=== PATIENT | female | born 1970 | race Caucasian/White ===

== ENCOUNTER 2017-04-15 18:49 | Inpatient (IN) | payer OTHER, MEDICAID ==
[~2017-04-15] VITALS: Ht 160 cm; Wt 45.4 kg
[2017-04-15 19:03] VITALS: BP 126/79
--- NOTE | 2017-04-15 19:46 | NUR ---
PT TO BED 1 FROM [facility]
--- NOTE | 2017-04-15 19:47 | NUR ---
PATIENT PRESENTS TO ED WITH C/O CHEST PAIN AND COUGHING/FEVER. BIBA FROM HOME. ASA 324MG PO GIVEN IN FIELD,COUGH. HX: LUNG CANCER. TAKING EMYCIN UNKNOWN DOSAGE PER PATIENT,STILL RECEIVING CHEMO. TX PT DENIES N/V/D; SKIN IS PINK/WARM/DRY; AAOX4 WITH EVEN AND STEADY GAIT; HR EVEN AND REGULAR; PT DENIES ANY FEVER, CP, SOB, OR COUGH AT THIS TIME; PATIENT STATES PAIN OF 10/10 AT THIS TIME; PATIENT POSITIONED FOR COMFORT; HOB ELEVATED; BEDRAILS UP X2; BED DOWN. ER MD MADE AWARE OF PT STATUS.
[2017-04-15] MEDS ORDERED: IBUPROFEN 600 MG TAB ONE (19:58)
[2017-04-15] MEDS ORDERED: NACL 0.9% 2,000 ML IV ONE (20:15)
[2017-04-15 20:26] LABS: HEMOGLOBIN 12.6 g/dL (12.0-16.0); MEAN CORPUSCULAR HEMOGLOBIN 26 pg (27-31); MEAN CORPUSCULAR HGB CONC 32 g/dL (33-37); MEAN CORPUSCULAR VOLUME 81 fL (80-94); PLATELET COUNT (AUTO) 256 K/uL (140-450); RED BLOOD CELL COUNT(AUTO) 4.83 MIL/uL (4.20-5.40); RED CELL DISTRIBUTION WIDTH 12.4 % (11.6-13.7); WHITE BLOOD COUNT (AUTO) 4.6 K/uL (4.8-10.8)
[2017-04-15] MEDS ORDERED: VANCOMYCIN 1,000 MG in DEXTROSE 5% 250 ML IV ONE (20:30)
[2017-04-15] MEDS ORDERED: cefTRIAXone 2,000 MG in DEXTROSE 5% 100 ML IV ONE (20:30)
[2017-04-15 20:32] LABS: ANION GAP 13.2 (8-16); CARBON DIOXIDE 27.9 mmol/L (21-32); CREATININE 1.1 mg/dL (0.6-1.3); POTASSIUM 4.1 mmol/L (3.5-5.1)
[2017-04-15 20:38] LABS: ALBUMIN 3.6 g/dL (3.4-5.0); TOTAL BILIRUBIN 0.3 mg/dL (0.0-1.0)
[2017-04-15 20:43] LABS: EOSINOPHILS % (MANUAL) 1 % (0-4); LYMPHOCYTES % (MANUAL) 24 % (20-46); MAGNESIUM 2.1 mg/dL (1.8-2.4); MONOCYTES % (MANUAL) 14 % (5-12); URIC ACID 4.9 mg/dL (2.6-7.2)
[2017-04-15] MEDS ORDERED: cefTRIAXone 2,000 MG VIAL ONE (20:59)
[2017-04-15] MEDS ORDERED: VANCOMYCIN 1,000 MG VIAL ONE (20:59)
[2017-04-15] MEDS ORDERED: MORPHINE SULFATE 2 MG/ML SYR IVP ONE (21:15)
[2017-04-15] MEDS ORDERED: ONDANSETRON 4 MG/2 ML VIAL IVP ONE (21:15)
--- NOTE | 2017-04-15 21:30 | NUR ---
Patient appears to be resting comfortably in bed. Vital Signs within normal limits. Respirations even and unlabored.
--- NOTE | 2017-04-15 21:45 | NUR ---
PT TO CT VIA [facility] IN STABLE CONDITION
--- NOTE | 2017-04-15 22:20 | NUR ---
PT RETURNED FROM CT [facility]IA [facility] IN STABLE CONDITION
[2017-04-15] MEDS: NACL 0.9% 1,000 ML IV SCH (23:25)
[2017-04-15] MEDS ORDERED: LEVOFLOXACIN 750 MG/D5W PREMIX 150 ML IV ONE (23:25)
[2017-04-15] MEDS ORDERED: LORazepam 0.5 MG TAB PO PRN (23:25)
[2017-04-15] MEDS ORDERED: ACETAMINOPHEN 325 MG TAB PO PRN (23:25)
[2017-04-15] MEDS ORDERED: DOCUSATE SODIUM 100 MG GELCAP PO PRN (23:25)
--- NOTE | 2017-04-15 23:32 | NUR ---
LUMBAR PUNCTAR PERFORMED BY DR PARRA. PT TOLERATED WELL.
[2017-04-15] MEDS ORDERED: MORPHINE SULFATE 4 MG/ML SYR IVP ONE (23:40)
[2017-04-16 00:14] VITALS: BP 93/64
[2017-04-16 00:14] LABS: CSF GLUCOSE 46 mg/dL (40-70)
--- NOTE | 2017-04-16 00:14 | NUR ---
RECEIVED PT FROM ER. PT IN STABLE CONDITION. NO S/S OF DISTRESS NOTED. PT IS AAOX4, COUGH NOTED INTERMITTENT, NON-PRODUCTIVE. SKIN WARM AND DRY TO TOUCH, COLOR WNL. IV TO R AC 20G PATENT AND INTACT. SKIN IS INTACT. BOWEL SOUNDS PRESENT. PT CAME IN WITH C/O SOB AND DX PNEUMONIA. PT HAS LUNG CANCER BUT STOPPED CHEMO 5 YEARS AGO PER PT. RAISIN WASHER [id number] USED TO ASK ADMISSION QUESTIONS.
[2017-04-16 00:15] LABS: CSF PROTEIN 40.8 mg/dL (15-45)
--- NOTE | 2017-04-16 00:20 | NUR ---
DR. DEE IN TO SEE PT AND ASSESS PT. PLAN OF CARE DISCUSSED WITH PT
--- NOTE | 2017-04-16 00:20 | NUR ---
Patient will be admitted to care of DR GRECO. Admited to TELE. Will go to [id number]. Belongings list completed. Report to CARMEN ARIAS.
[2017-04-16 01:06] LABS: CHOL/HDL RATIO 5.3 (1-4.5); FREE T4 (FREE THYROXINE) 1.01 ng/dL (0.76-1.46); PHOSPHORUS 4.2 mg/dL (2.5-4.9); THYROID STIMULATING HORMONE 0.42 uIU/mL (0.34-3.74)
[2017-04-16] MEDS ORDERED: ALBUTEROL SULFATE/IPRATROPIU 3 ML SOL IH PRN (01:10)
[2017-04-16 01:36] LABS: APPEARANCE,URINE CLEAR (CLEAR); BILIRUBIN,URINE NEGATIVE (NEGATIVE); BLOOD, URINE NEGATIVE (NEGATIVE); COLOR,URINE YELLOW (YELLOW); LEUKOCYTE ESTERASE ,URINE NEGATIVE (NEGATIVE); NITRITE, URINE NEGATIVE (NEGATIVE); PH,URINE 6.5 (5.0-9.0); UGLUCOSE NEGATIVE (NEGATIVE)
[2017-04-16 01:43] LABS: BARBITURATE, URINE NEG. ng/ml (NEG <=200); BENZODIAZEPINE, URINE NEG. ng/mL (NEG <=200); CANNABINOID, URINE NEG. ng/mL (NEG <=50); COCAINE, URINE NEG. ng/mL (NEG <=300); OPIATE, URINE NEG. ng/mL (NEG <=2000); PHENCYCLIDINE SCREEN,URINE NEG. ng/mL (NEG <=25)
[2017-04-16 03:27] LABS: RBC,URINE 0-5 (RARE) /HPF (0-5); WBC,URINE 0-5 (RARE) /HPF (0-5)
--- NOTE | 2017-04-16 04:05 | NUR ---
0325 [facility] HHNTX. PATIENT ON ROOM AIR SATS WERE 77%. PT HAS CONTINUOUS COUGH. HHNTX GIVEN AND PLACED PT ON 3LNC. SATS IMPROVED. 100%
[2017-04-16] MEDS: KETOROLAC 30 MG/ML VIAL IVP PRN ×4 (05:03→21:04)
[2017-04-16 05:13] VITALS: BP 100/67
[2017-04-16] MEDS ORDERED: COBI1TAB PO (06:17)
[2017-04-16] MEDS ORDERED: EMTR1TAB16 PO (06:17)
[2017-04-16 06:57] LABS: BASOPHILS # (AUTO) 0.1 K/uL (0.00-0.22); BASOPHILS % (AUTO) 1.2 % (0.0-2.0); EOSINOPHILS # (AUTO) 0.1 K/uL (0-0.4); EOSINOPHILS % (AUTO) 1.5 % (0.0-4.0); HEMATOCRIT 35.6 % (36-48); HEMOGLOBIN 11.7 g/dL (12.0-16.0); LYMPHOCYTES # (AUTO) 0.8 K/uL (2.5-16.5); LYMPHOCYTES % (AUTO) 17.6 % (20.5-51.1); MEAN CORPUSCULAR HEMOGLOBIN 27 pg (27-31); MEAN CORPUSCULAR HGB CONC 33 g/dL (33-37); MEAN CORPUSCULAR VOLUME 82 fL (80-94); MONOCYTES # (AUTO) 0.7 K/uL (0.8-1.0); MONOCYTES % (AUTO) 15.4 % (1.7-9.3); NEUTROPHILS # (AUTO) 2.9 K/uL (1.8-7.7); NEUTROPHILS % (AUTO) 64.3 % (42.2-75.2); PLATELET COUNT (AUTO) 195 K/uL (140-450); RED BLOOD CELL COUNT(AUTO) 4.35 MIL/uL (4.20-5.40); RED CELL DISTRIBUTION WIDTH 12.9 % (11.6-13.7); WHITE BLOOD COUNT (AUTO) 4.6 K/uL (4.8-10.8)
[2017-04-16] MEDS: ALBUTEROL SULFATE/IPRATROPIU 3 ML SOL IH SCH ×3 (07:03→19:00)
[2017-04-16 07:18] LABS: ANION GAP 10.3 (8-16); CARBON DIOXIDE 28.3 mmol/L (21-32); CREATININE 0.9 mg/dL (0.6-1.3); POTASSIUM 4.6 mmol/L (3.5-5.1)
[2017-04-16 07:26] LABS: MAGNESIUM 1.7 mg/dL (1.8-2.4); PHOSPHORUS 3.9 mg/dL (2.5-4.9)
--- NOTE | 2017-04-16 07:48 | NUR ---
REPORT GIVEN TO DAY NURSE FOR CONTINUITY OF CARE, PT IN STABLE CONDITION. NO S/S OF DISTRESS NOTED
--- NOTE | 2017-04-16 07:49 | NUR ---
RECEIVED REPORT FROM SHOP WELDER RN AT BEDSIDE FOR CONTINUITY OF CARE. UPDATED THE BOARD. PATIENT IS A0X4, NEPALI SPEAKING, CURRENTLY GETTING BREATHING TREATMENT. PATIENT ON NC O2 3L. IV ON L AC #20G WITH NS RUNNING AT 100ML/HR. PATIENT IS AMBULATORY. SKIN INTACT. VITAL SIGNS WITHIN NORMAL LIMITS WITH BP 94/59. SAFETY PRECAUTIONS IN PLACE, BED ON LOWEST SETTING, CALL LIGHT WITHIN REACH. WILL CONTINUE TO MONITOR PATIENT.
[2017-04-16 08:00] VITALS: BP 94/59
--- NOTE | 2017-04-16 08:20 | NUR ---
FAXED OVER REQUEST FOR MEDICAL RECORDS.
[2017-04-16] MEDS: LACTOBACILLUS RHAMNOSUS GG 1 EACH CAP PO SCH (08:42)
[2017-04-16] MEDS: PANTOPRAZOLE 40 MG TABEC PO SCH (08:42)
[2017-04-16] MEDS: SULFAMETH/TRIMETH 400/80MG 1 TAB PO SCH ×2 (08:43→20:53)
--- NOTE | 2017-04-16 08:45 | NUR ---
ADMINISTERED MORNING MEDICATIONS. PT TOLERATED THEM WELL. PT C/O PAIN 9/10 D/T RIGHT UPPER CHEST AND BACK PAIN. TORADOL IVP PRN ADMINISTERED. DR. PIÑA IN TO SEE PATIENT. DR. PIÑA ORDERED KPAD FOR PT'S COMFORT. KPAD APPLIED. SAFETY PRECAUTIONS IN PLACE, CALL LIGHT WITHIN REACH, WILL CONTINUE TO MONITOR PATIENT.
--- NOTE | 2017-04-16 08:46 | NUR ---
PATIENT HAS BEEN SCREENED AND CATEGORIZED MODERATE NUTRITION RISK. PATIENT WILL BE SEEN IN 3-5 DAYS. 04/17/17-04/19/[address]
--- NOTE | 2017-04-16 09:00 | NUR ---
MEDICAL [place] [facility] G[place] THEM TO DR. PIÑA FOR REVIEW.
[2017-04-16] MEDS: NACL 0.9% 1,000 ML IV SCH ×2 (09:01→19:25)
[2017-04-16] MEDS ORDERED: EMTRICITABINE PO SCH (09:25)
[2017-04-16] MEDS ORDERED: DARUNAVIR PO SCH (09:25)
[2017-04-16] MEDS ORDERED: TENOFOV ALAFENAM PO SCH (09:25)
[2017-04-16] MEDS ORDERED: COBICISTAT PO SCH (09:25)
[2017-04-16] MEDS ORDERED: MAG SULF 2000 MG/WATER PREMIX 100 ML IV SCH (10:00)
--- NOTE | 2017-04-16 10:30 | NUR ---
NOTIFIED PT TO HAVE NON FORMULARY MEDICATIONS BROUGHT FROM HOME SO WE CAN DISPENSE IT TO PT HERE. PT WILL HAVE MOM BRING MEDICATIONS FROM HOME.
[2017-04-16 12:00] VITALS: BP 92/60
--- NOTE | 2017-04-16 12:50 | NUR ---
PATIENT IS SLEEPING, NO SIGNS OF DISTRESS OR SOB NOTED. SAFETY PRECAUTIONS IN PLACE, CALL LIGHT WITHIN REACH, WILL CONTINUE TO MONITOR PATIENT.
--- NOTE | 2017-04-16 14:42 | NUR ---
PATIENT C/O PAIN IN LEFT UPPER CHEST AND BACK, /10. TORADOL PRN IVP GIVEN. PATIENT FELT WARM, ORAL TEMP 100.8, KPAD REMOVED AND ICE PACK GIVEN. SAFETY PRECAUTIONS IN PLACE, CALL LIGHT WITHIN REACH. WILL CONTINUE TO MONITOR PATIENT.
--- NOTE | 2017-04-16 15:42 | NUR ---
PATIENT IS RESTING. ORAL TEMP 99.5. NO SIGNS OF DISTRESS OR SOB NOTED. SAFETY PRECAUTIONS IN PLACE. CALL LIGHT WITHIN REACH. WILL CONTINUE TO MONITOR PATIENT.
[2017-04-16 16:00] VITALS: BP 94/53
--- NOTE | 2017-04-16 16:50 | NUR ---
PATIENT AMBULATED TO THE BATHROOM WITH STEADY GAIT. ORAL TEMP 98.2, KPAD REAPPLIED FOR COMFORT. NO SIGNS OF DISTRESS OR SOB NOTED. SAFETY PRECAUTIONS IN PLACE. CALL LIGHT WITHIN REACH. WILL CONTINUE TO MONITOR PATIENT.
--- NOTE | 2017-04-16 18:20 | NUR ---
PATIENT IS SLEEPING. NO S/SX OF DISTRESS OR SOB NOTED. SAFETY PRECAUTIONS IN PLACE, CALL LIGHT WITHIN REACH. WILL CONTINUE TO MONITOR PATIENT.
--- NOTE | 2017-04-16 19:05 | NUR ---
GAVE REPORT TO FITTER TYPE BAR AND SEGMENT RN AT BEDSIDE FOR CONTINUITY OF CARE. PATIENT IN STABLE CONDITION.
--- NOTE | 2017-04-16 19:07 | NUR ---
RECEIVED REPORT FROM DAY SHIFT NURSE. AAOX4. RT IN THE ROOM FOR BREATHING TREATMENT. IV TO LEFT AC #20G WITH NS AT 100 ML/HR, INFUSING WELL. DISCUSSED PLAN OF CARE, PT VERBALIZED UNDERSTANDING. NO DISTRESS NOTED. CALL LIGHT WITHIN REACH.
[2017-04-16 20:00] VITALS: BP 98/67
--- NOTE | 2017-04-16 21:45 | NUR ---
PT SLEEPING BUT WAKES EASILY. NO S/S OF PAIN. WILL CONTINUE TO MONITOR. CALL LIGHT WITHIN REACH.
[2017-04-16] MEDS: LEVOFLOXACIN 750 MG/D5W PREMIX 150 ML IV SCH (23:46)
[2017-04-17] VITALS: BP 100/62
--- NOTE | 2017-04-17 00:15 | NUR ---
PT IN BED, AWAKE. NO DISTRESS NOTED. CALL LIGHT WITHIN REACH.
--- NOTE | 2017-04-17 03:00 | NUR ---
DR. SOLOMON, INFECTIOUS DISEASE CAME IN TO SEE PT. ORDERED LEFT SHOULDER XRAY AND ORTHOPEDIC EVAL.
--- NOTE | 2017-04-17 03:00 | NUR ---
DR. SOLOMON, INFECTIOUS DISEASE CAME IN TO SEE PT. ORDERED RIGHT SHOULDER XRAY AND ORTHOPEDIC EVAL. Addendum: 04/17/17 at 0453 by Eleni Han RN ERROR
[2017-04-17] MEDS: KETOROLAC 30 MG/ML VIAL IVP PRN ×4 (03:11→23:19)
[2017-04-17 04:20] VITALS: BP 84/50
[2017-04-17] MEDS ORDERED: NACL 0.9% 250 ML IV SCH (04:25)
[2017-04-17] MEDS: NACL 0.9% 1,000 ML IV SCH ×2 (05:25→18:15)
--- NOTE | 2017-04-17 05:28 | NUR ---
VS TAKEN. BP 84/50. DR. DEE ORDERED NS 250ML BOLUS. ORDER CARRIED OUT.
[2017-04-17 06:27] LABS: T4 (THYROXINE) 7.5 ug/dL (4.5-12.0)
--- NOTE | 2017-04-17 06:28 | NUR ---
V/S TAKEN BP 96/62, HR 85, RR 18, O2 96% AT 2 L/MIN VIA NC, RR 20. DR. DEE MADE AWARE. NO NEW ORDER.
[2017-04-17] MEDS: ALBUTEROL SULFATE/IPRATROPIU 3 ML SOL IH SCH ×3 (07:06→19:34)
--- NOTE | 2017-04-17 07:20 | NUR ---
ENDORSED PT TO DAY SHIFT NURSE. PT IN STABLE CONDITION.
--- NOTE | 2017-04-17 07:21 | NUR ---
RECEIVED REPORT FROM COAL MINER NURSE. AAOX4, NEPALI SPEAKING, RT IN THE ROOM FOR BREATHING TREATMENT. IV TO LEFT AC #20G WITH NS AT 100 ML/HR, INFUSING WELL. NO DISTRESS NOTED. CALL LIGHT WITHIN REACH. WILL CONTINUE TO MONITOR PATIENT.
[2017-04-17 07:49] LABS: HEMATOCRIT 33.7 % (36-48); HEMOGLOBIN 10.9 g/dL (12.0-16.0); MEAN CORPUSCULAR HEMOGLOBIN 27 pg (27-31); MEAN CORPUSCULAR HGB CONC 32 g/dL (33-37); MEAN CORPUSCULAR VOLUME 83 fL (80-94); PLATELET COUNT (AUTO) 173 K/uL (140-450); RED BLOOD CELL COUNT(AUTO) 4.08 MIL/uL (4.20-5.40); WHITE BLOOD COUNT (AUTO) 3.5 K/uL (4.8-10.8)
[2017-04-17 08:00] VITALS: BP 100/61
[2017-04-17 08:28] LABS: ANION GAP 10.4 (8-16); CREATININE 0.8 mg/dL (0.6-1.3); POTASSIUM 4.4 mmol/L (3.5-5.1)
[2017-04-17] MEDS: CEFEPIME 1,000 MG in DEXTROSE 5% 50 ML IV SCH ×2 (09:04→22:15)
[2017-04-17] MEDS: LACTOBACILLUS RHAMNOSUS GG 1 EACH CAP PO SCH (09:04)
[2017-04-17] MEDS: PANTOPRAZOLE 40 MG TABEC PO SCH (09:04)
[2017-04-17] MEDS: SULFAMETH/TRIMETH 400/80MG 1 TAB PO SCH ×2 (09:23→22:32)
--- NOTE | 2017-04-17 09:25 | NUR ---
ADMINISTERED MORNING MEDICATIONS AND TORADOL IVP PRN FOR PAIN. PATIENT TOLERATED THEM WELL. NO S/SX OF DISTRESS OR SOB NOTED. SAFETY PRECAUTIONS IN PLACE. BED ON LOWEST SETTING, CALL LIGHT WITHIN REACH. WILL CONTINUE TO MONITOR PATIENT.
[2017-04-17 09:47] LABS: LYMPHOCYTES % (MANUAL) 31 % (20-46); MONOCYTES % (MANUAL) 13 % (5-12)
--- NOTE | 2017-04-17 12:33 | NUR ---
PT IS ASLEEP NO APPARENT DISTRESS
--- NOTE | 2017-04-17 13:08 | NUR ---
LAB CALLED, PT POSITIVE FOR MRSA IN NARES. PHYSICIANS NOTIFIED. ISOLATION PRECAUTIONS PUT IN PLACE. PATIENT SLEEPING. SAFETY PRECAUTIONS IN PLACE. WILL CONTINUE TO MONITOR PATIENT.
--- NOTE | 2017-04-17 14:15 | NUR ---
PATIENT ASLEEP. NO SIGNS OF DISTRESS OR SOB NOTED. SAFETY PRECAUTIONS IN PLACE. WILL CONTINUE TO MONITOR PATIENT.
[2017-04-17] MEDS: CHLORHEXADINE GLUC 2% CLOTH TP SCH (14:46)
[2017-04-17 16:00] VITALS: BP 94/66
--- NOTE | 2017-04-17 16:45 | NUR ---
PATIENT C/O PAIN ON LEFT UPPER CHEST 8/10, TORADOL IVP PRN ADMINISTERED. NO SIGNS OF DISTRESS NOTED. SAFETY PRECAUTIONS IN PLACE. WILL CONTINUE TO MONITOR PATIENT.
[2017-04-17] MEDS ORDERED: DESCOVY 200-25MG TAB PO SCH (17:23)
[2017-04-17] MEDS ORDERED: PREZCOBIX PO SCH (17:25)
--- NOTE | 2017-04-17 18:25 | NUR ---
ADMINISTERED PATIENT'S HOME MEDICATION. PATIENT TOLERATED THEM WELL. NO SIGNS OF DISTRESS OR SOB NOTED. SAFETY PRECAUTIONS IN PLACE. CALL LIGHT WITHIN REACH. WILL CONTINUE TO MONITOR PATIENT.
--- NOTE | 2017-04-17 19:17 | NUR ---
REPORT GIVEN TO SUBSTATION INSPECTOR RN AT BEDSIDE FOR CONTINUITY OF CARE. PATIENT IN STABLE CONDITION.
--- NOTE | 2017-04-17 19:18 | NUR ---
RECEIVED BEDSIDE REPORT FROM DAY SHIFT NURSE SHAHRAM RN, PT STABLE, NO DISTRESS NOTED, NO SOB, COUGHING, IV TO L AC 20 G RUNNING NS @ 100 ML/HR, INFUSING WELL, INITIAL ASSESSMENT DONE, ALL SAFETY PRECAUTION MET, CALL LIGHT WITHIN REACH, WILL CONTINUE TO MONITOR.
--- NOTE | 2017-04-17 22:30 | NUR ---
DUE MEDICATION GIVEN, PT TOLERATED WELL, NO DISTRESS NOTED, CALL LIGHT WITHIN REACH, WILL CONTINUE TO MONITOR.
--- NOTE | 2017-04-17 23:19 | NUR ---
PT C/O OF PAIN 11/16, PAIN MEDICATION GIVEN, PT TOLERATED WELL, WILL CONTINUE TO MONITOR.
[2017-04-17] MEDS: LEVOFLOXACIN 750 MG/D5W PREMIX 150 ML IV SCH (23:25)
[2017-04-18] VITALS: BP 92/54
[2017-04-18] MEDS: NACL 0.9% 1,000 ML IV SCH (01:25)
[2017-04-18] MEDS: ONDANSETRON 4 MG/2 ML VIAL IM/IVP PRN (03:38)
--- NOTE | 2017-04-18 03:38 | NUR ---
PT C/O OF NAUSEA, NAUSEA MEDICATION GIVEN, PT TOLERATED WELL, NO DISTRESS NOTED, RESTING, CALL LIGHT WITHIN REACH, WILL CONTINUE TO MONITOR.
[2017-04-18] MEDS: ALBUTEROL SULFATE/IPRATROPIU 3 ML SOL IH SCH ×3 (07:25→19:05)
[2017-04-18 08:00] VITALS: BP 86/54
[2017-04-18] MEDS: CHLORHEXADINE GLUC 2% CLOTH TP SCH (14:00)
--- NOTE | 2017-04-18 14:21 | NUR ---
PT REFUSED TO DO WALK TO SEE IF SHE QUALIFY FOR HOME 02. CARMEN CARTER AT BEDSIDE AND TRANSLATED.
--- NOTE | 2017-04-18 14:52 | NUR ---
WALK TO QUALIFY HOME O2 DONE. RESULTS GIVEN TO Michael CALDWELL
[2017-04-18 15:23] LABS: POTASSIUM 4.8 mmol/L (3.5-5.1)
[2017-04-18 15:24] LABS: ANION GAP 9.8 (8-16); CREATININE 0.8 mg/dL (0.6-1.3)
[2017-04-18 15:58] LABS: HEMATOCRIT 36.5 % (36-48); HEMOGLOBIN 11.6 g/dL (12.0-16.0); MEAN CORPUSCULAR HEMOGLOBIN 26 pg (27-31); MEAN CORPUSCULAR HGB CONC 32 g/dL (33-37); MEAN CORPUSCULAR VOLUME 82 fL (80-94); PLATELET COUNT (AUTO) 185 K/uL (140-450); RED BLOOD CELL COUNT(AUTO) 4.45 MIL/uL (4.20-5.40); RED CELL DISTRIBUTION WIDTH 13.2 % (11.6-13.7); WHITE BLOOD COUNT (AUTO) 2.8 K/uL (4.8-10.8)
[2017-04-18 16:00] VITALS: BP 81/49
[2017-04-18 16:03] LABS: EOSINOPHILS % (MANUAL) 1 % (0-4); LYMPHOCYTES % (MANUAL) 21 % (20-46); MONOCYTES % (MANUAL) 11 % (5-12)
[2017-04-18] MEDS ORDERED: ALBUTEROL SULFATE/IPRATROPIU 3 ML SOL IH ONE (18:56)
--- NOTE | 2017-04-18 19:30 | NUR ---
ENDORSED PATIENT TO SENIOR PUBLICATIONS SPECIALIST RN FOR CONTINUITY OF CARE. PATIENT IN STABLE CONDITION.
--- NOTE | 2017-04-18 19:31 | NUR ---
RECEIVED PT FROM DAY NURSE, PT IN STABLE CONDITION. NO S/S OF DISTRESS NOTED. PT AAOX4, ON 2L O2 VIA NC, IV TO R W 22G, PATENT AND INTACT. SKIN IS INTACT, SKIN IS WARM AND DRY TO TOUCH. RESPIRATIONS ARE EVEN AND UNLABORED, INITIAL ASSESSMENT COMPLETED PLAN OF CARE DISCUSSED WITH PT AT THE BEDSIDE, VERBALIZED UNDERSTANDING. ALL SAFETY PRECAUTIONS MET, CALL LIGHT WITHIN REACH, BOARD UPDATED WILL CONTINUE TO MONITOR
[2017-04-18] MEDS ORDERED: SULFAMETH/TRIMETH 400/80MG 1 TAB ONE ×2 (20:14→21:00)
[2017-04-18] MEDS ORDERED: KETOROLAC 30 MG/ML VIAL ONE (20:15)
[2017-04-18] MEDS: KETOROLAC 30 MG/ML VIAL IVP PRN (20:20)
[2017-04-18] MEDS: CEFEPIME 1,000 MG in DEXTROSE 5% 50 ML IV SCH (20:23)
[2017-04-18] MEDS: SULFAMETH/TRIMETH 400/80MG 1 TAB PO SCH ×2 (21:00→21:59)
[2017-04-18] MEDS ORDERED: ZOLPIDEM 10 MG TAB ONE (21:44)
[2017-04-18] MEDS ORDERED: ZOLPIDEM 5 MG TAB ONE (21:48)
[2017-04-18] MEDS: ZOLPIDEM 5 MG TAB PO PRN (21:59)
[2017-04-18] MEDS: LEVOFLOXACIN 750 MG/D5W PREMIX 150 ML IV SCH (23:00)
[2017-04-19] VITALS: BP 88/54
[2017-04-19] MEDS: LEVOFLOXACIN 750 MG/D5W PREMIX 150 ML IV SCH ×2 (00:21→23:56)
[2017-04-19] MEDS ORDERED: LEVOFLOXACIN 750 MG/D5W PREMIX 150 ML IV ONE ×2 (00:26→01:12)
[2017-04-19] MEDS ORDERED: ONDANSETRON 4 MG/2 ML VIAL ONE (04:40)
[2017-04-19] MEDS ORDERED: KETOROLAC 30 MG/ML VIAL ONE (04:40)
--- NOTE | 2017-04-19 04:40 | NUR ---
PT FOUND VOMITING AND STATES SHE IS IN PAIN. PT MEDICATE FOR PAIN 9/10 IN HEAD WITH TORADOL. ZOFRAN GIVEN FOR VOMITING. 4ML OF EMESIS NOTED.
[2017-04-19] MEDS: KETOROLAC 30 MG/ML VIAL IVP PRN ×3 (04:43→22:02)
[2017-04-19] MEDS: ONDANSETRON 4 MG/2 ML VIAL IM/IVP PRN ×3 (04:43→23:57)
[2017-04-19] MEDS: NACL 0.9% 1,000 ML IV SCH (04:52)
[2017-04-19] MEDS ORDERED: ALBUTEROL SULFATE/IPRATROPIU 3 ML SOL IH ONE (07:02)
--- NOTE | 2017-04-19 07:46 | NUR ---
REPORT GIVEN TO DAY NURSE FOR CONTINUITY OF CARE, PT IN STABLE CONDITION. NO S/S OF OF DISTRESS NOTED.
[2017-04-19 08:00] VITALS: BP 85/62
[2017-04-19] MEDS: ALBUTEROL SULFATE/IPRATROPIU 3 ML SOL IH SCH ×3 (08:10→19:40)
[2017-04-19] MEDS: PANTOPRAZOLE 40 MG TABEC PO SCH ×2 (09:00→10:39)
[2017-04-19] MEDS: SULFAMETH/TRIMETH 400/80MG 1 TAB PO SCH ×2 (09:00→21:00)
[2017-04-19] MEDS: LACTOBACILLUS RHAMNOSUS GG 1 EACH CAP PO SCH ×2 (09:00→10:39)
[2017-04-19] MEDS: CEFEPIME 1,000 MG in DEXTROSE 5% 50 ML IV SCH ×2 (10:38→22:01)
[2017-04-19] MEDS: PREZCOBIX PO SCH (10:40)
[2017-04-19] MEDS: DESCOVY 200-25MG TAB PO SCH (10:40)
--- NOTE | 2017-04-19 12:05 | NUR ---
CLOSING MACHINE OPERATOR SPEEDY ASSESSED PATIENTS NEED FOR OXYGEN USE ON DISCHARGE. PATIENT WAS SATURATING AT 94% ON ROOM AIR FOR 15-20 MINUTES. ONLY WHEN ATTEMPTED TO VOMIT DID SATURATION DROP TO 87%-88%. HE EDUCATED PATIENT TO TAKE DEEP BREATHS IF FEELING SHORT OF BREATH. WILL CONTINUE TO MONITOR PATIENT ON ROOM AIR.
--- NOTE | 2017-04-19 12:08 | NUR ---
patient pox 98-94% at rest, ambulated in room to the chair, pox 98-94% patient went back to bed and pox 94%. patient noted with nausea and started to vomit pox dropped to 88-86 then went back up to 92-94% on room. I noticed the drop of oxygen when she wants to vomit. Kept monitoring pox and still 94%. Emelia the RN present in room. Will continue to monitor pox at room air and will continue to document finding.
--- NOTE | 2017-04-19 12:41 | NUR ---
SPOKE WITH DR PIÑA ABOUT PATIENT CONTINUING TO FEEL NAUSEATED AND VOMITING EVEN AFTER GIVING ZOFRAN. STILL COMPLAINING OF HEAD GOING TO EXPLODE EVEN AFTER TORADOL WAS GIVEN.
--- NOTE | 2017-04-19 13:42 | NUR ---
CHECKED PATIENTS O2 SATURATION, IT IS 95%-96% ON ROOM AIR. WILL CONTINUE TO MONITOR.
[2017-04-19] MEDS ORDERED: HYDROcodone/APAP 10/325 MG 1 TAB TAB PO PRN (14:20)
[2017-04-19] MEDS ORDERED: HYDROcodone/APAP 7.5/325 MG 1 TAB PO PRN (14:20)
[2017-04-19] MEDS ORDERED: SUMAtriptan 50 MG TAB PO SCH (14:30)
[2017-04-19 16:00] VITALS: BP 90/58
--- NOTE | 2017-04-19 16:14 | NUR ---
04/19/2017 RD INITIAL ASSESSMENT COMPLETED PLEASE REFER TO NUTRITION ASSESSMENT UNDER CARE ACTIVITY FOR ESTIMATED NUTRITIONAL NEEDS. 1. CONTINUE REGULAR DIET S TOLERATED BY PT, ENCOURAGE INCREASED PO INTAKE NAUSEA/VOMITING RESOLVES. RD TO FOLLOW-UP IN 2-3 DAYS PATIENT IS HIGH RISK. GHASSAN FOOTE RD Addendum: 04/20/17 at [address] DIET CONSULT DISCUSSED TODAY WITH DR. PIÑA. PT STILL UNABLE TO CONSUME ADEQUATE ENERGY/PROTEIN VIA PO INTAKE DUE TO NAUSEA. WE WILL TRY SIX SMALL MEALS PER DAY, AND A HEALTH SHAKE TID. DIETARY STAFF WILL ATTEMPT TO OBTAIN MENU PREFERENCES FROM HER DAILY AND WE WILL MONITOR PO INTAKE CLOSELY. WILL FOLLOW PLAN FOR 2 MORE DAYS AND WILL REASSESS ADEQUACY OF PO INTAKE ON 04/23/17.
--- NOTE | 2017-04-19 19:25 | NUR ---
ENDORSED PATIENT TO FIRE PROTECTION DESIGNER NURSE FOR CONTINUITY OF CARE. PATIENT IN STABLE CONDITION.
--- NOTE | 2017-04-19 21:51 | NUR ---
BACTRIM NOT ON THE UNIT, [facility] ANOTHER UNIT
--- NOTE | 2017-04-19 21:55 | NUR ---
GRACIELA INSPECTOR PURCHASED PARTS STATES THERE IS NO BACTRIM IN ANY UNIT IN HOSPITAL AND TO NON ADMIN MEDICATION FOR TONIGHT AND IT WILL HAVE TO BE RESTOCKED IN THE MORNING. CHECKED PTS CASSETTE WELL, NONE ARE IN THERE.
[2017-04-19] MEDS: ZOLPIDEM 5 MG TAB PO PRN (22:01)
[2017-04-20] VITALS: BP 96/64
--- NOTE | 2017-04-20 03:30 | NUR ---
PT FOUND COUGHING ALOT, CALLED RT TO COME ASSESS PT AND DO POSSIBLE BREATHING TREATMENT BUT PT REFUSED AT THIS TIME
--- NOTE | 2017-04-20 06:10 | NUR ---
DR. PIÑA IN TO SEE PT AND DISCUSS PLAN OF CARE WITH PT
[2017-04-20] MEDS ORDERED: diphenhydrAMINE 50 MG/ML VIAL IVP PRN (06:20)
[2017-04-20] MEDS ORDERED: HYDROcodone/APAP 7.5/325 MG 1 TAB PO PRN (06:20)
[2017-04-20] MEDS: ALBUTEROL SULFATE/IPRATROPIU 3 ML SOL IH SCH ×3 (07:00→20:15)
[2017-04-20] MEDS: BENZOCAINE/MENTHOL 1 LOZ MM PRN (07:05)
[2017-04-20] MEDS: ONDANSETRON 4 MG/2 ML VIAL IM/IVP PRN ×2 (07:05→13:21)
[2017-04-20] MEDS: guaiFENesin 20 MG/ML UDC PO PRN ×2 (07:05→19:56)
--- NOTE | 2017-04-20 07:25 | NUR ---
RECEIVED PATIENT REPORT AT BEDSIDE FROM NIGHT NURSE. PATIENT IS AAOX3 AND SHOWS NO S/S OF ACUTE DISTRESS ON ROOM AIR. PATIENT SKIN IS INTACT. IV NOTED ON THE RIGHT WRIST WITH IVF'S INFUSING WELL WITH NO SIGNS OF INFILTRATION. PATIENT STATES TOLERABLE GENERALIZED PAIN OF 6/10. ON MEDSURG. FALL RISK AND NEUTROPENIC PRECAUTIONS ARE IN PLACE. BED IS IN LOW POSITION WITH CALL LIGHT WITHIN REACH.
[2017-04-20 07:45] LABS: HEMATOCRIT 34.4 % (36-48); HEMOGLOBIN 11.4 g/dL (12.0-16.0); MEAN CORPUSCULAR HEMOGLOBIN 26 pg (27-31); MEAN CORPUSCULAR HGB CONC 33 g/dL (33-37); MEAN CORPUSCULAR VOLUME 79 fL (80-94); PLATELET COUNT (AUTO) 198 K/uL (140-450); RED BLOOD CELL COUNT(AUTO) 4.33 MIL/uL (4.20-5.40); WHITE BLOOD COUNT (AUTO) 2.5 K/uL (4.8-10.8)
[2017-04-20 08:00] VITALS: BP 83/52
--- NOTE | 2017-04-20 08:20 | NUR ---
ENDORSED PT TO ALCIRA MORALES FOR CONTINUITY OF CARE, PT IN STABLE CONDITION. NO S/S OF DISTRESS NOTED AT THIS TIME. IV PATENT AND INTACT.
[2017-04-20 08:45] LABS: EOSINOPHILS % (MANUAL) 7 % (0-4); LYMPHOCYTES % (MANUAL) 23 % (20-46); MONOCYTES % (MANUAL) 15 % (5-12)
[2017-04-20] MEDS: DESCOVY 200-25MG TAB PO SCH (09:04)
[2017-04-20] MEDS: CEFEPIME 1,000 MG in DEXTROSE 5% 50 ML IV SCH ×2 (09:05→20:09)
[2017-04-20] MEDS: PREZCOBIX PO SCH (09:05)
[2017-04-20] MEDS: SULFAMETH/TRIMETH 400/80MG 1 TAB PO SCH ×2 (09:05→20:08)
[2017-04-20] MEDS: PANTOPRAZOLE 40 MG TABEC PO SCH (09:05)
[2017-04-20] MEDS: LACTOBACILLUS RHAMNOSUS GG 1 EACH CAP PO SCH (09:05)
--- NOTE | 2017-04-20 09:15 | NUR ---
ADMINISTERED SCHEDULED MEDICATIONS. PATIENT WAS ABLE TO SWALLOW MEDICATIONS; HOWEVER, SHE VOMITTED AFTER MEDICATION ADMINISTRATION, EMESIS WAS CLEAR WHITE/YELLOW. PATIENT WAS GIVEN EMESIS BAG, ZOFRAN WAS GIVEN AT 0705. PATIENT IS NOW RESTING IN BED AND ALL NEEDS ARE MET AT THIS TIME. BED IN LOW POSITION WITH CALL LIGHT WITHIN REACH.
--- NOTE | 2017-04-20 11:25 | NUR ---
PATIENT IS SLEEPING AND SHOWS NO S/S OF ACUTE DISTRESS AT THIS TIME. BED IN LOW POSITION WITH CALL LIGHT WITHIN REACH.
[2017-04-20] MEDS: BUDESONIDE 0.5 MG/2 ML NEBU INH SCH ×2 (11:40→20:15)
[2017-04-20] MEDS ORDERED: BUDESONIDE 0.5 MG/2 ML NEBU INH SCH (12:00)
--- NOTE | 2017-04-20 12:05 | NUR ---
PT NOTE CHART REVIEWED AND CLEARED FOR PT PER RN; ATTEMPTED 2X (1000, 1200) TO SEE Pt FOR PT TX BUT Pt REFUSED C/O HEADACHE 11/16, SAYING THAT SHE CANNOT PARTICIPATE WITH PT TODAY. RN NOTIFIED. PVE(2)
--- NOTE | 2017-04-20 12:35 | NUR ---
PT REFUSED TX, SAYS SHE STILL FEELS NAUSEATED. PT STATES THAT BREATHING FEELS OK, SAT95% ON RA, HR76. NO RESPIRATORY DISTRESS NOTED AT THIS TIME
--- NOTE | 2017-04-20 13:25 | NUR ---
PATIENT C/O NAUSEA AND VOMITING. PATIENT WAS ALSO C/O PAIN HOWEVER PAIN MEDICATION IS ONLY PO. WILL NOTIFY DR IF OKAY FOR OTHER PAIN MEDICATION ROUTE.
--- NOTE | 2017-04-20 13:43 | NUR ---
DR PIÑA NOTIFIED FOR RECOMMENDATION FOR IV PAIN MEDICATIONS. TO PLACE ORDERS.
[2017-04-20] MEDS: CHLORHEXADINE GLUC 2% CLOTH TP SCH (13:47)
[2017-04-20 14:15] VITALS: BP 92/61
--- NOTE | 2017-04-20 14:15 | NUR ---
PATIENT STATED IV SITE WAS BOTHERING HER AND WOULD LIKE A NEW IV SITE. IV ON THE RT WRIST WAS DISCONTINUED WITH CANNULA INTACT. NEW IV SUCCESSFULLY ATTEMPTED ON THE RIGHT FOREARM IVF'S INFUSING WELL.
[2017-04-20] MEDS: NACL 0.9% 1,000 ML IV SCH ×2 (14:18→23:42)
[2017-04-20] MEDS: MORPHINE SULFATE 2 MG/ML SYR IVP PRN ×2 (14:32→22:24)
--- NOTE | 2017-04-20 14:36 | NUR ---
PATIENT C/O 10/10 GENERALIZED PAIN, PATIENT WAS GIVEN MORPHINE 1 MG IVP, WILL REASSESS PAIN IN 30 MIN. ALL NEEDS MET AT THIS TIME. WILL CONTINUE TO MONITOR.
--- NOTE | 2017-04-20 15:05 | NUR ---
PATIENT STATES 2/10 GENERALIZED PAIN. PATIENT SHOWS NO S/S OF ACUTE DISTRESS ON ROOM AIR AT THIS TIME.
[2017-04-20 16:00] VITALS: BP 88/52
--- NOTE | 2017-04-20 16:30 | NUR ---
PATIENT HAS VISITOR AT BEDSIDE, PATIENT STATES TOLERABLE PAIN AT THIS TIME. ALL NEEDS MET, BED IN LOW POSITION WITH CALL LIGHT WITHIN REACH.
[2017-04-20] MEDS: PROMETHAZINE 25 MG/ML VIAL IVP PRN (18:20)
--- NOTE | 2017-04-20 18:34 | NUR ---
PATIENT C/O NAUSEA AND WAS GIVEN PHENERGAN 25 MG IVP, PATIENT HAS FAMILY AT BEDSIDE ALL NEEDS MET AT THIS TIME.
--- NOTE | 2017-04-20 19:15 | NUR ---
GAVE PATIENT REPORT AT BEDSIDE TO NIGHT NURSE. PATIENT ENDORSED IN STABLE CONDITION.
--- NOTE | 2017-04-20 19:30 | NUR ---
RECEIVED REPORT FROM AM NURSE. PT RESTING IN BED, AOX4, AMBULATORY WITH ASSIST, ABLE TO VERBALIZE NEEDS. PT HAS INTERMITTENT NONPRODUCTIVE COUGHS, WILL MEDICATE. PT C/O CHEST PAIN WHEN COUGHING, WILL ADMINISTER PAIN MED WHEN DUE. PT DENIES N/V AT THIS TIME, PT ALREADY MEDICATED BY AM NURSE. PT HAS HEATING PAD TO L SHOULDER. IV ACCESS ASYMPTOMATIC, PATENT AND INTACT. IVF INFUSING WELL. DISCUSSED AND REVIEWED PLAN OF CARE WITH PT, PT STATED "OK" ALL NEEDS MET. SAFETY MEASURES ENSURED. CALL LIGHT WITHIN REACH.
[2017-04-20 20:00] VITALS: BP 101/63
--- NOTE | 2017-04-20 20:10 | NUR ---
PT HAVING INTERMITTENT NONPRODUCTIVE COUGH, ADMINISTERED ROBITUSSIN PO PRN ORDERED. ADMINISTERED REMAINING DUE MEDS WITH EDUCATION. PT VERBALIZED UNDERSTANDING, TOLERATED MEDS WELL. ALL NEEDS MET. SAFETY MEASURES ENSURED. CALL LIGHT WITHIN REACH.
[2017-04-20] MEDS ORDERED: LEVOFLOXACIN 250 MG/D5 PREMIX 50 ML IV ONE (21:21)
[2017-04-20] MEDS ORDERED: LEVOFLOXACIN 500 MG/D5W PREMIX 100 ML IV ONE (21:22)
[2017-04-20] MEDS: LEVOFLOXACIN 750 MG/D5W PREMIX 150 ML IV SCH (22:14)
--- NOTE | 2017-04-20 22:24 | NUR ---
PT C/O PAIN. SEE PAIN ASSESSMENT. ADMINISTERED MORPHINE 1MG IVP PRN ORDERED WITH EDUCATION. UNABLE TO OBTAIN LEVAQUIN 750MG IVPB IN D5W 150ML PREMIX FROM [facility], RECEIVED LEVAQUIN 250MG IN 50ML D5W PREMIX IVPB AND LEVAQUIN 500MG IN 100ML D5W PREMIX IVPB, ADMINISTERED LEVAQUIN 250MG IVPB AT THIS TIME, WILL ADMINISTER LEVAQUIN 500MG IVPB SUBSEQUENTLY. ALL NEEDS MET. SAFETY MEASURES ENSURED. CALL LIGHT WITHIN REACH.
[2017-04-21] VITALS: BP 91/52
--- NOTE | 2017-04-21 00:15 | NUR ---
PT SLEEPING COMFORTABLY, NO S/S OF ACUTE DISTRESS. O2 NC FOUND AT BEDSIDE. SPO2 91% ON ROOM AIR, PT PLACED BACK ON O2 2L NC, SPO2 95%, RR 18 EVEN AND UNLABORED. ALL NEEDS MET. IVF INFUSING WELL. SAFETY MEASURES ENSURED. CALL LIGHT WITHIN REACH.
--- NOTE | 2017-04-21 04:33 | NUR ---
PT SLEEPING COMFORTABLY, O2 2L NC ENSURED, RR 20 EVEN AND UNLABORED. ALL NEEDS MET. IVF INFUSING WELL. SAFETY MEASURES ENSURED. CALL LIGHT WITHIN REACH.
[2017-04-21] MEDS: BENZOCAINE/MENTHOL 1 LOZ MM PRN (05:00)
--- NOTE | 2017-04-21 05:01 | NUR ---
PT C/O SORE THROAT, ADMINISTERED CEPACOL ORDERED WITH EDUCATION. PT VERBALIZED UNDERSTANDING. PT DENIES PAIN OR N/V. ALL NEEDS MET. SAFETY MEASURES ENSURED. CALL LIGHT WITHIN REACH.
[2017-04-21] MEDS: ALBUTEROL SULFATE/IPRATROPIU 3 ML SOL IH SCH ×3 (07:00→19:00)
--- NOTE | 2017-04-21 07:05 | NUR ---
ENDORSED PLAN OF CARE TO AM NURSE. CONDITION STABLE.
--- NOTE | 2017-04-21 07:10 | NUR ---
RECEIVED PATIENT REPORT AT BEDSIDE FROM NIGHT NURSE. PATIENT IS AAOX3 AND SHOWS NO S/S OF ACUTE DISTRESS ON ROOM AIR. PATIENT SKIN IS INTACT. IV NOTED ON THE RIGHT FA WITH IVF'S INFUSING WELL WITH NO SIGNS OF INFILTRATION. PATIENT STATES PAIN OF 7/10. ON MEDSURG. FALL RISK AND NEUTROPENIC PRECAUTIONS ARE IN PLACE. BED IS IN LOW POSITION WITH CALL LIGHT WITHIN REACH. PATIENT WAS EXPLAINED POC FOR TODAY AND VERBALIZED UNDERSTANDING.
--- NOTE | 2017-04-21 07:10 | NUR ---
RECEIVED PATIENT REPORT AT BEDSIDE FROM NIGHT NURSE. PATIENT IS AAOX4 AND SHOWS NO S/S OF ACUTE DISTRESS ON ROOM AIR. PATIENT SKIN IS INTACT. IV NOTED ON THE RIGHT HAND WITH IVF'S INFUSING WELL WITH NO SIGNS OF INFILTRATION. PATIENT DENIES PAIN AND NAUSEA. PATIENT WAS EXPLAINED POC AND VERBALIZED UNDERSTANDING. BED IS IN LOW POSITION WITH CALL LIGHT WITHIN REACH. Addendum: 04/21/17 at 1033 by Savannah Hernandez RN WRONG PATIENT
[2017-04-21] MEDS: BUDESONIDE 0.5 MG/2 ML NEBU INH SCH ×2 (07:30→19:30)
[2017-04-21 07:42] LABS: HEMATOCRIT 32.3 % (36-48); HEMOGLOBIN 10.4 g/dL (12.0-16.0); MEAN CORPUSCULAR HEMOGLOBIN 26 pg (27-31); MEAN CORPUSCULAR HGB CONC 32 g/dL (33-37); MEAN CORPUSCULAR VOLUME 81 fL (80-94); PLATELET COUNT (AUTO) 164 K/uL (140-450); RED BLOOD CELL COUNT(AUTO) 3.99 MIL/uL (4.20-5.40); RED CELL DISTRIBUTION WIDTH 12.9 % (11.6-13.7); WHITE BLOOD COUNT (AUTO) 2.4 K/uL (4.8-10.8)
--- NOTE | 2017-04-21 07:43 | NUR ---
PT REFUSED HHN TX. SHE SAID SHE WANTS TO THROW UP. WILL CONTINUE TO MONITOR.
[2017-04-21 07:49] VITALS: BP 96/54
[2017-04-21 08:03] LABS: CARBON DIOXIDE 29.8 mmol/L (21-32)
[2017-04-21 08:22] LABS: MAGNESIUM 1.6 mg/dL (1.8-2.4); PHOSPHORUS 3.3 mg/dL (2.5-4.9)
[2017-04-21 08:26] LABS: ANION GAP 10.3 (8-16); CREATININE 0.8 mg/dL (0.6-1.3); POTASSIUM 4.1 mmol/L (3.5-5.1)
[2017-04-21] MEDS: MORPHINE SULFATE 2 MG/ML SYR IVP PRN ×2 (08:27→17:20)
[2017-04-21] MEDS: DESCOVY 200-25MG TAB PO SCH (08:28)
[2017-04-21] MEDS: PREZCOBIX PO SCH (08:28)
[2017-04-21] MEDS: SULFAMETH/TRIMETH 400/80MG 1 TAB PO SCH (08:28)
[2017-04-21] MEDS: LACTOBACILLUS RHAMNOSUS GG 1 EACH CAP PO SCH (08:29)
[2017-04-21] MEDS: ONDANSETRON 4 MG/2 ML VIAL IM/IVP PRN (08:29)
[2017-04-21] MEDS: PANTOPRAZOLE 40 MG TABEC PO SCH (08:29)
[2017-04-21] MEDS: CEFEPIME 1,000 MG in DEXTROSE 5% 50 ML IV SCH (08:30)
[2017-04-21] MEDS: NACL 0.9% 1,000 ML IV SCH ×2 (08:31→19:25)
--- NOTE | 2017-04-21 08:38 | NUR ---
ADMINISTERED SCHEDULED MEDICATIONS AND MEDS FOR NAUSEA AND ABD PAIN OF 7/10 WILL REASSESS IN 30 MIN. PATIENT SHOWS NO S/S OF ACUTE DISTRESS ON ROOM AIR. BED IN LOW POSITION WITH CALL LIGHT WITHIN REACH.
[2017-04-21] MEDS ORDERED: SULFAMETH/TRIMETH 400/80MG 1 TAB PO SCH ×2 (09:00→21:00)
[2017-04-21] MEDS ORDERED: CEFEPIME 1,000 MG in DEXTROSE 5% 50 ML IV SCH ×2 (09:00→21:00)
--- NOTE | 2017-04-21 09:00 | NUR ---
PATIENT STATED 6/10 TOLERABLE PLEURITIC CHEST PAIN. BED IS IN LOW POSITION, CALL LIGHT WITHIN REACH, ALL NEEDS MET AT THIS TIME.
[2017-04-21 09:51] LABS: EOSINOPHILS % (MANUAL) 2 % (0-4); LYMPHOCYTES % (MANUAL) 40 % (20-46); MONOCYTES % (MANUAL) 7 % (5-12)
--- NOTE | 2017-04-21 10:00 | NUR ---
ASSISTED PATIENT TO THE RESTROOM, PATIENT AMB WITH STEADY GAIT, VOIDED URINE, AND IS NOW IN BED RESTING. BED IN LOW POSITION WITH CALL LIGHT WITHIN REACH.
--- NOTE | 2017-04-21 11:30 | NUR ---
PATIENT IS SLEEPING AND SHOWS NO S/S OF ACUTE DISTRESS, PATIENT ON ROOM AIR O2 SAT IS 90-92%, ON O2 @ 2L VIA NC O2 SAT IS 100%. PATIENT ENCOURAGED TO DO DEEP BREATHING EXERCISES. PATIENT STATES NO PAIN AND DOES NOT WANT COUGH MEDICINE AT THIS TIME. DENIES N/V. BED IN LOW POSITION WITH CALL LIGHT WITHIN REACH.
--- NOTE | 2017-04-21 11:36 | NUR ---
HHN TX NOT GIVEN. PT WANTS TO SLEEP.
--- NOTE | 2017-04-21 13:05 | NUR ---
GAVE PATIENT REPORT TO NICOLETTE MORALES. PATIENT ENDORSED IN STABLE CONDITION. PATIENT DENIES PAIN, N/V, AND DOES NOT WANT COUGH MEDICINE. PATIENT'S NEEDS MET AT THIS TIME. BED IN LOW POSITION WITH CALL LIGHT WITHIN REACH.
--- NOTE | 2017-04-21 13:06 | NUR ---
RECEIVED REPORT FROM CARMEN ELI FOR CONTINUITY OF CARE. PATIENT IN STABLE CONDITION. WILL CONTINUE TO MONITOR.
[2017-04-21] MEDS: CHLORHEXADINE GLUC 2% CLOTH TP SCH (13:53)
--- NOTE | 2017-04-21 14:13 | NUR ---
04/21/17 RD FOLLOW UP COMPLETED REFER TO NUTRITION PROGRESS NOTE UNDER CARE ACTIVITY FOR ESTIMATED NEEDS. RD RECOMMENDATIONS: 1. CONTINUE CURRENT DIET TOLERATED 2. APPRECIATE FOOD PREFERENCES, RESEARCH CHEMICAL ENGINEER ADDED VANILLA HS BID TO MEALS. 3. PLEASE ADD A BOWEL REGIMEN (NO BM X 5 - 6 DAYS PER PT). *DISCUSSED WITH RN. -NOTED CONTINUES WITH NAUSEA/VOMITING, HOWEVER PARENTERAL NUTRITION IS NOT IDEAL FOR PT AT THIS TIME GIVEN NEUTROPENIA, LOW WBC, AND PO INTAKES SHOULD IMPROVE ONCE PT HAS A BM. 4. PLEASE ADD A MVI FOR POOR PO INTAKES. 5. CONTINUE TO CHECK AND REPLETE LYTES PRN. 6. RD TO FOLLOW-UP 2-3 DAYS, HIGH RISK. BETHANY BACK RD, CNSC
--- NOTE | 2017-04-21 14:30 | NUR ---
FAXED [facility] MEDICAL RECORDS FOR PATIENT'S RECORD REGARDING LUNG CANCER AND HIV TREATMENT PER DR. GRECO REQUESTS. [facility] MEDICAL RECORDS OPEN FROM SUN-SUN, THUS RECORDS WILL PROBABLY BE FAXED ON SUNDAY. WILL CONTINUE TO MONITOR.
--- NOTE | 2017-04-21 15:25 | NUR ---
PATIENT SLEEPING IN BED, AROUSABLE BY VOICE. NO DISTRESS NOTED. DENIES ANY PAIN. STOOL SOFTENER GIVEN PATIENT HAS BEEN CONSTIPATED X 5 DAYS. HOWEVER, PATIENT HAS BEEN HAVING A POOR APPETITE. SAFETY MEASURES IN PLACE, CALL LIGHT WITHIN REACH. WILL CONTINUE TO MONITOR.
[2017-04-21 16:00] VITALS: BP 98/68
[2017-04-21] MEDS ORDERED: MAGNESIUM OXIDE 400 MG TAB PO SCH (16:25)
--- NOTE | 2017-04-21 17:24 | NUR ---
PATIENT LYING IN BED. COMPLAINTS OF 8/10 PAIN. MEDICATED WITH MORPHINE PER ORDERS. NO DISTRESS NOTED. OTHER SCHEDULED MEDICATIONS DUE GIVEN. SAFETY MEASURES IN PLACE, CALL LIGHT WITHIN REACH, NEUTROPENIC PRECAUTIONS IN PLACE. WILL CONTINUE TO MONITOR.
--- NOTE | 2017-04-21 18:20 | NUR ---
PATIENT SITTING IN BED WATCHING TV. NO DISTRESS NOTED. DENIES ANY PAIN. CONDITION UNCHANGED. WILL CONTINUE TO MONITOR.
--- NOTE | 2017-04-21 19:20 | NUR ---
GAVE REPORT TO STREETS AND BUILDINGS DECORATOR NURSE FOR CONTINUITY OF CARE. PATIENT IN STABLE CONDITION.
--- NOTE | 2017-04-21 19:22 | NUR ---
RECEIVED REPORT FROM DAY SHIFT NURSE. AAOX4. NO DISTRESS NOTED. ON O2 AT 2L/MIN VIA NC. IV TO RIGHT FA #22G WITH NS AT 100 ML/HR. NO C/O PAIN. DISCUSSED PLAN OF CARE. PT VERBALIZED UNDERSTANDING. CALL LIGHT WITHIN REACH.
--- NOTE | 2017-04-21 21:15 | NUR ---
PT SLEEPING BUT WAKES EASILY. NO S/S OF DISTRESS. CALL LIGHT WITHIN REACH.
[2017-04-21] MEDS: LEVOFLOXACIN 750 MG/D5W PREMIX 150 ML IV SCH (22:41)
--- NOTE | 2017-04-21 23:30 | NUR ---
DR. HILLIARD CAME IN TO SEE PT, ORDERED TO TRANSFER PT TO NEGATIVE PRESSURE ROOM. ORDER CARRIED OUT.
--- NOTE | 2017-04-21 23:35 | NUR ---
PT TRANSFERRED TO NEGATIVE PRESSURE ROOM FOR POSSIBLE PNEUMOCYSTIS CARINII PNA.
[2017-04-22] VITALS: BP 106/68
--- NOTE | 2017-04-22 00:03 | NUR ---
CALLED DR. SERRANO TO CLARIFY ORDER OF BACTRIM DS 800/160 MG DUE AT 03/22 0000. BACTRIM 400/80 MG 2 TABS WAS GIVEN AT 04/[address] SERRANO STATED HE WILL FIX THE ORDER.
--- NOTE | 2017-04-22 02:05 | NUR ---
PT RESTING IN BED WITH EYES CLOSED. AROUSES EASILY. NO S/S OF PAIN OR DISCOMFORT. CALL LIGHT WITHIN REACH.
[2017-04-22] MEDS: SULFAMETH/TRIMETH DS 800/160MG 1 TAB PO SCH ×4 (03:38→18:18)
--- NOTE | 2017-04-22 03:40 | NUR ---
DR. SERRANO ORDERED TO GIVE BACTRIM DS 800/160 MG. ORDER CARRIED OUT.
[2017-04-22] MEDS: MORPHINE SULFATE 2 MG/ML SYR IVP PRN ×2 (03:53→21:44)
[2017-04-22] MEDS: NACL 0.9% 1,000 ML IV SCH ×2 (05:25→15:25)
--- NOTE | 2017-04-22 05:51 | NUR ---
DR. SERRANO ORDERED TO HOLD BACTRIM DS 800/160MG FOR 0600. LAST DOSE OF BACTRIM DS GIVEN AT 0338.
--- NOTE | 2017-04-22 07:10 | NUR ---
ENDORSED PT TO DAY SHIFT NURSE. PT IN STABLE CONDITION.
--- NOTE | 2017-04-22 07:11 | NUR ---
RECEIVED REPORT FROM DNA SEQUENCING ASSOCIATE NURSE TARIK AT BEDSIDE FOR CONTINUITY OF CARE. PT IS AWAKE AND ORIENTED. INTRODUCED SELF AND UPDATED BOARD. PT IN STABLE CONDITION.
[2017-04-22 07:37] LABS: HEMATOCRIT 31.2 % (36-48); HEMOGLOBIN 10.5 g/dL (12.0-16.0); MEAN CORPUSCULAR HEMOGLOBIN 27 pg (27-31); MEAN CORPUSCULAR HGB CONC 34 g/dL (33-37); MEAN CORPUSCULAR VOLUME 81 fL (80-94); PLATELET COUNT (AUTO) 165 K/uL (140-450); RED BLOOD CELL COUNT(AUTO) 3.88 MIL/uL (4.20-5.40); RED CELL DISTRIBUTION WIDTH 13.1 % (11.6-13.7)
[2017-04-22 07:46] LABS: ANION GAP 10.1 (8-16); CREATININE 0.7 mg/dL (0.6-1.3); POTASSIUM 4.1 mmol/L (3.5-5.1)
[2017-04-22 07:59] LABS: MAGNESIUM 1.7 mg/dL (1.8-2.4); PHOSPHORUS 2.4 mg/dL (2.5-4.9)
[2017-04-22 08:00] VITALS: BP 110/71
[2017-04-22 08:14] LABS: EOSINOPHILS % (MANUAL) 2 % (0-4); LYMPHOCYTES % (MANUAL) 26 % (20-46); MONOCYTES % (MANUAL) 7 % (5-12)
[2017-04-22] MEDS: BUDESONIDE 0.5 MG/2 ML NEBU INH SCH (08:58)
[2017-04-22] MEDS: ALBUTEROL SULFATE/IPRATROPIU 3 ML SOL IH SCH ×3 (08:58→19:00)
[2017-04-22] MEDS: MAGNESIUM OXIDE 400 MG TAB PO SCH (09:45)
[2017-04-22] MEDS: DESCOVY 200-25MG TAB PO SCH (09:45)
[2017-04-22] MEDS: LACTOBACILLUS RHAMNOSUS GG 1 EACH CAP PO SCH (09:45)
[2017-04-22] MEDS: PREZCOBIX PO SCH (09:46)
[2017-04-22] MEDS: PANTOPRAZOLE 40 MG TABEC PO SCH (09:46)
[2017-04-22] MEDS: OSELTAMIVIR PHOSPHATE 75 MG CAP PO SCH ×2 (09:47→21:13)
--- NOTE | 2017-04-22 12:39 | NUR ---
AWAKE AND ALERT TOLERATED HYPERTONIC THERAPY VIA HHN WELL WITHOUT ADVERSE REACTIONS NOTED EDUCATION TO PATIENT WITH ACKNOWLEDGEMENT, PATIENT "OK", ON SPUTUM COLLECTION SPECIMEN CUP PLACED ON PATIENT BED TABLE
--- NOTE | 2017-04-22 13:00 | NUR ---
CHECKED ON PT IN ROOM. SLEEPING WITH VISIBLE RESPIRATIONS. NO SIGNS OF DISTRESS. ASKED IF PT NEEDED ANYTHING RIGHT NOW. PT STATED "NO." DENIES CHEST PAIN. NO SOB NOTED. BED IN LOW POSITION, WHEELS LOCKED, CALL LIGHT WITHIN REACH. WILL CONTINUE TO MONITOR.
--- NOTE | 2017-04-22 14:48 | NUR ---
PATIENT STATES THAT SHE SPIT SPUTUM INTO BLUE NAUSEA BAG LAB TECHNOLOGIST TO ATTEMPT NTS
--- NOTE | 2017-04-22 14:50 | NUR ---
MANAGER GAME UNABLE TO PROCEED WITH HHN THERAPY AND NTS FOR SPUTUM SAMPLE DUE TO ER PROCEDURE MANAGER GAME TO ATTEMPT AT A LATER TIME Addendum: 04/22/17 at 1459 by Guanaco Soliman RT NO SOB NOTED
--- NOTE | 2017-04-22 15:45 | NUR ---
EXPLAINED NTS PROCEDURE TO PATIENT USING STERILE TECHNIQUE APPLIED LUBRICANT TO END OF A 14FR SUCTION CATHETER INTO LEFT NASAL REGION PATIENT REFUSED Addendum: 04/22/17 at 1757 by Guanaco Soliman RT CRYSTAL/RN IN ROOM AWARE Addendum: 04/22/17 at 1758 by Guanaco Soliman RT SPECIMEN CUP REMAINS ON PATIENT TABLE PROVIDED SECONDARY EDUCATION TO SPUTUM COLLECTION
[2017-04-22 16:00] VITALS: BP 98/60
--- NOTE | 2017-04-22 18:00 | NUR ---
PT COMPLAINED OF PAIN TO IV ON RIGHT FA 22G. D/C IV TO RIGHT FA 22G. IV CATHETER TIP INTACT. APPLIED DRESSING AND PRESSURE TO SITE NO BLEEDING NOTED. STARTED IV TO LEFT FA 24G. PT TOLERATED WELL. IV OF NS INFUSING AT 100ML/HR.
--- NOTE | 2017-04-22 19:05 | NUR ---
ENDORSED PT TO SURFACE MOUNT TECHNOLOGY OPERATOR NURSE MAGDA AT BEDSIDE FOR CONTINUITY OF CARE. PT IN STABLE CONDITION.
--- NOTE | 2017-04-22 19:06 | NUR ---
RECEIVED BEDSIDE REPORT FROM DAY SHIFT NURSE JUNE RN, PT STABLE, NO DISTRESS NOTED, EATING DINNER, PT REPORTED HAVING NO PAIN, IV TO L FA 24 G RUNNING NS @ 100ML/HR, INFUSING WELL, INITIAL ASSESSMENT DONE, ALL SAFETY PRECAUTION MET, CALL LIGHT WITHIN REACH, WILL CONTINUE TO MONITOR.
--- NOTE | 2017-04-22 20:59 | NUR ---
PT HAVE A FREIND IN HER ROOM, AND SHE REFUSED ALL THE HHN TX, I GAVE HER THE PLASTIC CUP FOR THE SPUTUM AND INSTRUCT HER
--- NOTE | 2017-04-22 21:44 | NUR ---
PT C/O OF GENERALIZED PAIN 11/16, MEDICATION GIVEN, PT TOLERATED WELL, NO DISTRESS NOTED, CALL LIGHT WITHIN REACH, WILL CONTINUE TO MONITOR.
[2017-04-23] VITALS: BP 104/61
[2017-04-23] MEDS: SULFAMETH/TRIMETH DS 800/160MG 1 TAB PO SCH ×5 (00:25→23:56)
[2017-04-23] MEDS: LEVOFLOXACIN 750 MG/D5W PREMIX 150 ML IV SCH ×2 (00:25→23:36)
[2017-04-23] MEDS: NACL 0.9% 1,000 ML IV SCH ×3 (01:25→21:25)
[2017-04-23] MEDS: ONDANSETRON 4 MG/2 ML VIAL IM/IVP PRN ×2 (02:57→23:36)
--- NOTE | 2017-04-23 02:57 | NUR ---
PT C/O OF NAUSEA, MEDICATION GIVEN, PT TOLERATED WELL, NO DISTRESS NOTED, CALL LIGHT WITHIN REACH, WILL CONTINUE TO MONITOR.
--- NOTE | 2017-04-23 05:10 | NUR ---
CHECKED ON PT, PT STABLE, NO DISTRESS NOTED, CALL LIGHT WITHIN REACH, WILL CONTINUE TO MONITOR.
--- NOTE | 2017-04-23 07:20 | NUR ---
RECEIVED BEDSIDE REPORT FROM PLODDING OPERATOR NURSE. PT IS SLEEPING, EASILY AROUSED, ORIENTEDX4. PT STABLE, NO DISTRESS NOTED, DENIES PAIN AT THIS TIME. IV NOTED TO L FA 24 G RUNNING NS @ 100ML/HR, INFUSING WELL. INITIAL ASSESSMENT DONE, ALL SAFETY PRECAUTION MET, CALL LIGHT WITHIN REACH, WILL CONTINUE TO MONITOR.
--- NOTE | 2017-04-23 07:30 | NUR ---
GAVE BEDSIDE REPORT TO DAY SHIFT NURSE PEACE RN, ENDORSED PLAN OF CARE, PT STABLE, NO DISTRESS NOTED
[2017-04-23 07:44] LABS: HEMATOCRIT 31.2 % (36-48); HEMOGLOBIN 10.3 g/dL (12.0-16.0); MEAN CORPUSCULAR HEMOGLOBIN 27 pg (27-31); MEAN CORPUSCULAR HGB CONC 33 g/dL (33-37); MEAN CORPUSCULAR VOLUME 81 fL (80-94); PLATELET COUNT (AUTO) 184 K/uL (140-450); RED BLOOD CELL COUNT(AUTO) 3.83 MIL/uL (4.20-5.40); RED CELL DISTRIBUTION WIDTH 12.8 % (11.6-13.7); WHITE BLOOD COUNT (AUTO) 2.2 K/uL (4.8-10.8)
[2017-04-23 07:49] LABS: MAGNESIUM 1.8 mg/dL (1.8-2.4); PHOSPHORUS 2.7 mg/dL (2.5-4.9)
[2017-04-23 08:00] VITALS: BP 111/58
--- NOTE | 2017-04-23 08:00 | NUR ---
ASKED PT IF SHE URINATED OR NEEDS TO BE CLEANED. PT WEARS JEANS WHICH IS DRY. PT STATED SHE USES THE RESTROOM. TAUGHT PT TO USE CALL LIGHT IF SHE NEEDS TO USE RESTROOM.
[2017-04-23] MEDS: OSELTAMIVIR PHOSPHATE 75 MG CAP PO SCH ×2 (08:15→21:04)
[2017-04-23] MEDS: DESCOVY 200-25MG TAB PO SCH (08:16)
[2017-04-23] MEDS: MAGNESIUM OXIDE 400 MG TAB PO SCH (08:16)
[2017-04-23] MEDS: PANTOPRAZOLE 40 MG TABEC PO SCH (08:16)
[2017-04-23] MEDS: LACTOBACILLUS RHAMNOSUS GG 1 EACH CAP PO SCH (08:16)
[2017-04-23] MEDS: PREZCOBIX PO SCH (08:16)
[2017-04-23 08:22] LABS: ANION GAP 10.9 (8-16); CARBON DIOXIDE 27.8 mmol/L (21-32); CREATININE 0.7 mg/dL (0.6-1.3); POTASSIUM 3.7 mmol/L (3.5-5.1)
[2017-04-23 08:28] LABS: EOSINOPHILS % (MANUAL) 2 % (0-4); LYMPHOCYTES % (MANUAL) 37 % (20-46); MONOCYTES % (MANUAL) 11 % (5-12)
[2017-04-23] MEDS: PROMETHAZINE 25 MG/ML VIAL IVP PRN (08:36)
[2017-04-23] MEDS: BUDESONIDE 0.5 MG/2 ML NEBU INH SCH ×2 (08:54→20:25)
[2017-04-23] MEDS: ALBUTEROL SULFATE/IPRATROPIU 3 ML SOL IH SCH ×3 (08:54→20:25)
--- NOTE | 2017-04-23 10:00 | NUR ---
REPORTED TO DR DEE THAT PT HAS A ALLERGY WRIST BAND STATED HYDROCODONE. SUGGESTED TO JOSÉ MIGUEL GRIFFIN.
--- NOTE | 2017-04-23 10:20 | NUR ---
PT AMB WITH PHYSICAL THERAPIST IN THE ROOM. PT TOLERATED WELL.
[2017-04-23] MEDS: MORPHINE SULFATE 2 MG/ML SYR IVP PRN (12:11)
[2017-04-23 16:00] VITALS: BP 95/58
--- NOTE | 2017-04-23 16:00 | NUR ---
ASKED PT TO COUGH SO WE CAN GET SOME SPUTUM. PT DENIED ANY COUGH AT THIS TIME. WILL TRY AGAIN LATER.
--- NOTE | 2017-04-23 16:00 | NUR ---
DR DEE STATED PT HAD NORCO BEFORE, SHE DO NOT HAVE THAT ALLERGY.
--- NOTE | 2017-04-23 17:20 | NUR ---
ASKED PT IF SHE CAN COUGH SO WE CAN GET PHLEGM. PT DENIED COUGH. ASKED PT IF WE CAN PUT A TUBE THROUGH THE NOSE TO GET PHLEGM. PT REFUSED. WILL TRY AGAIN LATER.
--- NOTE | 2017-04-23 18:30 | NUR ---
SPUTUM OBTAINED FROM PT.
--- NOTE | 2017-04-23 19:31 | NUR ---
ENDORSED PT TO PAYROLL PROCESSOR RN, PT STABLE, NO DISTRESS NOTED
--- NOTE | 2017-04-23 19:40 | NUR ---
RECEIVED REPORT FROM AM NURSE. PT RESTING IN BED, AOX4, AMBULATORY, ABLE TO VERBALIZE NEEDS. SPO2 100% ON O2 2.5L NC, RR 16 EVEN AND UNLABORED. PT REPORTS INTERMITTENT PRODUCTIVE COUGH, PT INSTRUCTED TO COLLECT SPUTUM SAMPLE WHEN ABLE. PT C/O PAIN, PAIN TOLERABLE, PT'S BP IS 94/57 AT THIS TIME, UNABLE TO GIVE PAIN MEDICATION, HEATING PAD TO BACK OF NECK MAINTAINED, WILL MONITOR. IV ACCESS ASYMPTOMATIC, PATENT AND INTACT. IVF INFUSING WELL. DISCUSSED AND REVIEWED PLAN OF CARE WITH PT. PT STATED "OK" ALL NEEDS MET. SAFETY MEASURES ENSURED. CALL LIGHT WITHIN REACH.
[2017-04-23 20:00] VITALS: BP 94/57
--- NOTE | 2017-04-23 20:38 | NUR ---
UNABLE TO DO CPT. PT TO WEAK.
--- NOTE | 2017-04-23 21:05 | NUR ---
ADMINISTERED DUE MED TAMIFLU PO ORDERED WITH EDUCATION, PT STATED "OK." ALL NEEDS MET. IVF INFUSING WELL. SAFETY MEASURES ENSURED. CALL LIGHT WITHIN REACH.
[2017-04-23] MEDS: HYDROcodone/APAP 7.5/325 MG 1 TAB PO PRN (23:56)
[2017-04-24] VITALS: BP 100/60
--- NOTE | 2017-04-24 | NUR ---
PT C/O NAUSEA, ADMINISTERED ZOFRAN IVP PRN WITH EDUCATION. PT C/O GENERALIZED PAIN. SEE PAIN ASSESSMENT. PT DENIES ALLERGY OR ANY REACTION TO NORCO PO, ADMITS TO RECEIVING IT BEFORE. ADMINISTERED NORCO PO PRN WITH EDUCATION. ADMINISTERED REMAINING DUE MEDS WITH EDUCATION. PT VERBALIZED UNDERSTANDING. SPUTUM SAMPLE COLLECTED, WILL SEND TO LAB. ALL NEEDS MET. IVPB INFUSING WELL. SAFETY MEASURES ENSURED. CALL LIGHT WITHIN REACH.
--- NOTE | 2017-04-24 04:16 | NUR ---
PT RESTING COMFORTABLY IN BED, NO S/S OF ACUTE DISTRESS. O2 2.5L NC ENSURED. PT HUNGRY, PROVIDED SNACKS. ALL NEEDS MET. IVF INFUSING WELL. SAFETY MEASURES ENSURED. CALL LIGHT WITHIN REACH.
[2017-04-24] MEDS: SULFAMETH/TRIMETH DS 800/160MG 1 TAB PO SCH ×4 (05:24→23:56)
--- NOTE | 2017-04-24 07:15 | NUR ---
ENDORSED PLAN OF CARE TO AM NURSE. CONDITION STABLE.
--- NOTE | 2017-04-24 07:16 | NUR ---
RECEIVED REPORT FROM THE ECHO TECHNICIAN NURSE AT THE DOOR FOR CONTINUITY OF CARE. PT IS BEING R/O FOR TB. PT IS AWAKE GETTING HER BREATHING TX. R/T IS THERE. WILL ASSESS HER LATER WHEN I GO IN TO GET HER V/S. PT IS STABLE AT THIS TIME. WILL CONTINUE TO MONITOR PT.
[2017-04-24 07:28] LABS: HEMATOCRIT 30.9 % (36-48); HEMOGLOBIN 10.2 g/dL (12.0-16.0); MEAN CORPUSCULAR HEMOGLOBIN 26 pg (27-31); MEAN CORPUSCULAR HGB CONC 33 g/dL (33-37); MEAN CORPUSCULAR VOLUME 80 fL (80-94); PLATELET COUNT (AUTO) 229 K/uL (140-450); RED BLOOD CELL COUNT(AUTO) 3.86 MIL/uL (4.20-5.40); RED CELL DISTRIBUTION WIDTH 13.2 % (11.6-13.7)
[2017-04-24] MEDS: BUDESONIDE 0.5 MG/2 ML NEBU INH SCH ×2 (07:39→19:44)
[2017-04-24] MEDS: ALBUTEROL SULFATE/IPRATROPIU 3 ML SOL IH SCH ×3 (07:39→19:44)
[2017-04-24 08:00] VITALS: BP 102/59
[2017-04-24 09:01] LABS: ANION GAP 8.5 (8-16); CARBON DIOXIDE 30.5 mmol/L (21-32); CREATININE 0.8 mg/dL (0.6-1.3)
[2017-04-24 09:05] LABS: EOSINOPHILS % (MANUAL) 2 % (0-4); LYMPHOCYTES % (MANUAL) 36 % (20-46); MONOCYTES % (MANUAL) 16 % (5-12)
[2017-04-24] MEDS: NACL 0.9% 1,000 ML IV SCH (10:18)
[2017-04-24] MEDS: LACTOBACILLUS RHAMNOSUS GG 1 EACH CAP PO SCH (10:19)
[2017-04-24] MEDS: MAGNESIUM OXIDE 400 MG TAB PO SCH (10:19)
[2017-04-24] MEDS: OSELTAMIVIR PHOSPHATE 75 MG CAP PO SCH ×2 (10:19→20:17)
[2017-04-24] MEDS: PANTOPRAZOLE 40 MG TABEC PO SCH (10:20)
[2017-04-24] MEDS: DESCOVY 200-25MG TAB PO SCH (10:20)
[2017-04-24] MEDS: PREZCOBIX PO SCH (10:20)
--- NOTE | 2017-04-24 10:25 | NUR ---
ADMINISTERED MORNING MEDS. PT TOLERATED WELL. CHANGED IVF. NO COMPLAINTS AT THIS TIME WILL CONTINUE TO MONITOR PT.
--- NOTE | 2017-04-24 12:22 | NUR ---
ADMINISTERED AFTERNOON MED. PT IS IN STABLE CONDITION. NO SIGNS OF DISTRESS. NO COMPLAINTS. LUNCH AT SIDE TABLE. WILL CONTINUE TO MONITOR PT.
[2017-04-24] MEDS: ONDANSETRON 4 MG/2 ML VIAL IM/IVP PRN (14:09)
--- NOTE | 2017-04-24 14:15 | NUR ---
PT NAUSEATED WHEN TRYING TO GET UP W/ P/T. NO P/T TODAY. ADMINISTERED ZOFRAN. PT TOLERATED WELL. WILL CONTINUE TO MONITOR PT.
--- NOTE | 2017-04-24 14:43 | NUR ---
04/24/17 RD FOLLOW UP COMPLETED. PLEASE REFER TO NUTRITION PROGRESS NOTE UNDER CARE ACTIVITY FOR ESTIMATED NUTRITION NEEDS. 1.CONTINUE CURRENT DIET TOLERATED. 2.PT TO RECEIVE 6 SMALL MEALS AND HS BID. 3.RD TO FOLLOW-UP 2-3DAYS, HIGH RISK GHASSAN TELLES, RD
[2017-04-24 16:00] VITALS: BP 109/73
--- NOTE | 2017-04-24 16:10 | NUR ---
STUDENT NURSE AND INSTRUCTOR GAVE ABX. PT TOLERATED WELL. WILL CONTINUE TO MONITOR PT.
--- NOTE | 2017-04-24 19:00 | NUR ---
PT RESTING COMFORTABLY. NO SIGNS OF DISTRESS. BARELY TOUCHED DINNER TRAY. WILL CONTINUE TO MONITOR PT.
--- NOTE | 2017-04-24 19:10 | NUR ---
ENDORSED PT TO THE RN INTERVENTIONAL NURSE AT BEDSIDE FOR CONTINUITY OF CARE. PT IS IN STABLE CONDITION.
--- NOTE | 2017-04-24 19:25 | NUR ---
RECEIVED REPORT FROM AM NURSE. PT RESTING IN BED, AOX4, AMBULATORY, ABLE TO VERBALIZE NEEDS. PT DENIES SOB OR S/S OF ACUTE DISTRESS. SPO2 95% ON ROOM AIR, RR 20 EVEN AND UNLABORED. PT REPORTS INTERMITTENT NONPRODUCTIVE COUGH. PT C/O GENERALIZED PAIN, HEATING PAD TO BACK OF NECK MAINTAINED, WILL MEDICATE ORDERED. IV ACCESS ASYMPTOMATIC, PATENT AND INTACT. IVF INFUSING WELL. DISCUSSED AND REVIEWED PLAN OF CARE WITH PT. PT STATED "OK" ALL NEEDS MET. SAFETY MEASURES ENSURED. CALL LIGHT WITHIN REACH.
[2017-04-24 20:00] VITALS: BP 107/66
[2017-04-24] MEDS: HYDROcodone/APAP 7.5/325 MG 1 TAB PO PRN (20:22)
--- NOTE | 2017-04-24 20:24 | NUR ---
PT C/O GENERALIZED PAIN, SEE PAIN ASSESSMENT, ADMINISTERED NORCO PO PRN ORDERED WITH EDUCATION. ADMINISTERED REMAINING DUE MEDS WITH EDUCATION. PT STATED OK. ALL NEEDS MET. IVF INFUSING WELL. SAFETY MEASURES ENSURED. CALL LIGHT WITHIN REACH.
[2017-04-24] MEDS: LEVOFLOXACIN 750 MG/D5W PREMIX 150 ML IV SCH (23:58)
[2017-04-25] VITALS: BP 99/67
--- NOTE | 2017-04-25 | NUR ---
PT RESTING COMFORTABLY IN BED, SPO2 93% ON ROOM AIR, RR 18 EVEN AND UNLABORED. ADMINISTERED DUE MEDS WITH EDUCATION. PT STATED OK, TOLERATED MEDS WELL. ALL NEEDS MET. IVPB INFUSING WELL. SAFETY MEASURES ENSURED. CALL LIGHT WITHIN REACH.
[2017-04-25] MEDS: SULFAMETH/TRIMETH DS 800/160MG 1 TAB PO SCH ×4 (05:16→23:26)
--- NOTE | 2017-04-25 05:18 | NUR ---
PT SLEEPING COMFORTABLY, NO S/S OF ACUTE DISTRESS, ADMINISTERED DUE MED BACTRIM PO WITH EDUCATION. PT STATED OK, TOLERATED MED WELL. PT REMINDED TO COLLECT SPUTUM SAMPLES, PT VERBALIZED UNDERSTANDING. ALL NEEDS MET. IVF INFUSING WELL. SAFETY MEASURES ENSURED. CALL LIGHT WITHIN REACH.
--- NOTE | 2017-04-25 07:10 | NUR ---
ENDORSED PLAN OF CARE TO AM NURSE. CONDITION STABLE.
--- NOTE | 2017-04-25 07:11 | NUR ---
RECEIVED REPORT FROM THE MANTEL CRAFTSMAN NURSE AT THE DOOR LOOKING IN. PT IN NEG PRESSURE ROOM. STILL R/O TB, NEUTROPENIC PRECAUTIONS. PT SLEEPING. IV ON F FA 24G NS 20ML INFUSING. NO SIGNS OF DISTRESS. STEADY BREATHING. WILL CONTINUE TO MONITOR PT.
[2017-04-25 07:13] LABS: HEMATOCRIT 31.4 % (36-48); HEMOGLOBIN 10.5 g/dL (12.0-16.0); MEAN CORPUSCULAR HEMOGLOBIN 27 pg (27-31); MEAN CORPUSCULAR HGB CONC 34 g/dL (33-37); MEAN CORPUSCULAR VOLUME 80 fL (80-94); PLATELET COUNT (AUTO) 250 K/uL (140-450); RED BLOOD CELL COUNT(AUTO) 3.93 MIL/uL (4.20-5.40); RED CELL DISTRIBUTION WIDTH 13.1 % (11.6-13.7); WHITE BLOOD COUNT (AUTO) 2.6 K/uL (4.8-10.8)
[2017-04-25] MEDS: NACL 0.9% 1,000 ML IV SCH (07:25)
[2017-04-25 07:45] LABS: ANION GAP 10.6 (8-16); CARBON DIOXIDE 29.7 mmol/L (21-32); CREATININE 0.7 mg/dL (0.6-1.3); POTASSIUM 4.3 mmol/L (3.5-5.1)
--- NOTE | 2017-04-25 07:50 | NUR ---
PT STILL SLEEPING. UPDATED THE BOARD. STARTED V/S. VS WITHIN NORMAL RANGE. NO SIGNS OF DISTRESS. NO COMPLAINTS. BREAKFAST HERE. HASN'T BEEN TOUCHED. ADMINISTERED A NEW BAG OF NS. WILL CONTINUE TO MONITOR PT.
[2017-04-25 08:00] VITALS: BP 133/79
[2017-04-25 09:36] LABS: EOSINOPHILS % (MANUAL) 5 % (0-4); LYMPHOCYTES % (MANUAL) 21 % (20-46); MONOCYTES % (MANUAL) 20 % (5-12)
[2017-04-25] MEDS: MAGNESIUM OXIDE 400 MG TAB PO SCH (09:54)
[2017-04-25] MEDS: PREZCOBIX PO SCH (09:54)
[2017-04-25] MEDS: DESCOVY 200-25MG TAB PO SCH (09:54)
[2017-04-25] MEDS: PANTOPRAZOLE 40 MG TABEC PO SCH (09:55)
[2017-04-25] MEDS: LACTOBACILLUS RHAMNOSUS GG 1 EACH CAP PO SCH (09:55)
[2017-04-25] MEDS: OSELTAMIVIR PHOSPHATE 75 MG CAP PO SCH ×2 (09:55→20:32)
[2017-04-25] MEDS: ONDANSETRON 4 MG/2 ML VIAL IM/IVP PRN ×2 (10:01→17:50)
--- NOTE | 2017-04-25 10:06 | NUR ---
ADMINISTERED MORNING MEDS. INCLUDING ZOFRAN. PT NAUSEATED. PT TOLERATED WELL. ALL NEEDS MET. WILL CONTINUE TO MONITOR PT.
[2017-04-25] MEDS: ALBUTEROL SULFATE/IPRATROPIU 3 ML SOL IH SCH ×3 (10:51→19:00)
[2017-04-25] MEDS: BUDESONIDE 0.5 MG/2 ML NEBU INH SCH ×2 (10:51→19:30)
--- NOTE | 2017-04-25 10:52 | NUR ---
PT REFUSED TX PER NAUSEA. SAT93% WITHOUT ANY RESPIRATORY DISTRESS NOTED AT THIS TIME
--- NOTE | 2017-04-25 14:20 | NUR ---
P/T WORKING WITH PTKarolina
[2017-04-25] MEDS: MORPHINE SULFATE 2 MG/ML SYR IVP PRN (14:53)
[2017-04-25] MEDS: guaiFENesin 20 MG/ML UDC PO PRN (14:53)
--- NOTE | 2017-04-25 15:00 | NUR ---
ADMINISTERED PAIN MED AND ROBITUSSIN. PAIN LEVEL 8/10. PT TOLERATED WELL. WILL CONTINUE TO MONITOR PT.
[2017-04-25 16:00] VITALS: BP 100/59
--- NOTE | 2017-04-25 16:00 | NUR ---
PHYSICAL THERAPY CO-SIGN The Physical Therapy Progress Notes documented by Technical Support Agent have been reviewed. Reviewed/Co-Signed by: George Collins PT Documentation Done by: JARAD MONTELONGO PTA LIMITED OUT OF BED ACTIVITIES DUE TO PERSISTENT COUGHING. WILL PROGRESS ABLE. Addendum: 04/26/17 at 0845 by George Collins PT Amended: Links added.
--- NOTE | 2017-04-25 17:00 | NUR ---
PT RESTING COMFORTABLY. SIGNS OF DISTRESS. WILL CONTINUE TO MONITOR PT.
--- NOTE | 2017-04-25 19:18 | NUR ---
ENDORSED PT TO THE CLINICAL NUTRITIONIST NURSE AT BEDSIDE FOR CONTINUITY OF CARE. PT IS IN STABLE CONDITION.
--- NOTE | 2017-04-25 19:30 | NUR ---
RECEIVED REPORT FROM AM NURSE. PT RESTING IN BED, AOX4, AMBULATORY, ABLE TO VERBALIZE NEEDS. PT DENIES SOB OR S/S OF ACUTE DISTRESS. SPO2 94% ON ROOM AIR, RR 16 EVEN AND UNLABORED. PT REPORTS INTERMITTENT SLIGHTLY PRODUCTIVE COUGH, PT REMINDED TO COLLECT SPUTUM SPECIMEN WHEN ABLE. PT C/O GENERALIZED PAIN, HEATING PAD TO BACK OF NECK MAINTAINED, WILL MONITOR. IV ACCESS ASYMPTOMATIC, PATENT AND INTACT. IVF INFUSING WELL. DISCUSSED AND REVIEWED PLAN OF CARE WITH PT. PT STATED "OK" ALL NEEDS MET. SAFETY MEASURES ENSURED. CALL LIGHT WITHIN REACH.
[2017-04-25 20:00] VITALS: BP 100/60
--- NOTE | 2017-04-25 20:32 | NUR ---
ADMINISTERED DUE MED WITH EDUCATION. PT VERBALIZED UNDERSTANDING, TOLERATED MED WELL. ALL NEEDS MET. SAFETY MEASURES ENSURED. CALL LIGHT WITHIN REACH.
--- NOTE | 2017-04-25 22:15 | NUR ---
RECEIVED RESULTS OF QUANTIFERON TB GOLD FROM PAD MACHINE OFFBEARER, SPOKE WITH DR HILLIARD, SHOWED RESULTS, STATED RESULTS SHOW INDETERMINATE ABNORMAL, AND TO LEAVE RESULTS IN THE CHART. ALSO MADE DR RUIZ AWARE, WILL LEAVE RESULTS IN CHART.
[2017-04-25] MEDS: LEVOFLOXACIN 750 MG/D5W PREMIX 150 ML IV SCH (22:17)
[2017-04-25] MEDS: HYDROcodone/APAP 7.5/325 MG 1 TAB PO PRN (22:17)
--- NOTE | 2017-04-25 23:45 | NUR ---
ADMINISTERED DUE MED BACTRIM PO WITH EDUCATION. PT STATED OK, TOLERATED MED WELL. PT C/O SLIGHT PAIN ON IV SITE, IV INFILTRATED, WILL INSERT NEW IV.
[2017-04-26] VITALS: BP 98/57
[2017-04-26] MEDS: ONDANSETRON 4 MG/2 ML VIAL IM/IVP PRN (00:29)
--- NOTE | 2017-04-26 00:32 | NUR ---
INSERTED NEW IV 20G ON L WRIST, PATENT AND INTACT, PT TOLERATED WELL. PT C/O NAUSEA, ADMINISTERED ZOFRAN IVP PRN ORDERED WITH EDUCATION, PT VERBALIZED UNDERSTANDING. ALL NEEDS MET. SAFETY MEASURES ENSURED. CALL LIGHT WITHIN REACH.
[2017-04-26] MEDS ORDERED: ZOLPIDEM 5 MG TAB PO SCH (03:30)
--- NOTE | 2017-04-26 03:39 | NUR ---
PT C/O FEELING DIZZY, HEADACHE, FEELING HOT AND INSOMNIA. VITAL SIGNS STABLE, BP 119/75, HR 71, SPO2 100% ON O2 2L NC, RR 20 EVEN AND UNLABORED. DENIES SOB. MADE ROOM COLDER. PT REFUSED NORCO PO PRN FOR PAIN OR BREATHING TX. CALLED DR RUIZ, MADE MD AWARE. ORDERS RECEIVED FOR AMBIEN 5MG PO ONCE AT THIS TIME. ADMINISTERED AMBIEN 5MG PO ONCE WITH EDUCATION. PT VERBALIZED UNDERSTANDING. ALL NEEDS MET. SAFETY MEASURES ENSURED. CALL LIGHT WITHIN REACH.
[2017-04-26] MEDS: SULFAMETH/TRIMETH DS 800/160MG 1 TAB PO SCH ×4 (05:07→23:28)
--- NOTE | 2017-04-26 07:10 | NUR ---
ENDORSED PLAN OF CARE TO AM NURSE. CONDITION STABLE.
[2017-04-26 07:16] LABS: BASOPHILS # (AUTO) 0.1 K/uL (0.00-0.22); BASOPHILS % (AUTO) 1.6 % (0.0-2.0); EOSINOPHILS # (AUTO) 0.1 K/uL (0-0.4); EOSINOPHILS % (AUTO) 3.6 % (0.0-4.0); HEMATOCRIT 30.8 % (36-48); HEMOGLOBIN 10.4 g/dL (12.0-16.0); LYMPHOCYTES # (AUTO) 0.7 K/uL (2.5-16.5); LYMPHOCYTES % (AUTO) 19.8 % (20.5-51.1); MEAN CORPUSCULAR HEMOGLOBIN 27 pg (27-31); MEAN CORPUSCULAR HGB CONC 34 g/dL (33-37); MEAN CORPUSCULAR VOLUME 80 fL (80-94); MONOCYTES # (AUTO) 0.6 K/uL (0.8-1.0); MONOCYTES % (AUTO) 16.7 % (1.7-9.3); NEUTROPHILS # (AUTO) 1.8 K/uL (1.8-7.7); NEUTROPHILS % (AUTO) 58.3 % (42.2-75.2); PLATELET COUNT (AUTO) 275 K/uL (140-450); RED BLOOD CELL COUNT(AUTO) 3.86 MIL/uL (4.20-5.40); WHITE BLOOD COUNT (AUTO) 3.4 K/uL (4.8-10.8)
--- NOTE | 2017-04-26 07:20 | NUR ---
RECEIVED REPORT FROM PROCESS MANUFACTURING ENGINEER NURSE. PT RESTING IN BED, AOX4, AMBULATORY, ABLE TO VERBALIZE NEEDS. PT IS 2L O2 VIA NC, DENIES SOB OR S/S OF ACUTE DISTRESS. IV NOTED TO THE LEFT WRIST, PATENT AND INTACT, AND INFUSING WELL. INITIAL ASSESSMENT DONE. SAFETY MEASURES ENSURED. CALL LIGHT WITHIN REACH.
[2017-04-26 07:22] LABS: ANION GAP 11.7 (8-16); CARBON DIOXIDE 29.4 mmol/L (21-32); CREATININE 0.7 mg/dL (0.6-1.3); POTASSIUM 4.1 mmol/L (3.5-5.1)
[2017-04-26] MEDS: NACL 0.9% 1,000 ML IV SCH (07:25)
[2017-04-26 08:00] VITALS: BP 99/62
[2017-04-26] MEDS: BUDESONIDE 0.5 MG/2 ML NEBU INH SCH ×2 (08:09→19:30)
[2017-04-26] MEDS: ALBUTEROL SULFATE/IPRATROPIU 3 ML SOL IH SCH ×3 (08:09→19:00)
[2017-04-26] MEDS: LACTOBACILLUS RHAMNOSUS GG 1 EACH CAP PO SCH (09:49)
[2017-04-26] MEDS: MAGNESIUM OXIDE 400 MG TAB PO SCH (09:49)
[2017-04-26] MEDS: PANTOPRAZOLE 40 MG TABEC PO SCH (09:50)
[2017-04-26] MEDS: PREZCOBIX PO SCH (09:50)
[2017-04-26] MEDS: OSELTAMIVIR PHOSPHATE 75 MG CAP PO SCH ×2 (09:50→21:13)
[2017-04-26] MEDS: DESCOVY 200-25MG TAB PO SCH (09:51)
--- NOTE | 2017-04-26 12:40 | NUR ---
PT NOTES CHART REVIEWED AND CLEARED FOR PT BY RN. PATIENT IN SEMIFOWLER POSITION RESTING, PATIENT EXPRESSING GENERAL MALAISE AND NAUSEA, PATIENT HAS BE MEDICATED EARLIER, BUT DECLINES PARTICIPATION AT THIS TIME, ASKED IF POSSIBLE TO RETURN LATER. RN MADE AWARE, TRAY AND CALL LIGHT IN REACH. AIRBORNE PRECAUTION OBSERVED. ([id number]). RETURNED TO PATIENTS ROOM ABOUT 1 HR LATER, PATIENT CONTINUES TO BE IN SEMIFOWLER POSITION BUT NOW SLEEPING AND EASILY AROUSED. PATIENT CONTINUES TO EXPRESS NAUSEA AND FATIGUE, BUT NO PAIN AT THIS TIME. PATIENT MOTIVATED AND EDUCATED ON BENEFITS OF THERAPY TO ENCOURAGE ACTIVE PARTICIPATION, BUT DECLINES D/T NAUSEA SENSATION. ENCOURAGED CONTINUED HEP PARTICIPATION FROM PREVIOUS SESSIONS AND DEMONSTRATED FEW LE AROM IN ALL PLANES. TRAY AND CALL LIGHT IN REACH, AIRBORNE PRECAUTION OBSERVED. RN MADE AWARE, WILL FOLLOW UP PATIENT TOMORROW IF POSSIBLE. PVEx2 Addendum: 04/27/17 at 1408 by Breanna Lao PT PHYSICAL THERAPY CO-SIGN The Physical Therapy Progress Notes documented by Ordering Machine Operator have been reviewed. Reviewed/Co-Signed by: Breanna Lao,PT Documentation Done by: Mik Gomes PTA
--- NOTE | 2017-04-26 13:30 | NUR ---
MED ADMINISTERED ORDERED. PT EATING LUNCH, NO S/S OF ACUTE DISTRESS NOTED. O2 SAT AT 99% ON 2L O2 VIA NC.
--- NOTE | 2017-04-26 15:23 | NUR ---
MADE PT AWARE THAT SPUTUM SAMPLE IS NEEDED BECAUSE LAST SAMPLE WAS REJECTED. PT VERBALIZED UNDERSTANDING THAT PHLEGM ONLY NO SALIVA.
[2017-04-26 16:00] VITALS: BP 96/66
--- NOTE | 2017-04-26 16:30 | NUR ---
SPUTUM SAMPLE FOR SPUTUM CULTURE RECOLLECTED AND SENT TO THE LAB.
[2017-04-26] MEDS: PROMETHAZINE 25 MG/ML VIAL IVP PRN (16:56)
[2017-04-26] MEDS: BENZOCAINE/MENTHOL 1 LOZ MM PRN (16:59)
[2017-04-26] MEDS: MORPHINE SULFATE 2 MG/ML SYR IVP PRN (17:58)
--- NOTE | 2017-04-26 18:55 | NUR ---
ENCOURAGE PT TO EAT. PT REFUSED TO EAT DINNER AT THIS TIME. PT STATED MAYBE LATER.
--- NOTE | 2017-04-26 19:30 | NUR ---
BEDSIDE REPORT GIVEN TO OFFICE CLERK ASSISTANT NURSE. IVF INFUSING WELL. PT IN STABLE CONDITION.
--- NOTE | 2017-04-26 19:35 | NUR ---
RECEIVED REPORT FROM DAY SHIFT RN, PATIENT RESTING IN BED, NO S/S OF DISTRESS NOTED, RESPIRATION EVEN AND UNLABORED, ON O2 NC 2L, PATIENT DIDN'T EAT DINNER, BUT SHE SAID," LATER." IV PATENT AND INTACT, INFUSING NS AT 20ML/HR, CALL LIGHT WITHIN REACH, SAFETY MEASURE ENSURED, WILL CONTINUE TO MONITOR.
--- NOTE | 2017-04-26 19:45 | NUR ---
HHN TX NOT GIVEN. PT IS ASLEEP. NO SOB OR DISTRESS NOTED. WILL CONTINUE TO MONITOR.
[2017-04-26 20:00] VITALS: BP 104/66
--- NOTE | 2017-04-26 21:05 | NUR ---
DR. HILLIARD CAME AND EXAMINED THE PATIENT AT THE BEDSIDE. NO ORDER RECEIVED AT THIS TIME.
--- NOTE | 2017-04-26 21:36 | NUR ---
DUE MEDICATION GIVEN, PATIENT TOLERATED WELL. NO S/S OF DISTRESS NOTED, RESPIRATION EVEN AND UNLABORED, CALL LIGHT WITHIN REACH, SAFETY MEASURE ENSURED, WILL CONTINUE TO MONITOR.
[2017-04-26] MEDS: LEVOFLOXACIN 750 MG/D5W PREMIX 150 ML IV SCH (23:25)
[2017-04-26 23:55] VITALS: BP 107/69
--- NOTE | 2017-04-27 00:04 | NUR ---
PATIENT WAS SLEEPING, EASY TO AROUSE, DUE MEDICATION GIVEN, PATIENT TOLERATED WELL. NO S/S OF DISTRESS NOTED, RESPIRATION EVEN AND UNLABORED, CALL LIGHT WITHIN REACH, SAFETY MEASURE ENSURED, WILL CONTINUE TO MONITOR.
--- NOTE | 2017-04-27 02:38 | NUR ---
NO CHANGE IN CONDITION, PATIENT IS SLEEPING, RESPIRATION EVEN AND UNLABORED, CALL LIGHT WITHIN REACH, SAFETY MEASURE ENSURED, WILL CONTINUE TO MONITOR.
[2017-04-27] MEDS: SULFAMETH/TRIMETH DS 800/160MG 1 TAB PO SCH ×4 (05:32→23:23)
[2017-04-27] MEDS: ALBUTEROL SULFATE/IPRATROPIU 3 ML SOL IH SCH ×3 (07:06→20:02)
[2017-04-27] MEDS: BUDESONIDE 0.5 MG/2 ML NEBU INH SCH ×2 (07:06→20:03)
--- NOTE | 2017-04-27 07:10 | NUR ---
ENDORSED PLAN OF CARE TO DAY SHIFT RN, PATIENT RESTING IN BED IN STABLE CONDITION, RESPIRATION EVEN AND UNLABORED.
--- NOTE | 2017-04-27 07:18 | NUR ---
SATURATION 100% ON SUPLEMENTAL OXYGEN AT 2 LPM VIA NC POST HHN THERAPY PLACED PATIENT ON ROOM AIR NEAR EAST ARCHEOLOGY PROFESSOR TO MONITOR NEAR EAST ARCHEOLOGY PROFESSOR TO NOTIFY DAY/RN
--- NOTE | 2017-04-27 07:22 | NUR ---
RECEIVED PATIENT REPORT AT BEDSIDE FROM NIGHTSHIFT NURSE. PATIENT'S RESPIRATIONS ARE EVEN AND UNLABORED. PATIENT HAS NO SHORTNESS OF BREATH AT THIS TIME. PATIENT DOES NOT COMPLAIN OF ANY CHEST PAIN. PATIENT HAS A 24 G IV NOTED ON THE LEFT FOREARM. PATIENT'S SKIN IS IN TACT. BED LOWERED AND CALL LIGHT WITHIN REACH. INSTRUCTED PATIENT TO CALL IF SHE NEEDS ANYTHING. WILL CONTINUE TO MONITOR PATIENT.
[2017-04-27] MEDS: NACL 0.9% 1,000 ML IV SCH (07:25)
[2017-04-27 07:31] LABS: BASOPHILS # (AUTO) 0.1 K/uL (0.00-0.22); BASOPHILS % (AUTO) 1.4 % (0.0-2.0); EOSINOPHILS # (AUTO) 0.2 K/uL (0-0.4); EOSINOPHILS % (AUTO) 4.1 % (0.0-4.0); HEMATOCRIT 29.4 % (36-48); HEMOGLOBIN 10.1 g/dL (12.0-16.0); LYMPHOCYTES # (AUTO) 0.6 K/uL (2.5-16.5); LYMPHOCYTES % (AUTO) 14.8 % (20.5-51.1); MEAN CORPUSCULAR HEMOGLOBIN 28 pg (27-31); MEAN CORPUSCULAR HGB CONC 34 g/dL (33-37); MEAN CORPUSCULAR VOLUME 83 fL (80-94); MONOCYTES # (AUTO) 0.7 K/uL (0.8-1.0); MONOCYTES % (AUTO) 18.3 % (1.7-9.3); NEUTROPHILS # (AUTO) 2.3 K/uL (1.8-7.7); NEUTROPHILS % (AUTO) 61.4 % (42.2-75.2); PLATELET COUNT (AUTO) 298 K/uL (140-450); RED BLOOD CELL COUNT(AUTO) 3.56 MIL/uL (4.20-5.40); RED CELL DISTRIBUTION WIDTH 12.9 % (11.6-13.7)
[2017-04-27 07:47] LABS: ANION GAP 9.3 (8-16); POTASSIUM 4.3 mmol/L (3.5-5.1)
[2017-04-27 08:00] VITALS: BP 111/72
[2017-04-27 08:21] LABS: WHITE BLOOD COUNT (AUTO) 3.9 K/uL (4.8-10.8)
--- NOTE | 2017-04-27 10:08 | NUR ---
LOC ASLEEP EASILY AWAKENS NO EVIDENCE OF PULMONARY DISTRESS NOTED GOOD CHEST RISE SATURATION 94% ON ROOM AIR LEANDRO/RN NOTIFIED OF RA SATURATION
[2017-04-27] MEDS: LACTOBACILLUS RHAMNOSUS GG 1 EACH CAP PO SCH (10:52)
[2017-04-27] MEDS: PANTOPRAZOLE 40 MG TABEC PO SCH (10:52)
[2017-04-27] MEDS: PREZCOBIX PO SCH (10:53)
[2017-04-27] MEDS: MAGNESIUM OXIDE 400 MG TAB PO SCH (10:53)
[2017-04-27] MEDS: DESCOVY 200-25MG TAB PO SCH (10:53)
[2017-04-27] MEDS: OSELTAMIVIR PHOSPHATE 75 MG CAP PO SCH (10:53)
--- NOTE | 2017-04-27 11:00 | NUR ---
PHYSICAL THERAPY CO-SIGN The Physical Therapy Progress Notes documented by Sensitizer have been reviewed. Reviewed/Co-Signed by: Breanna Lao PT Documentation Done by: Shannen Garrett PTA I concur with the documentation of this HAIR PREPARER. Plan: continue as per plan of care if she remains in this hospital. Addendum: 04/27/17 at 1410 by Breanna Lao PT Amended: Links added.
[2017-04-27] MEDS: ONDANSETRON 4 MG/2 ML VIAL IM/IVP PRN (12:49)
--- NOTE | 2017-04-27 12:49 | NUR ---
PATIENT STATES THAT SHE FEELS NAUSEOUS AND THAT SHE CANNOT TAKE HER ANTIBIOTIC PILL BECAUSE SHE MIGHT THROW IT UP. ADMINISTERED ZOFRAN PRN FOR PATIENT TO HELP WITH NAUSEA. WILL CONTINUE TO MONITOR PATIENT.
[2017-04-27] MEDS ORDERED: BISACODYL 5 MG TABEC PO PRN (15:15)
[2017-04-27] MEDS ORDERED: DOCUSATE SODIUM 100 MG GELCAP PO SCH (15:30)
[2017-04-27 15:53] VITALS: BP 112/68
[2017-04-27] MEDS: MORPHINE SULFATE 2 MG/ML SYR IVP PRN (18:14)
--- NOTE | 2017-04-27 19:32 | NUR ---
RECEIVED REPORT FROM DAY SHIFT RN, PATIENT IS EATING DINNER IN BED, AWAKE, ALERT, ORIENTED X4, NO S/S OF DISTRESS NOTED, RESPIRATION EVEN AND UNLABORED, IV PATENT AND INTACT, INFUSING NS AT 20ML/HR, CALL LIGHT WITHIN REACH, SAFETY MEASURE ENSURED, WILL CONTINUE TO MONITOR.
[2017-04-27 20:00] VITALS: BP 97/57
[2017-04-27] MEDS: DOCUSATE SODIUM 100 MG GELCAP PO SCH (21:08)
--- NOTE | 2017-04-27 21:15 | NUR ---
DUE MEDICATION GIVEN, PATIENT TOLERATED WELL. NO S/S OF DISTRESS NOTED, RESPIRATION EVEN AND UNLABORED, CALL LIGHT WITHIN REACH, SAFETY MEASURE ENSURED, WILL CONTINUE TO MONITOR.
[2017-04-27] MEDS: LEVOFLOXACIN 750 MG/D5W PREMIX 150 ML IV SCH (23:23)
[2017-04-28] VITALS: BP 107/67
--- NOTE | 2017-04-28 02:13 | NUR ---
NO CHANGE IN CONDITION, PATIENT SLEEPING, RESPIRATION EVEN AND UNLABORED, NO S/S OF DISTRESS NOTED, CALL LIGHT WITHIN REACH, SAFETY MEASURE ENSURED, WILL CONTINUE TO MONITOR.
[2017-04-28] MEDS: SULFAMETH/TRIMETH DS 800/160MG 1 TAB PO SCH ×4 (05:21→23:39)
--- NOTE | 2017-04-28 05:27 | NUR ---
DUE MEDICATION GIVEN, PATIENT TOLERATED WELL. NO S/S OF DISTRESS NOTED, RESPIRATION EVEN AND UNLABORED, NO COUGHING NOTED, CALL LIGHT WITHIN REACH, SAFETY MEASURE ENSURED, WILL CONTINUE TO MONITOR
[2017-04-28] MEDS: ALBUTEROL SULFATE/IPRATROPIU 3 ML SOL IH SCH ×3 (07:13→20:44)
[2017-04-28] MEDS: BUDESONIDE 0.5 MG/2 ML NEBU INH SCH ×2 (07:23→20:44)
--- NOTE | 2017-04-28 07:30 | NUR ---
REPORT RECEIVED FROM INDEPENDENT BEAUTY CONSULTANT, PT SLEEPING QUIETLY IN NAD, RESP EVEN UNLABORED ON RA, SKIN WARM DRY COLOR WNL, AROUSES EASILY, NO C/O PAIN OR DISCOMFORT, PLAN OF CARE REVIEWED, INITIAL ASSESSMENT DONE, CALL FERNANDEZ WITHIN REACH, SIDE RAILS UP, BED LOCKED IN LOW POSITION, WILL CONTINUE TO MONITOR.
--- NOTE | 2017-04-28 07:34 | NUR ---
ENDORSED PLAN OF CARE TO DAY SHIFT RN, PATIENT RESTING IN BED, NO S/S OF DISTRESS, RESPIRATION EVEN AND UNLABORED, PATIENT IN STABLE CONDITION.
[2017-04-28 07:35] LABS: BASOPHILS # (AUTO) 0.1 K/uL (0.00-0.22); BASOPHILS % (AUTO) 2.4 % (0.0-2.0); EOSINOPHILS # (AUTO) 0.1 K/uL (0-0.4); EOSINOPHILS % (AUTO) 4.2 % (0.0-4.0); HEMATOCRIT 29.5 % (36-48); HEMOGLOBIN 10.1 g/dL (12.0-16.0); LYMPHOCYTES # (AUTO) 0.7 K/uL (2.5-16.5); LYMPHOCYTES % (AUTO) 19.5 % (20.5-51.1); MEAN CORPUSCULAR HEMOGLOBIN 27 pg (27-31); MEAN CORPUSCULAR HGB CONC 34 g/dL (33-37); MEAN CORPUSCULAR VOLUME 80 fL (80-94); MONOCYTES # (AUTO) 0.6 K/uL (0.8-1.0); NEUTROPHILS % (AUTO) 55.9 % (42.2-75.2); PLATELET COUNT (AUTO) 312 K/uL (140-450); RED BLOOD CELL COUNT(AUTO) 3.71 MIL/uL (4.20-5.40); WHITE BLOOD COUNT (AUTO) 3.6 K/uL (4.8-10.8)
[2017-04-28 08:00] VITALS: BP 118/72
[2017-04-28] MEDS: NACL 0.9% 1,000 ML IV SCH (08:25)
[2017-04-28] MEDS: ONDANSETRON 4 MG/2 ML VIAL IM/IVP PRN (08:27)
[2017-04-28] MEDS: LACTOBACILLUS RHAMNOSUS GG 1 EACH CAP PO SCH (08:30)
[2017-04-28] MEDS: PANTOPRAZOLE 40 MG TABEC PO SCH (08:30)
[2017-04-28] MEDS: DOCUSATE SODIUM 100 MG GELCAP PO SCH ×2 (08:30→20:13)
[2017-04-28] MEDS: MAGNESIUM OXIDE 400 MG TAB PO SCH (08:30)
--- NOTE | 2017-04-28 08:33 | NUR ---
PT STATES SHE FEELS NAUSEOUS, NO ACTIVE VOMITING, ZOFRAN GIVEN PER PRN ORDER, CALL FERNANDEZ WITHIN REACH, SIDE RAILS UP, WILL CONTINUE TO MONITOR.
[2017-04-28 08:56] LABS: ANION GAP 8.8 (8-16); CARBON DIOXIDE 29.7 mmol/L (21-32); CREATININE 0.8 mg/dL (0.6-1.3); POTASSIUM 4.5 mmol/L (3.5-5.1)
[2017-04-28] MEDS: PREZCOBIX PO SCH (09:44)
[2017-04-28] MEDS: PROMETHAZINE 25 MG/ML VIAL IVP PRN (09:44)
[2017-04-28] MEDS: DESCOVY 200-25MG TAB PO SCH (09:44)
--- NOTE | 2017-04-28 09:52 | NUR ---
PT STATES NAUSEA STILL CONTINUES, PHENERGAN GIVEN PER ORDRE, PT ABLE TO TAKE AM MEDS, HAS NOT EATEN BREAKFAST YET, CALL FERNANDEZ AT BEDSIDE, DENIES PAIN, DENIES OTHER IMMEDIATE NEEDS, WILL CONTINUE TO MONITOR.
[2017-04-28] MEDS: guaiFENesin 20 MG/ML UDC PO PRN (10:58)
--- NOTE | 2017-04-28 10:58 | NUR ---
PT STATES NAUSEA IS BETTER NOW, HAD SOME BREAKFAST, VIVEK WELL, PT TIRED, SLEEPY, C/O FREQ COUGHS, GUAIFENESIN GIVEN PER ORDER. WILL CONTINUE TO MONITOR.
[2017-04-28] MEDS ORDERED: ONDANSETRON 4 MG/2 ML VIAL IVP PRN ×2 (11:05→13:25)
[2017-04-28] MEDS ORDERED: ONDANSETRON IVP PRN (11:15)
[2017-04-28] MEDS ORDERED: DEXTROSE 5% IVP PRN (11:15)
--- NOTE | 2017-04-28 13:16 | NUR ---
PT SLEEPING WITH NO SIGNS OF DISTRESS NOTED AT THIS TIME
[2017-04-28 16:00] VITALS: BP 114/71
--- NOTE | 2017-04-28 16:02 | NUR ---
PT RESTING QUIELTY IN NAD, RESP EVEN UNLABORED ON RA, PT DENIES PAIN OR DISCOMFORT, DENIES N/V NOW, VITALS TAKEN, IVF INFUSING WELL SITE WNL, WILL CONTINUE TO MONITOR.
--- NOTE | 2017-04-28 17:35 | NUR ---
DUE MED GIVEN, PT VIVEK WELL, PT DENIES N/V, RESTING QUIETLY IN NAD, RESP EVEN UNLABORED ON RA, DENIES ANY IMMEDIATE NEEDS, PT REMAINS ON AIRBORN PRECAUTION, CALL FERNANDEZ WITHIN REACH, SIDE RAILS UP, BED LOCKED IN LOW POSITION, DR DALEY TO BEDSIDE.
[2017-04-28] MEDS ORDERED: SULFAMETH/TRIMETH DS 800/160MG 1 TAB PO SCH (18:00)
--- NOTE | 2017-04-28 19:19 | NUR ---
REPORT GIVEN TO MEDICAL RECORDS FIELD TECHNICIAN NURSE TRISH JACOBSON IN STABLE CONDITION.
--- NOTE | 2017-04-28 19:20 | NUR ---
RECEIVED PT IN STABLE CONDITION FROM AM NURSE. MED SURG PT. AWAKE,ALERT AND ORIENTED X4. ON AIRBORNE ISOLATION DUE TO R/O TB. PT HAS OCCASIONAL PRODUCTIVE COUGH. NO FEVER. SKIN INTACT. WITH IVF INFUSING WELL ON THE LT WRIST#20. PT AMBULATES TO BATHROOM. PLAN OF CARE DISCUSSED AND VERBALIZED UNDERSTANDING. BED ON LOW POSITION. CALL LIGHT PLACED WITHIN EASY REACH. WILL CONTINUE TO MONITOR.
--- NOTE | 2017-04-28 21:30 | NUR ---
IV ACCESS ON THE LT WRIST INFILTRATED. DISCONTINUED. STARTED ANEW IV ACCESS ON THE RT HAND#22. CLEAR AND PATENT.
[2017-04-28] MEDS: LEVOFLOXACIN 750 MG/D5W PREMIX 150 ML IV SCH (23:38)
[2017-04-28 23:45] VITALS: BP 110/74
[2017-04-28] MEDS: HYDROcodone/APAP 7.5/325 MG 1 TAB PO PRN (23:49)
--- NOTE | 2017-04-29 02:00 | NUR ---
MADE ROUNDS. PT IS AWAKE. NO C/O ANY DISCOMFORT NOR PAIN AT THIS TIME.
[2017-04-29] MEDS: HYDROcodone/APAP 7.5/325 MG 1 TAB PO PRN ×3 (05:16→22:46)
[2017-04-29] MEDS: SULFAMETH/TRIMETH DS 800/160MG 1 TAB PO SCH ×3 (05:17→16:57)
--- NOTE | 2017-04-29 06:16 | NUR ---
MEDICATED X2 WITH MODERATE PAIN DURING THE NIGHT. PT HAS BEEN RELIEVED BY IT. WILL CONTINUE TO MONITOR.
[2017-04-29 07:04] LABS: BASOPHILS # (AUTO) 0.1 K/uL (0.00-0.22); BASOPHILS % (AUTO) 2.1 % (0.0-2.0); EOSINOPHILS # (AUTO) 0.2 K/uL (0-0.4); EOSINOPHILS % (AUTO) 3.9 % (0.0-4.0); HEMOGLOBIN 10.4 g/dL (12.0-16.0); LYMPHOCYTES # (AUTO) 0.7 K/uL (2.5-16.5); LYMPHOCYTES % (AUTO) 17.7 % (20.5-51.1); MEAN CORPUSCULAR HEMOGLOBIN 27 pg (27-31); MEAN CORPUSCULAR HGB CONC 34 g/dL (33-37); MEAN CORPUSCULAR VOLUME 81 fL (80-94); MONOCYTES # (AUTO) 0.6 K/uL (0.8-1.0); MONOCYTES % (AUTO) 14.7 % (1.7-9.3); NEUTROPHILS # (AUTO) 2.5 K/uL (1.8-7.7); NEUTROPHILS % (AUTO) 61.6 % (42.2-75.2); PLATELET COUNT (AUTO) 340 K/uL (140-450); RED BLOOD CELL COUNT(AUTO) 3.81 MIL/uL (4.20-5.40); RED CELL DISTRIBUTION WIDTH 13.3 % (11.6-13.7); WHITE BLOOD COUNT (AUTO) 4.1 K/uL (4.8-10.8)
--- NOTE | 2017-04-29 07:10 | NUR ---
ENDORSED PT IN STABLE CONDITION TO AM NURSE.
--- NOTE | 2017-04-29 07:15 | NUR ---
REPORT RECEIVED FROM HEELER MACHINE, PT RESTING QUIETLY USING HER PHONE IN NAD, RESP EVEN UNLABORED ON RA, SKIN WARM DRY COLOR WNL, IVF INFUSING WELL, SITE WNL, PT SPEAKS CLEARLY, PLAN OF CARE REVIEWED, DENIES PAIN OR DISCOMFORT, SAFETY MEASURES IN PLACE, CALL FERNANDEZ WITHIN REACH, SIDE RAILS UP, BED LOCKED IN LOW POSITION, PT REMAINS ON AIRBORN PRECAUTION, WILL CONTINUE TO MONITOR.
[2017-04-29] MEDS: ALBUTEROL SULFATE/IPRATROPIU 3 ML SOL IH SCH ×3 (07:21→19:39)
[2017-04-29 07:27] LABS: ANION GAP 9.3 (8-16); CARBON DIOXIDE 28.8 mmol/L (21-32); POTASSIUM 4.1 mmol/L (3.5-5.1)
[2017-04-29] MEDS: BUDESONIDE 0.5 MG/2 ML NEBU INH SCH ×2 (07:29→19:39)
[2017-04-29 08:00] VITALS: BP 120/78
[2017-04-29 08:36] LABS: CREATININE 0.9 mg/dL (0.6-1.3)
[2017-04-29] MEDS: NACL 0.9% 1,000 ML IV SCH ×2 (09:35→20:23)
[2017-04-29] MEDS: DESCOVY 200-25MG TAB PO SCH (09:41)
[2017-04-29] MEDS: PREZCOBIX PO SCH (09:41)
[2017-04-29] MEDS: PANTOPRAZOLE 40 MG TABEC PO SCH (09:41)
[2017-04-29] MEDS: DOCUSATE SODIUM 100 MG GELCAP PO SCH ×2 (09:41→21:12)
[2017-04-29] MEDS: MAGNESIUM OXIDE 400 MG TAB PO SCH (09:41)
[2017-04-29] MEDS: LACTOBACILLUS RHAMNOSUS GG 1 EACH CAP PO SCH (09:41)
--- NOTE | 2017-04-29 09:46 | NUR ---
AM MEDS GIVEN, PT VIVEK WELL, PT DENIES PAIN OR DISCOMFORT, PT PLAYING ON HER PHONE IN NAD, DENIES ANY IMMEDIATE NEEDS, WILL CONTINUE TO MONTIOR.
--- NOTE | 2017-04-29 12:06 | NUR ---
DUE MED GIVEN, PT VIVEK WELL, PT DENIES PAIN OR DISCOMFORT, DENIES ANY IMMEDIATE NEEDS, SITTING UP FOR LUNCH, WILL CONTINUE TO MONITOR.
[2017-04-29 16:00] VITALS: BP 109/67
--- NOTE | 2017-04-29 16:57 | NUR ---
PT C/O CHEST PAIN FROM COUGHING, NORCO GIVEN AT THIS TIME, WILL CONTINUIE TO MONTIOR
--- NOTE | 2017-04-29 18:11 | NUR ---
PT STATES PAIN HAS IMPROVED SINCE NORCO, PT SITTING UP EATING DINNER, RESP EVEN UNLABORED, SKIN WARM DRY COLOR WNL, IVF INFUSING WELL, SITE CLEAR, PT DENIES ANY OTHER IMMEDIATE NEEDS, WILL CONTINUE TO MONITOR.
--- NOTE | 2017-04-29 19:20 | NUR ---
REPORT GIVEN TO [employer]ES PRINTING MACHINE OPERATOR NURSE REINA, PT IN STABLE CONDITION.
--- NOTE | 2017-04-29 19:22 | NUR ---
RECEIVED PT IN STABLE CONDITION FROM AM NURSE. AWAKE,ALERT AND ORIENTED X4. MED SURG PT. WITH NO C/O OF ANY DISCOMFORT /PAIN AT THIS TIME. STILL WITH OCCASIONAL PRODUCTIVE COUGH. IVF INFUSING WELL ON THE RT HAND [id number]. CLEAR AND PATENT. AMBULATORY TO BATHROOM. PLAN OF CARE DISCUSSED AND VERBALIZED UNDERSTANDING. BED ON LOW POSITION. ON AIRBORNE ISOLATION DUE TO R/O TB. STILL AWAITING FOR RESULTS OF AFB . CALL LIGHT PLACED WITHIN EASY REACH. WILL CONTINUE TO MONITOR.
[2017-04-29] MEDS: PROMETHAZINE 25 MG/ML VIAL IVP PRN (21:12)
--- NOTE | 2017-04-29 21:12 | NUR ---
PT C/O NAUSEA. MEDICATED WITH PHENERGAN IVP ORDERED. WILL CONTINUE TO MONITOR.
--- NOTE | 2017-04-29 22:45 | NUR ---
MAD ROUNDS, PT C/O PAIN . MEDICATED ORDERED. WILL CONTINUE TO MONITOR.
[2017-04-29] MEDS: LEVOFLOXACIN 750 MG/D5W PREMIX 150 ML IV SCH (22:46)
[2017-04-29 23:30] VITALS: BP 118/82
[2017-04-30] MEDS: SULFAMETH/TRIMETH DS 800/160MG 1 TAB PO SCH ×3 (00:37→11:39)
--- NOTE | 2017-04-30 02:45 | NUR ---
MADE ROUNDS. ASLEEP. NO S/S OF ANY DISCOMFORT NOR APIN NOTED.
--- NOTE | 2017-04-30 04:30 | NUR ---
MADE ROUNDS. PT IS ASLEEP. NO S/S OF ANY DISCOMFORT NOTED.
--- NOTE | 2017-04-30 05:30 | NUR ---
PT TOOK AM MEDS. NO C/O OF ANY PAIN AT THI TIME.
[2017-04-30] MEDS: ALBUTEROL SULFATE/IPRATROPIU 3 ML SOL IH SCH ×2 (07:00→13:00)
[2017-04-30] MEDS: BUDESONIDE 0.5 MG/2 ML NEBU INH SCH (07:10)
--- NOTE | 2017-04-30 07:10 | NUR ---
ENDORSED PT IN STABLE CONDITION TO AM NURSE.
--- NOTE | 2017-04-30 07:11 | NUR ---
RECEIVED REPORT FROM SOLID WASTE LANDFILL TECHNICIAN NURSE. PATIENT LYING IN BED SLEEPING, AROUSABLE BY VOICE. NO DISTRESS NOTED. RESPIRATIONS EVEN, UNLABORED, ON ROOM AIR. DENIES ANY PAIN AT THIS TIME. AAOX4, SKIN COLOR APPROPRIATE TO ETHNICITY, WARM TO TOUCH. SKIN INTACT. LUNGS CTA ON ALL LOBES. ABDOMEN SOFT, NON-TENDER. IV SITE INTACT, PATENT, AND INFUSING PER ORDERS. REVIEWED PLAN OF CARE WITH PATIENT. PATIENT VERBALIZED UNDERSTANDING. SAFETY MEASURES IN PLACE, CALL LIGHT WITHIN REACH, FALL PREVENTIONS IN PLACE. WILL CONTINUE TO MONITOR.
[2017-04-30] MEDS: NACL 0.9% 1,000 ML IV SCH (07:25)
[2017-04-30 07:32] LABS: BASOPHILS # (AUTO) 0.1 K/uL (0.00-0.22); BASOPHILS % (AUTO) 1.5 % (0.0-2.0); EOSINOPHILS # (AUTO) 0.2 K/uL (0-0.4); EOSINOPHILS % (AUTO) 5.2 % (0.0-4.0); HEMATOCRIT 29.8 % (36-48); HEMOGLOBIN 9.9 g/dL (12.0-16.0); LYMPHOCYTES # (AUTO) 0.5 K/uL (2.5-16.5); MEAN CORPUSCULAR HEMOGLOBIN 26 pg (27-31); MEAN CORPUSCULAR HGB CONC 33 g/dL (33-37); MEAN CORPUSCULAR VOLUME 79 fL (80-94); MONOCYTES # (AUTO) 0.6 K/uL (0.8-1.0); MONOCYTES % (AUTO) 15.7 % (1.7-9.3); NEUTROPHILS # (AUTO) 2.4 K/uL (1.8-7.7); NEUTROPHILS % (AUTO) 63.6 % (42.2-75.2); PLATELET COUNT (AUTO) 312 K/uL (140-450); RED BLOOD CELL COUNT(AUTO) 3.79 MIL/uL (4.20-5.40); RED CELL DISTRIBUTION WIDTH 13.4 % (11.6-13.7); WHITE BLOOD COUNT (AUTO) 3.8 K/uL (4.8-10.8)
[2017-04-30 08:00] VITALS: BP 110/70
[2017-04-30] MEDS: LACTOBACILLUS RHAMNOSUS GG 1 EACH CAP PO SCH (08:55)
[2017-04-30] MEDS: DOCUSATE SODIUM 100 MG GELCAP PO SCH (08:55)
[2017-04-30] MEDS: DESCOVY 200-25MG TAB PO SCH (08:56)
[2017-04-30] MEDS: PREZCOBIX PO SCH (08:56)
[2017-04-30] MEDS: MAGNESIUM OXIDE 400 MG TAB PO SCH (08:56)
[2017-04-30] MEDS: PANTOPRAZOLE 40 MG TABEC PO SCH (08:56)
--- NOTE | 2017-04-30 09:05 | NUR ---
PATIENT LYING IN BED SLEEPING, AROUSABLE BY VOICE. NO DISTRESS NOTED. DENIES ANY PAIN. BREAKFAST TRAY IN FRONT. SAT PATIENT UP TO GIVE MEDICATIONS. SCHEDULED MEDICATIONS DUE GIVEN. INTERMITTENT COUGH NOTED. PATIENT TO EAT A LITTLE BIT OF BREAKFAST. SAFETY MEASURES IN PLACE, CALL LIGHT WITHIN REACH. WILL CONTINUE TO MONITOR.
--- NOTE | 2017-04-30 10:45 | NUR ---
PATIENT LYING IN BED SLEEPING, AROUSABLE BY VOICE. NO DISTRESS NOTED. DENIES ANY PAIN. SAFETY MEASURES IN PLACE, CALL LIGHT WITHIN REACH. WILL CONTINUE TO MONITOR.
[2017-04-30 10:50] LABS: ANION GAP 7.4 (8-16); CARBON DIOXIDE 31.2 mmol/L (21-32); CREATININE 0.8 mg/dL (0.6-1.3); POTASSIUM 4.6 mmol/L (3.5-5.1)
--- NOTE | 2017-04-30 11:00 | NUR ---
PHYSICAL THERAPY AT BEDSIDE WORKING WITH PATIENT. WILL CONTINUE TO MONITOR.
--- NOTE | 2017-04-30 11:49 | NUR ---
PATIENT LYING IN BED WATCHING TV. NO DISTRESS NOTED. DENIES ANY PAIN AT THIS TIME. SCHEDULED MEDICATIONS DUE GIVEN. SAFETY MEASURES IN PLACE, CALL LIGHT WITHIN REACH. WILL CONTINUE TO MONITOR.
--- NOTE | 2017-04-30 13:06 | NUR ---
PATIENT LYING IN BED SLEEPING, NO DISTRESS NOTED. DENIES PAIN AT THIS TIME. SAFETY MEASURES IN PLACE, CALL LIGHT WITHIN REACH. WILL CONTINUE TO MONITOR.
--- NOTE | 2017-04-30 13:31 | NUR ---
PER DR. DEE BREATHING TX IS NOW PRN DR. DEE IS CHANGING ORDER CHECKED PT NO SIGNS OF DISTRESS NOTED AT THIS TIME
[2017-04-30] MEDS ORDERED: HYDROcodone/APAP 7.5/325 MG 1 TAB PO PRN (13:35)
--- NOTE | 2017-04-30 14:04 | NUR ---
PHYSICAL THERAPY CO-SIGN The Physical Therapy Progress Notes documented by Hat Copyist have been reviewed. Reviewed/Co-Signed by: Elham Allen DPT Documentation Done by: Mik Gomes PTA Weekly assessment completed, chart reviewed, based on previous tx notes, patient progressing towards goals, improved overall functional mobility, but cont to demo decreased activity/gait nicole, cont with initial goals and PT POC once daily 5x/wk x 1 wk for ther ex/activity, gait/balance trng, and patient/fam [facility]. Addendum: 04/30/17 at 1406 by Elham Allen PT Amended: Links added.
--- NOTE | 2017-04-30 14:18 | NUR ---
PATIENT LYING IN BED SLEEPING, AROUSABLE BY VOICE. NO DISTRESS NOTED. DENIES ANY PAIN. SAFETY MEASURES IN PLACE, CALL LIGHT WITHIN REACH. WILL CONTINUE TO MONITOR.
--- NOTE | 2017-04-30 14:40 | NUR ---
CM NOTE PATIENT TO CONTINUE PREVIOUS HOME HEALTH SERVICES ONCE DISCHARGED. NICOLETTE MORALES MADE AWARE. Addendum: 04/30/17 at 1617 by Luis Parr RN CORRECTION: PATIENT DOES NOT HAVE HOME HEALTH SET UP. FAXED PATIENT INFORMATION TO [facility] / FAX# [phone], ATTN: MARTÍN
[2017-04-30] MEDS ORDERED: LACT10CA1 PO (14:42)
[2017-04-30] MEDS ORDERED: SULF-58 PO (14:42)
[2017-04-30] MEDS ORDERED: ONDA4TAB PO (14:42)
[2017-04-30] MEDS ORDERED: ACET-2863 PO (14:45)
[2017-04-30] MEDS ORDERED: [UNRECOGNIZED DRUG - CODE] PO (14:45)
--- NOTE | 2017-04-30 14:49 | NUR ---
04/30/17 RD FOLLOW UP COMPLETED. PLEASE REFER TO NUTRITION PROGRESS NOTE UNDER CARE ACTIVITY FOR ESTIMATED NUTRITION NEEDS. 1.CONTINUE CURRENT DIET TOLERATED. 2.PT TO RECEIVE 6 SMALL MEALS AND HEALTH SHAKE BID. 3.RD TO FOLLOW-UP 2-3DAYS, HIGH RISK GHASSAN TELLES, RD
[2017-04-30] MEDS ORDERED: SULF1TAB12 PO (14:53)
--- NOTE | 2017-04-30 15:15 | NUR ---
NOTIFIED PATIENT THAT SHE WAS BEING DISCHARGED HOME TODAY. PATIENT ALREADY AWARE AND HAS NIECE COMING TO PICK HER UP TO TAKE HOME IN ABOUT 30 MINUTES PER PATIENT REPORTS. EXPLAINED TO PATIENT THAT A HOME HEALTH AGENCY WILL CONTACT HER TOMORROW TO SET UP A VISIT TO HER HOME FOR SN EVALUATION AND PT EVALUATION FOR SAFETY/GAIT/MOBILITY TRAINING PER MD ORDERS. TOLD PATIENT THAT I WILL BE BACK ONCE ALL DISCHARGE PAPERWORK IS COMPLETED WITH MEDICATION PRESCRIPTIONS AND DISCHARGE INSTRUCTIONS. PATIENT VERBALIZED UNDERSTANDING. BLUE WELFARE ADVISER PHONE USED THROUGHOUT CONVERSATION WITH WELFARE ADVISER #[id number] FOR [place] TO CITIZEN OF [place] AND [place] TRANSLATION. WILL CONTINUE TO MONITOR.
[2017-04-30] MEDS: guaiFENesin 20 MG/ML UDC PO PRN (15:57)
--- NOTE | 2017-04-30 16:15 | NUR ---
PATIENT SITTING IN BED ALL DRESSED UP READY TO GO HOME. DISCHARGE INSTRUCTIONS PROVIDED TO PATIENT IN PREFERRED LANGUAGE OF [place] USING BLUE MALLET AND DIE CUTTER PHONE. DISCHARGE INSTRUCTIONS, FOLLOW-UP VISITS, NEW/CHANGED MEDICATIONS GIVEN TO PATIENT. PATIENT'S OWN HOME MEDICATION STORED AT HOSPITAL PHARMACY GIVEN BACK TO PATIENT. NEW MEDICATION PRESCRIPTIONS GIVEN TO PATIENT. EDUCATED PATIENT THAT A HOME HEALTH AGENCY WILL CALL HER TOMORROW TO SCHEDULE A HOME VISIT PER LEGAL ADMINISTRATOR, ANOOP, REPORTED TO ME. ANSWERED ALL OF PATIENT'S QUESTIONS REGARDING DISCHARGE AND HOME HEALTH FOLLOW-UP. PATIENT VERBALIZED COMPLETE UNDERSTANDING. IV SITE REMOVED WITH MINIMAL BLOOD AND LUMEN COMPLETELY INTACT. ID BANDS REMOVED. AWAITING FOR PATIENT'S NIECE TO COME TO TAKE HER HOME. WILL CONTINUE TO MONITOR.
--- NOTE | 2017-04-30 16:30 | NUR ---
PATIENT'S NIECE ARRIVED ON MST UNIT TO TAKE PATIENT HOME. ESCORTED PATIENT DOWN TO LOBBY VIA WHEELCHAIR. PATIENT ABLE TO AMBULATE FROM WHEELCHAIR TO NIECE'S CAR. PATIENT DISCHARGED TO HOME AT THIS TIME VIA PRIVATE VEHICLE IN STABLE CONDITION.
[2017-04-30] MEDS ORDERED: LEVOFLOXACIN 750 MG/D5W PREMIX 150 ML IV SCH (23:00)
== END 2017-04-30 16:30 | disposition home health service (06) | DRG 974 ==
LOC: MED 18:49 → MTU 23:28
PROVIDERS: ADMIT Family Medicine Sports Medicine; ATTEND Family Medicine Sports Medicine
PROC: 009U3ZX Drainage of Spinal Canal, Percutaneous Approach, Diagnostic (ICD-10-PCS; principal; 2017-04-15)
DX: B20 Human immunodeficiency virus [HIV] disease (principal); A41.9 Sepsis, unspecified organism; N17.0 Acute kidney failure with tubular necrosis; B59 Pneumocystosis; J96.01 Acute respiratory failure with hypoxia; J69.0 Pneumonitis due to inhalation of food and vomit; J84.9 Interstitial pulmonary disease, unspecified; D70.9 Neutropenia, unspecified; A15.9 Respiratory tuberculosis unspecified; M99.08 Segmental and somatic dysfunction of rib cage; E83.42 Hypomagnesemia; E86.0 Dehydration; E78.2 Mixed hyperlipidemia; F15.10 Other stimulant abuse, uncomplicated; K20.9 Esophagitis, unspecified; M99.09 Segmental and somatic dysfunction of abdomen and other regions; R13.11 Dysphagia, oral phase; I10 Essential (primary) hypertension; R80.9 Proteinuria, unspecified; E11.9 Type 2 diabetes mellitus without complications; J02.9 Acute pharyngitis, unspecified; M54.9 Dorsalgia, unspecified; Z22.322 Carrier or suspected carrier of Methicillin resistant Staphylococcus aureus; Z87.01 Personal history of pneumonia (recurrent); Z88.6 Allergy status to analgesic agent; Z85.118 Personal history of other malignant neoplasm of bronchus and lung; Z85.3 Personal history of malignant neoplasm of breast
CPT/HCPCS: 36415; 62270; 70450; 71045; 71275; 73030; 80048; 80053; 80305; 81001; 81025; 82140; 82150; 82310; 82948; 83036; 83605; 83690; 83735; 83880; 84100; 84157; 84436; 84439; 84443; 84479; 84484; 84550; 85025; 85610; 85730; 86360; 86592; 86702; 86738; 87040; 87070; 87081; 87086; 87102; 87116; 87190; 87205; 87206; 87207; 87536; 87804; 87899; 94617; 94640; 97110; 97116; 97530; 99285; J0692; J0696; J1885; J1956; J2270; J2405; J2550; J3370; J3475; J7030; J7060; J7620; J7626; Q0092; Q9967

== ENCOUNTER 2017-06-18 14:41 | Inpatient (IN) | payer OTHER, MEDICAID ==
[~2017-06-18] VITALS: Ht 160 cm; Wt 41.3 kg
[~2017-06-18 14:41] MED LIST: ACET-2863 PO; ALBU-118 IH; ATOR20TA40 PO; AZIT600T PO; BUDE90PO IH; COBI1TAB PO; CYCL10TA14 PO; EMTR1TAB16 PO; LACT10CA PO; LACT10CA1 PO; LEVO500T2 PO; METH4TAB3 PO; ONDA4TAB PO; ROB PO; SULF1TAB12 PO; [UNRECOGNIZED DRUG - CODE] PO
[2017-06-18 14:43] VITALS: BP 134/86
--- NOTE | 2017-06-18 14:48 | NUR ---
PT AMBULATED TO BED 3
[2017-06-18] MEDS ORDERED: NACL 0.9% 1,000 ML IV SCH ×2 (14:54→16:58)
[2017-06-18] MEDS ORDERED: KETOROLAC 30 MG/ML VIAL IVP ONE (14:55)
[2017-06-18] MEDS ORDERED: ALBUTEROL 0.083% 2.5 MG/3 ML NEBU INH ONE (14:55)
[2017-06-18] MEDS ORDERED: IPRATROPIUM 0.02% 0.5 MG/2.5 ML NEBU INH ONE (14:55)
--- NOTE | 2017-06-18 14:55 | NUR ---
SOB X 1 WEEK, UNABLE TO SPEAK FULL SENTENCES, TACHYPNIC AT 28/MIN. ALSO REPORTS CHEST PAIN X 1 WEEK RADIATING TO BACK, WORSENING THIS AM. UNABLE TO AMBULATE. DENIES N/V/D; SKIN IS PINK/WARM/DRY; AAOX4 WITH EVEN AND STEADY GAIT; LUNGS CLEAR BL; HR EVEN AND REGULAR; PT DENIES ANY FEVER, SOB, OR COUGH AT THIS TIME; PATIENT STATES PAIN OF 10/10 AT THIS TIME; PATIENT POSITIONED FOR COMFORT; HOB ELEVATED; BEDRAILS UP X2; BED DOWN. ER MD MADE AWARE OF PT STATUS.
--- NOTE | 2017-06-18 15:14 | NUR ---
XRAY AT BEDSIDE
--- NOTE | 2017-06-18 15:29 | NUR ---
RT AT BEDSIDE
[2017-06-18 15:38] LABS: BASOPHILS # (AUTO) 0.2 K/uL (0.00-0.22); EOSINOPHILS # (AUTO) 0.4 K/uL (0-0.4); HEMOGLOBIN 11.9 g/dL (12.0-16.0); LYMPHOCYTES # (AUTO) 0.4 K/uL (2.5-16.5); MEAN CORPUSCULAR HEMOGLOBIN 25 pg (27-31); MEAN CORPUSCULAR HGB CONC 31 g/dL (33-37); MEAN CORPUSCULAR VOLUME 79 fL (80-94); MONOCYTES # (AUTO) 0.8 K/uL (0.8-1.0); NEUTROPHILS # (AUTO) 3.8 K/uL (1.8-7.7); PLATELET COUNT (AUTO) 420 K/uL (140-450); RED BLOOD CELL COUNT(AUTO) 4.85 MIL/uL (4.20-5.40); WHITE BLOOD COUNT (AUTO) 5.6 K/uL (4.8-10.8)
[2017-06-18 15:57] LABS: ANION GAP 9.8 (8-16); CARBON DIOXIDE 30.4 mmol/L (21-32); CREATININE 0.8 mg/dL (0.6-1.3); POTASSIUM 4.2 mmol/L (3.5-5.1)
--- NOTE | 2017-06-18 16:00 | NUR ---
offered pt urine cup, no urine sample got yet. aware.
[2017-06-18 16:02] LABS: ALBUMIN 3.3 g/dL (3.4-5.0); TOTAL BILIRUBIN 0.2 mg/dL (0.0-1.0)
[2017-06-18 16:03] LABS: PROTHROMBIN TIME 10.6 secs (10.8-13.4)
[2017-06-18 16:04] LABS: LACTATE DEHYDROGENASE 221 U/L (81-234)
[2017-06-18] MEDS ORDERED: LEVOFLOXACIN 500 MG/D5W PREMIX 100 ML IV ONE (16:35)
[2017-06-18] MEDS ORDERED: BACTRIM IV PER PHARMACY MC PRN (16:35)
[2017-06-18] MEDS ORDERED: CHLORPHENIRAMINE PO SCH (17:05)
[2017-06-18] MEDS ORDERED: DEXTROMETHORP PO SCH (17:05)
[2017-06-18] MEDS ORDERED: ALBUTEROL SULFATE/IPRATROPIU 3 ML SOL IH PRN (17:05)
[2017-06-18] MEDS ORDERED: PIPERACILLIN/TAZOBACTAM 3.375 GM in DEXTROSE 5% 50 ML IV SCH (18:00)
--- NOTE | 2017-06-18 18:15 | NUR ---
PT TRANSFERRED TO TELE 113, REPORT GIVEN TO PEACE MORALES. PEACE AWARE TO FOLLOW UP WITH URINE SAMPLE.
--- NOTE | 2017-06-18 18:30 | NUR ---
RECEIVED PT REPORT FROM ER NURSE AT BEDSIDE. PT IS PLACED IN ROOM 113. PT IS ABLE TO WALK FROM BED TO BED. PT IS AAOX4. PT C/O CHEST PAIN. DX OF PNA AND SEPSIS. VITALS TAKEN. PT IS ON 2L OXYGEN VIA NC. NO SOB NOTED AT THIS TIME. PLACED PT ON TELE MONITOR. MRSA DONE. UPDATED BOARD, ORIENTED PT TO ROOM. WILL CONTINUE TO MONITOR.
[2017-06-18 18:35] VITALS: BP 122/76
--- NOTE | 2017-06-18 18:45 | NUR ---
DR POTTER HAS SEEN THE PT.
[2017-06-18] MEDS: PIPER/TAZO 3.375GM/D5W PREMIX 50 ML IV SCH ×2 (18:59→23:57)
--- NOTE | 2017-06-18 19:00 | NUR ---
PT'S HOME MED HAS BEEN SENT TO PHARMACY.
[2017-06-18 19:16] LABS: AMYLASE 54 U/L (25-115); LIPASE 179 U/L (73-393)
--- NOTE | 2017-06-18 19:30 | NUR ---
ADMITTED 47 YEARS OLD FEMALE FROM ER FOR CHEST PAIN. DX: SEPSIS, PNA. SEE NURSING ASSESSMENT AND HISTORY. ORIENTED TO ROOM AND UNIT ROUTINES. PLAN OF CARE DISCUSSED WITH PATIENT, VERBALIZED UNDERSTANDING WELL. CARE BOARD UPDATED. CALL LIGHT WITHIN REACH.
--- NOTE | 2017-06-18 19:40 | NUR ---
REPORT GIVEN TO MORTGAGE PROTECTION SALES. PT IS IN STABLE CONDITION.
[2017-06-18] MEDS: BUDESONIDE 0.5 MG/2 ML NEBU INH SCH (19:46)
[2017-06-18] MEDS: ALBUTEROL SULFATE/IPRATROPIU 3 ML SOL IH SCH (19:46)
[2017-06-18] MEDS ORDERED: BUDESONIDE 90 MCG IH SCH (21:00)
[2017-06-18] MEDS: ATORVASTATIN 20 MG TAB PO SCH (21:24)
[2017-06-18] MEDS ORDERED: DOCUSATE SODIUM 100 MG GELCAP PO PRN (21:30)
[2017-06-18] MEDS ORDERED: ACETAMINOPHEN 325 MG TAB PO PRN (21:30)
--- NOTE | 2017-06-18 22:30 | NUR ---
DUE MEDS GIVEN. CLARIFIED ALL MEDS WITH MD AND PHARMACY.
[2017-06-18] MEDS ORDERED: SULFAMETH/TRIMETH DS 800/160MG 1 TAB PO SCH (22:40)
[2017-06-18] MEDS: MORPHINE SULFATE 2 MG/ML SYR IVP PRN (22:45)
[2017-06-18] MEDS: SULFAMETH/TRIMETH DS 800/160MG 1 TAB PO SCH (22:46)
[2017-06-19] VITALS: BP 136/77
--- NOTE | 2017-06-19 00:02 | NUR ---
SLEEPING WELL. NO COMPLAINS. VITAL SIGNS STABLE. AFEBRILE. SARAH LIGHT WITHIN REACH.
[2017-06-19] MEDS: MORPHINE SULFATE 2 MG/ML SYR IVP PRN ×5 (04:13→21:48)
[2017-06-19 04:23] VITALS: BP 118/80
--- NOTE | 2017-06-19 04:27 | NUR ---
ASLEEP, EASILY AROUSABLE. PAIN MEDS REQUESTED AND GIVEN ORDERED. VITAL SIGNS STABLE. AFEBRILE. CALL LIGHT WITHIN REACH.
[2017-06-19] MEDS: PIPER/TAZO 3.375GM/D5W PREMIX 50 ML IV SCH ×3 (05:14→17:22)
--- NOTE | 2017-06-19 06:18 | NUR ---
OFFERED MULTIPLE TIMES TO USE BEDSIDE COMMODE AND EVEN OFFERED BED [place], PATIENT REFUSE TO USE BSC OR BEDPAN.
[2017-06-19 07:14] LABS: BASOPHILS # (AUTO) 0.1 K/uL (0.00-0.22); BASOPHILS % (AUTO) 1.4 % (0.0-2.0); EOSINOPHILS # (AUTO) 0.2 K/uL (0-0.4); EOSINOPHILS % (AUTO) 5.1 % (0.0-4.0); HEMATOCRIT 33.3 % (36-48); HEMOGLOBIN 10.6 g/dL (12.0-16.0); LYMPHOCYTES # (AUTO) 0.5 K/uL (2.5-16.5); LYMPHOCYTES % (AUTO) 10.9 % (20.5-51.1); MEAN CORPUSCULAR HEMOGLOBIN 25 pg (27-31); MEAN CORPUSCULAR HGB CONC 32 g/dL (33-37); MEAN CORPUSCULAR VOLUME 80 fL (80-94); MONOCYTES # (AUTO) 0.7 K/uL (0.8-1.0); MONOCYTES % (AUTO) 16.2 % (1.7-9.3); NEUTROPHILS # (AUTO) 2.7 K/uL (1.8-7.7); NEUTROPHILS % (AUTO) 66.4 % (42.2-75.2); PLATELET COUNT (AUTO) 287 K/uL (140-450); RED BLOOD CELL COUNT(AUTO) 4.18 MIL/uL (4.20-5.40); RED CELL DISTRIBUTION WIDTH 15.1 % (11.6-13.7); WHITE BLOOD COUNT (AUTO) 4.2 K/uL (4.8-10.8)
--- NOTE | 2017-06-19 07:17 | NUR ---
ENDORSED CARE AT BEDSIDE WITH DORIS MORALES, PATIENT IN STABLE CONDITION.
[2017-06-19 07:19] LABS: ANION GAP 8.8 (8-16); CARBON DIOXIDE 29.2 mmol/L (21-32); CREATININE 0.8 mg/dL (0.6-1.3)
--- NOTE | 2017-06-19 07:20 | NUR ---
RECEIVED PATIENT REPORT AT BEDSIDE FROM NIGHT NURSE. PATIENT IS SLEEPING, EASILY AROUSABLE WITH VOICE AND STATES GENERALIZED PAIN 10/10 AT THIS TIME. WILL ADMINISTER PRN MEDICATIONS FOR PAIN. PATIENT ON TELE MONITOR. SKIN INTACT. PATIENT IS ON O2 @ 2L VIA NC, IV ON THE RIGHT AC 20G PATENT AND INTACT. PATIENT WAS EXPLAINED POC FOR TODAY, SAFETY AND FALL PRECAUTIONS IN PLACE AND SHE VERBALIZED UNDERSTANDING OF CARE. BED IN LOW POSITION WITH CALL LIGHT WITHIN REACH.
[2017-06-19] MEDS: ALBUTEROL SULFATE/IPRATROPIU 3 ML SOL IH SCH ×3 (07:30→19:36)
[2017-06-19] MEDS: BUDESONIDE 0.5 MG/2 ML NEBU INH SCH (07:30)
[2017-06-19 07:31] LABS: MAGNESIUM 1.8 mg/dL (1.8-2.4); PHOSPHORUS 3.5 mg/dL (2.5-4.9)
[2017-06-19] MEDS ORDERED: ETHAMBUTOL 400 MG TAB PO SCH ×2 (09:00)
[2017-06-19] MEDS ORDERED: AZITHROMYCIN 250 MG TAB PO SCH (09:00)
[2017-06-19] MEDS ORDERED: COBICISTAT PO SCH (09:00)
[2017-06-19] MEDS ORDERED: EMTRICITABINE PO SCH (09:00)
[2017-06-19] MEDS ORDERED: TENOFOV ALAFENAM PO SCH (09:00)
[2017-06-19] MEDS ORDERED: DARUNAVIR PO SCH (09:00)
[2017-06-19 09:06] VITALS: BP 135/76
[2017-06-19] MEDS: LACTOBACILLUS RHAMNOSUS GG 1 EACH CAP PO SCH (09:08)
[2017-06-19] MEDS: SULFAMETH/TRIMETH DS 800/160MG 1 TAB PO SCH (09:09)
[2017-06-19] MEDS: DOCUSATE 100 MG/10 ML UDC PO SCH (09:09)
[2017-06-19] MEDS: guaiFENesin DM 200/20 MG-10 ML 10 ML UDC PO PRN ×2 (09:10→20:36)
--- NOTE | 2017-06-19 09:12 | NUR ---
ADMINISTERED SCHEDULED MEDICATIONS, PATIENT SWALLOWED WITHOUT DIFFICULTY, PATIENT C/O COUGH AND PAIN, PATIENT ALSO GIVEN PRN COUGH MEDICATIONS AND PRN PAIN MEDICATION. PATIENT'S NEEDS MET AT THIS TIME, BED IN LOW POSITION WITH CALL LIGHT WITHIN REACH.
--- NOTE | 2017-06-19 09:30 | NUR ---
ASSISTED PATIENT TO BSC, OUTPUT OF 1000ML OF MERYL URINE, COLLECTED SPECIMEN FOR URINE CX, DRUG SCREENING THAT WAS ORDERED. PATIENT BACK IN BED, C/O SOB, APPLIED O2 @ 2L VIA NC, PATIENT WAS REPOSITIONED, AND IS RESTING COMFORTABLY NOW, O2 SAT IS 100%, BED IN LOW POSITION WITH CALL LIGHT WITHIN REACH.
[2017-06-19 10:03] LABS: BILIRUBIN,URINE NEGATIVE (NEGATIVE); BLOOD, URINE 3+ (NEGATIVE); LEUKOCYTE ESTERASE ,URINE NEGATIVE (NEGATIVE); NITRITE, URINE NEGATIVE (NEGATIVE); UGLUCOSE NEGATIVE (NEGATIVE)
--- NOTE | 2017-06-19 10:10 | NUR ---
PATIENT SHOWS NO S/S OF ACUTE DISTRESS, PATIENT HAS NO C/O PAIN AT THIS TIME.
[2017-06-19 10:14] LABS: BARBITURATE, URINE NEG. ng/ml (NEG <=200); BENZODIAZEPINE, URINE NEG. ng/mL (NEG <=200); CANNABINOID, URINE NEG. ng/mL (NEG <=50); COCAINE, URINE NEG. ng/mL (NEG <=300); OPIATE, URINE POS. ng/mL (NEG <=2000); PHENCYCLIDINE SCREEN,URINE NEG. ng/mL (NEG <=25)
[2017-06-19 10:56] LABS: APPEARANCE,URINE CLOUDY (CLEAR); COLOR,URINE AMBER (YELLOW)
[2017-06-19 10:57] LABS: RBC,URINE 20-50 /HPF (0-5)
--- NOTE | 2017-06-19 11:30 | NUR ---
PATIENT HAS BEEN SCREENED AND CATEGORIZED HIGH NUTRITION RISK. PATIENT WILL BE SEEN WITHIN 1-2 DAYS OF ADMISSION. 06/19/17 - 06/20/[address]
[2017-06-19] MEDS ORDERED: DESCOVY 200-25MG TABLET PO SCH (11:45)
[2017-06-19] MEDS ORDERED: PREZCOBIX PO SCH (11:50)
--- NOTE | 2017-06-19 11:57 | NUR ---
ADMINISTERED SCHEDULED MEDICATIONS, IV ABX INFUSING WELL. BED IN LOW POSITION, CALL LIGHT WITHIN REACH.
[2017-06-19 12:00] VITALS: BP 112/75
[2017-06-19] MEDS ORDERED: GABAPENTIN 100 MG CAP PO SCH (13:00)
--- NOTE | 2017-06-19 13:08 | NUR ---
PATIENT IV IS NOT PATENT, IT WAS DISCONTINUED WITH CANULA INTACT, NEW IV SUCCESSFULLY ATTEMPTED ON THE LEFT UPPER ARM 22 G.
--- NOTE | 2017-06-19 13:30 | NUR ---
ADMINISTERED SCHEDULED MEDICATIONS, PATIENT C/O 01/16 GENERALIZED PAIN, MORPHINE 1 MG IVP, ALL NEEDS MET AT THIS TIME, BED IN LOW POSITION, CALL LIGHT WITHIN REACH.
[2017-06-19] MEDS ORDERED: FLUCONAZOLE 100 MG TAB PO SCH (14:00)
--- NOTE | 2017-06-19 14:25 | NUR ---
ADMINISTERED SCHEDULED MEDICATIONS, PATIENT SWALLOWED WITHOUT DIFFICULTY. ALL NEEDS MET AT THIS TIME.
--- NOTE | 2017-06-19 15:12 | NUR ---
PATIENT C/O NASAL DRYNESS ADDED HUMIDIFIER
[2017-06-19 16:00] VITALS: BP 124/75
--- NOTE | 2017-06-19 16:00 | NUR ---
06/19/2017 RD INITIAL ASSESSMENT COMPLETED PLEASE REFER TO NUTRITION ASSESSMENT UNDER CARE ACTIVITY FOR ESTIMATED NUTRITIONAL NEEDS. ORAL SUPPLEMENT, BOOST PLUS TID FOOD PREFENCES NOTED PER PT'S REQUEST. NURSING AND DIETARY STAFF TO ENCOURAGE INCREASED PO INTAKE TOLERATED RD TO FOLLOW-UP IN 3-5 DAYS PATIENT IS MODERATE RISK. TAO BA, RD
--- NOTE | 2017-06-19 17:30 | NUR ---
ADMINISTERED SCHEDULED MEDICATIONS, PATIENT IV ABX INFUSING WELL, PATIENT C/O 8/10 GENERALIZED PAIN, ADMINISTERED MORPHINE 1 MG IVP.
[2017-06-19] MEDS ORDERED: BACTRIM IV PER PHARMACY MC PRN (17:50)
[2017-06-19] MEDS: LEVOFLOXACIN 750 MG/D5W PREMIX 150 ML IV SCH (18:53)
--- NOTE | 2017-06-19 19:00 | NUR ---
ADMINISTERED SCHEDULED MEDICATIONS, IV ABX INFUSING WELL AT THIS TIME,
--- NOTE | 2017-06-19 19:35 | NUR ---
PATIENT REPORT GIVEN TO LONG RN AT BEDSIDE, PATIENT ENDORSED IN STABLE CONDITION.
--- NOTE | 2017-06-19 19:36 | NUR ---
RECEIVED REPORT FROM DAY SHIFT RN, PT IS A/OX4, ON 2L O2 VIA NASAL CANNULA. 22G IV TO LEFT AC. PT IS ON BEDREST, SHE AMBULATES WITH ASSISTANCE TO BEDSIDE COMMODE. PT IS VERY WEAK. SKIN IS INTACT. UPDATED BOARD. DISCUSSED PLAN OF CARE WITH PT, PT VERBALIZED UNDERSTANDING. VITAL SIGNS WITHIN NORMAL LIMITS. PT IN STABLE CONDITION, NO SIGNS OF DISTRESS NOTED. BED IN LOWEST POSITION, CALL LIGHT WITHIN REACH. WILL CONTINUE TO MONITOR.
[2017-06-19 20:00] VITALS: BP 102/59
[2017-06-19] MEDS: GABAPENTIN 100 MG CAP PO SCH (20:36)
[2017-06-19] MEDS: ATORVASTATIN 20 MG TAB PO SCH (20:36)
[2017-06-19] MEDS: DEXTROSE 5% IV SCH (20:39)
[2017-06-19] MEDS: TRIMETH IV SCH (20:39)
[2017-06-19] MEDS: SULFAMETH IV SCH (20:39)
--- NOTE | 2017-06-19 20:40 | NUR ---
ADMINISTERED SCHEDULED MEDICATIONS, PT TOLERATED WELL. PT IN STABLE CONDITION, NO SIGNS OF DISTRESS NOTED. BED IN LOWEST POSITION, CALL LIGHT WITHIN REACH. WILL CONTINUE TO MONITOR.
--- NOTE | 2017-06-19 21:50 | NUR ---
PT C/O 10/ GENERALIZED PAIN, MEDICATED WITH MORPHINE PER ORDER, PT TOLERATED WELL. WILL REASSESS FOR MEDICATION EFFECTIVENESS.
[2017-06-20] VITALS (7 sets, daily range): BP systolic 116–138; BP diastolic 60–118
--- NOTE | 2017-06-20 | NUR ---
VITAL SIGNS WITHIN NORMAL LIMITS. PT IN STABLE CONDITION, NO SIGNS OF DISTRESS NOTED. BED IN LOWEST POSITION, CALL LIGHT WITHIN REACH. WILL CONTINUE TO MONITOR.
[2017-06-20] MEDS: MORPHINE SULFATE 2 MG/ML SYR IVP PRN ×3 (03:30→17:15)
--- NOTE | 2017-06-20 04:00 | NUR ---
VITAL SIGNS WITHIN NORMAL LIMITS. PT IN STABLE CONDITION, NO SIGNS OF DISTRESS NOTED. BED IN LOWEST POSITION, CALL LIGHT WITHIN REACH. WILL CONTINUE TO MONITOR.
[2017-06-20] MEDS: DEXTROSE 5% IV SCH ×3 (05:21→20:50)
[2017-06-20] MEDS: SULFAMETH IV SCH ×3 (05:21→20:50)
[2017-06-20] MEDS: TRIMETH IV SCH ×3 (05:21→20:50)
[2017-06-20 07:01] LABS: HEMATOCRIT 35.2 % (36-48); HEMOGLOBIN 11.4 g/dL (12.0-16.0); MEAN CORPUSCULAR HEMOGLOBIN 26 pg (27-31); MEAN CORPUSCULAR HGB CONC 32 g/dL (33-37); MEAN CORPUSCULAR VOLUME 80 fL (80-94); PLATELET COUNT (AUTO) 332 K/uL (140-450); RED BLOOD CELL COUNT(AUTO) 4.42 MIL/uL (4.20-5.40); RED CELL DISTRIBUTION WIDTH 15.4 % (11.6-13.7); WHITE BLOOD COUNT (AUTO) 3.8 K/uL (4.8-10.8)
[2017-06-20] MEDS: ALBUTEROL SULFATE/IPRATROPIU 3 ML SOL IH SCH ×3 (07:06→19:12)
[2017-06-20] MEDS: BUDESONIDE 0.5 MG/2 ML NEBU INH SCH ×2 (07:07→19:12)
[2017-06-20 07:24] LABS: ALBUMIN 2.6 g/dL (3.4-5.0); ANION GAP 10.9 (8-16); CARBON DIOXIDE 30.7 mmol/L (21-32); CREATININE 0.7 mg/dL (0.6-1.3); MAGNESIUM 1.8 mg/dL (1.8-2.4); PHOSPHORUS 2.8 mg/dL (2.5-4.9); POTASSIUM 4.6 mmol/L (3.5-5.1); TOTAL BILIRUBIN 0.1 mg/dL (0.0-1.0)
--- NOTE | 2017-06-20 07:25 | NUR ---
ENDORSED PT IN STABLE CONDITION TO DAY SHIFT NURSE FOR CONTINUITY OF CARE.
--- NOTE | 2017-06-20 07:27 | NUR ---
RECEIVED PATIENT REPORT AT BEDSIDE FROM NIGHT NURSE. PATIENT IS SLEEPING, EASILY AROUSABLE WITH VOICE AND STATES SHE HAS A HEADACHE, DR MONDRAGON AWARE AND IS TO PLACE ORDERS. PATIENT ASSISTED TO BSC AND VOIDED. PATIENT ON TELE MONITOR. SKIN INTACT. PATIENT IS ON O2 @ 2L VIA NC, IV ON THE LEFT AC 22G PATENT AND INTACT. PATIENT WAS EXPLAINED POC FOR TODAY, SAFETY AND FALL PRECAUTIONS IN PLACE AND SHE VERBALIZED UNDERSTANDING OF CARE. BED IN LOW POSITION WITH CALL LIGHT WITHIN REACH.
[2017-06-20] MEDS ORDERED: FLUCONAZOLE 100 MG TAB PO SCH ×2 (09:00)
[2017-06-20] MEDS: GABAPENTIN 100 MG CAP PO SCH ×2 (09:01→20:50)
[2017-06-20] MEDS: DOCUSATE 100 MG/10 ML UDC PO SCH (09:01)
[2017-06-20] MEDS: LACTOBACILLUS RHAMNOSUS GG 1 EACH CAP PO SCH (09:01)
[2017-06-20] MEDS: guaiFENesin DM 200/20 MG-10 ML 10 ML UDC PO PRN (09:03)
[2017-06-20 09:05] LABS: BASOPHILS % (MANUAL) 1 % (0-2); EOSINOPHILS % (MANUAL) 6 % (0-4); LYMPHOCYTES % (MANUAL) 12 % (20-46); MONOCYTES % (MANUAL) 15 % (5-12)
[2017-06-20] MEDS: PREZCOBIX PO SCH (09:14)
[2017-06-20] MEDS: DESCOVY 200-25MG TABLET PO SCH (09:14)
--- NOTE | 2017-06-20 09:16 | NUR ---
ADMINISTERED SCHEDULED MEDICATIONS, ALSO PATIENT C/O COUGH AND WAS GIVEN PRN COUGH MEDICATION. PATIENT SWALLOWED MEDICATIONS WITHOUT DIFFICULTY, PATIENT STATES HEADACHE WENT AWAY ON ITS OWN. ALL NEEDS MET AT THIS TIME.
--- NOTE | 2017-06-20 10:40 | NUR ---
PATIENT IS SLEEPING AND SHOWS NO S/S OF ACUTE DISTRESS AT THIS TIME.
--- NOTE | 2017-06-20 11:00 | NUR ---
I met with Patient to discuss MD recommendations to SNF (snf Facility) and ask patient's if she had any preferences. Patient stated been aware of recommendations and on agreement that she is in need of assistance. Patient also stated not having any preference at this time the only request she has in mind is of getting placed in a SNF located in the area of [place] therefore; it is close for her mother to visit her. I inform her that these radio script writer will pass request to porter sample case and will make great efforts to accommodate her request. patient thank me and porter sample case for the assistance.
[2017-06-20] MEDS ORDERED: KETOROLAC 30 MG/ML VIAL IVP ONE (11:05)
[2017-06-20] MEDS: HYDROcodone/APAP 7.5/325 MG 1 TAB PO PRN (11:24)
--- NOTE | 2017-06-20 11:26 | NUR ---
PATIENT C/O HEADACHE AND GENERALIZED PAIN ON 09/16 AFTER COUGHING, PATIENT WAS GIVEN NORCO 7.5/325MG PO WILL REASSESS PAIN IN ONE HR, DR MONDRAGON WAS NOTIFIED AND IS TO PLACE NEW ORDERS FOR HEADACHE MEDICATION.
--- NOTE | 2017-06-20 12:00 | NUR ---
PATIENT UNABLE TO PROVIDE SPUTUM CX STATES, " NO TENGO FUERSAS PARA TOSER MUCHO Y NO TENGO MUCH FLEMA". PATIENT UNABLE TO PROVIDE A SPUTUM CX FOR ORDERED LAB D/T WEAKNESS AND UNABLE TO COUGH ANY PHLEGM.
--- NOTE | 2017-06-20 13:51 | NUR ---
[phone] THEY CAN TAKE PATIENT IF PATIENT WILL NEED SNF WHEN PATIENT IS READY FOR DISCHARGE. DR. ALANNA JEREZ.
--- NOTE | 2017-06-20 14:03 | NUR ---
PATIENT C/O 10/10 GENERALIZED PAIN, MORPHINE 1 MG IVP WAS GIVEN WILL REASSESS PAIN IN ONE HR. ALL NEEDS MET AT THIS TIME.
--- NOTE | 2017-06-20 16:21 | NUR ---
PHYSICAL THERAPY CO-SIGN The Physical Therapy Progress Notes documented by Clinical Exercise Specialist have been reviewed. Reviewed/Co-Signed by: George Collins PT Documentation Done by: JARAD MONTELONGO DRILL RUNNER HELPER PT LIMITED WITH BEDSIDE EXERCISE ONLY TODAY D/T H/A. Addendum: 06/21/17 at 1022 by George Collins PT Amended: Links added.
--- NOTE | 2017-06-20 17:05 | NUR ---
FAMILY MEMBER DAYANARA EASON AT BEDSIDE REQUESTING INFORMATION ON PATIENT, WITH PATIENT'S APPROVAL, FAMILY MEMBER WAS UPDATED ON PATIENTS CARE.
[2017-06-20] MEDS: PROCHLORPERAZINE 10 MG/2 ML VIAL IVP PRN (17:13)
--- NOTE | 2017-06-20 17:23 | NUR ---
PATIENT C/O PAIN, NAUSEA AND VOMITED HER BOOST THAT SHE WAS DRINKING AND REFUSED ALL OF THE MEAL, MORPHINE 1 MG IVP WAS GIVEN FOR GENERALIZED PAIN OF 10/10, AND PRN NAUSEA MEDICATIONS GIVEN. ALL NEEDS MET AT THIS TIME, BED IN LOW POSITION, WILL CALL LIGHT WITHIN REACH.
[2017-06-20] MEDS: LEVOFLOXACIN 750 MG/D5W PREMIX 150 ML IV SCH (18:22)
--- NOTE | 2017-06-20 18:25 | NUR ---
PATIENT IS RESTING COMFORTABLY AND SHOWS NO S/S OF ACUTE DISTRESS ON O2 @ 2L VIA NC, IV ABX INFUSING WELL. ALL NEEDS MET AT THIS TIME.
--- NOTE | 2017-06-20 19:30 | NUR ---
GAVE PATIENT REPORT AT BEDSIDE TO NIGHT NURSE, PT ENDORSED IN STABLE CONDITION.
--- NOTE | 2017-06-20 19:40 | NUR ---
RECEIVED REPORT FROM DAY SHIFT, PATIENT WAS SLEEPING, BUT EASY TO AROUSE, NO S/S OF DISTRESS NOTED, RESPIRATION EVEN AND UNLABORED, ON NC 2L. IV PATENT AND INTACT. INFORMED PATIENT REGARDING SPUTUM CULTURE, PATIENT VERBALIZED UNDERSTANDING, SPUTUM CUP IS AT THE BEDSIDE, PATIENT DOES NOT HAVE ANY SPUTUM AT THIS TIME. CALL LIGHT WITHIN REACH, SAFETY MEASURE ENSURED, WILL CONTINUE TO MONITOR.
[2017-06-20] MEDS: ATORVASTATIN 20 MG TAB PO SCH (20:50)
--- NOTE | 2017-06-20 20:50 | NUR ---
DUE MEDICATION GIVEN, PATIENT TOLERATED WELL. NO S/S OF DISTRESS NOTED, RESPIRATION EVEN AND UNLABORED, CALL LIGHT WITHIN REACH, SAFETY MEASURE ENSURED, WILL CONTINUE TO MONITOR.
[2017-06-20] MEDS ORDERED: PROCHLORPERAZINE 10 MG/2 ML VIAL IVP PRN (21:00)
--- NOTE | 2017-06-20 22:55 | NUR ---
PATIENT IS SLEEPING, NO S/S OF DISTRESS NOTED, RESPIRATION EVEN AND UNLABORED, CALL LIGHT WITHIN REACH, SAFETY MEASURE ENSURED, WILL CONTINUE TO MONITOR.
[2017-06-21] VITALS (7 sets, daily range): BP systolic 99–117; BP diastolic 54–73
--- NOTE | 2017-06-21 00:19 | NUR ---
PATIENT IS SLEEPING, NO S/S OF DISTRESS NOTED, RESPIRATION EVEN AND UNLABORED, CALL LIGHT WITHIN REACH, SAFETY MEASURE ENSURED, WILL CONTINUE TO MONITOR.
[2017-06-21] MEDS: PROCHLORPERAZINE 10 MG/2 ML VIAL IVP PRN (03:04)
--- NOTE | 2017-06-21 03:16 | NUR ---
PATIENT STATED FEELING NAUSEA. COMPAZINE ADMINISTERED ORDERED. NO S/S OF DISTRESS NOTED, RESPIRATION EVEN AND UNLABORED, ON NC 2L, CALL LIGHT WITHIN REACH, SAFETY MEASURE ENSURED, WILL CONTINUE TO MONITOR.
[2017-06-21] MEDS: DEXTROSE 5% IV SCH ×3 (04:00→20:36)
[2017-06-21] MEDS: TRIMETH IV SCH ×3 (04:00→20:36)
[2017-06-21] MEDS: SULFAMETH IV SCH ×3 (04:00→20:36)
--- NOTE | 2017-06-21 04:00 | NUR ---
DUE MEDICATION GIVEN, PATIENT TOLERATED WELL. WILL CONTINUE TO MONITOR.
--- NOTE | 2017-06-21 07:10 | NUR ---
ENDORSED PLAN OF CARE TO DAY SHIFT, PATIENT IS SLEEPING, RESPIRATION EVEN AND UNLABORED, IN STABLE CONDITION.
[2017-06-21 07:21] LABS: HEMATOCRIT 34.9 % (36-48); HEMOGLOBIN 11.1 g/dL (12.0-16.0); MEAN CORPUSCULAR HEMOGLOBIN 25 pg (27-31); MEAN CORPUSCULAR HGB CONC 32 g/dL (33-37); MEAN CORPUSCULAR VOLUME 80 fL (80-94); PLATELET COUNT (AUTO) 316 K/uL (140-450); RED BLOOD CELL COUNT(AUTO) 4.37 MIL/uL (4.20-5.40); RED CELL DISTRIBUTION WIDTH 15.2 % (11.6-13.7); WHITE BLOOD COUNT (AUTO) 3.8 K/uL (4.8-10.8)
[2017-06-21] MEDS: ALBUTEROL SULFATE/IPRATROPIU 3 ML SOL IH SCH ×3 (07:30→19:47)
[2017-06-21] MEDS: BUDESONIDE 0.5 MG/2 ML NEBU INH SCH ×2 (07:30→19:47)
--- NOTE | 2017-06-21 07:41 | NUR ---
PT WAS ON 2L NC. TX WAS TOLERATED. PLACED PT BACK ON NC 2L. SA02 [id number] HR 86
[2017-06-21 08:12] LABS: EOSINOPHILS % (MANUAL) 5 % (0-4); LYMPHOCYTES % (MANUAL) 15 % (20-46); MONOCYTES % (MANUAL) 5 % (5-12)
[2017-06-21] MEDS: DOCUSATE 100 MG/10 ML UDC PO SCH (09:00)
[2017-06-21] MEDS: GABAPENTIN 100 MG CAP PO SCH ×2 (09:00→20:36)
[2017-06-21] MEDS: LACTOBACILLUS RHAMNOSUS GG 1 EACH CAP PO SCH (09:01)
[2017-06-21] MEDS: PREZCOBIX PO SCH (09:01)
[2017-06-21] MEDS: DESCOVY 200-25MG TABLET PO SCH (09:01)
[2017-06-21 09:15] LABS: ANION GAP 8.8 (8-16); CARBON DIOXIDE 32.6 mmol/L (21-32); CREATININE 0.9 mg/dL (0.6-1.3); POTASSIUM 4.4 mmol/L (3.5-5.1)
[2017-06-21 09:21] LABS: MAGNESIUM 1.8 mg/dL (1.8-2.4); PHOSPHORUS 3.2 mg/dL (2.5-4.9)
[2017-06-21] MEDS: LEVOFLOXACIN 750 MG/D5W PREMIX 150 ML IV SCH (18:30)
--- NOTE | 2017-06-21 19:32 | NUR ---
RECEIVED REPORT FROM DAY SHIFT RN PHYLLIS, PATIENT RESTING IN BED, NO S/S OF DISTRESS NOTED, RESPIRATION EVEN AND UNLABORED, ON NC 2L. IV PATENT AND INTACT, FLUSHED WITH 10 CC NS. PLAN OF CARE DISCUSSED, PATIENT VERBALIZED UNDERSTANDING. CALL LIGHT WITHIN REACH, SAFETY MEASURE ENSURED, WILL CONTINUE TO MONITOR.
--- NOTE | 2017-06-21 19:37 | NUR ---
patient remain stabled throughout shift. report given to oncoming nurse.
[2017-06-21] MEDS: ATORVASTATIN 20 MG TAB PO SCH (20:36)
[2017-06-21] MEDS: HYDROcodone/APAP 7.5/325 MG 1 TAB PO PRN (20:36)
--- NOTE | 2017-06-21 20:47 | NUR ---
DUE MEDICATION GIVEN, PATIENT TOLERATED WELL. NO S/S OF DISTRESS NOTED ,WILL CONTINUE TO MONITOR.
--- NOTE | 2017-06-21 22:30 | NUR ---
NO SPUTUM COLLECTED YET, PATIENT IS AWARE OF SPUTUM CULTURE.
--- NOTE | 2017-06-22 00:09 | NUR ---
PATIENT WAS SLEEPING, EASY TO AROUSE, VITAL SIGNS STABLE, NO S/S OF DISTRESS NOTED, RESPIRATION EVEN AND UNLABORED, CALL LIGHT WITHIN REACH, SAFETY MEASURE ENSURED, WILL CONTINUE TO MONITOR.
--- NOTE | 2017-06-22 02:10 | NUR ---
NO CHANGE IN CONDITION, PATIENT IS SLEEPING, NO S/S OF DISTRESS NOTED, RESPIRATION EVEN AND UNLABORED, CALL LIGHT WITHIN REACH, SAFETY MEASURE ENSURED, WILL CONTINUE TO MONITOR.
[2017-06-22 04:00] VITALS: BP 112/72
[2017-06-22] MEDS: SULFAMETH IV SCH (04:23)
[2017-06-22] MEDS: DEXTROSE 5% IV SCH (04:23)
[2017-06-22] MEDS: TRIMETH IV SCH (04:23)
--- NOTE | 2017-06-22 04:30 | NUR ---
DUE MEDICATION GIVEN, PATIENT TOLERATED WELL. NO S/S OF DISTRESS NOTED, RESPIRATION EVEN AND UNLABORED, CALL LIGHT WITHIN REACH, SAFETY MEASURE ENSURED, WILL CONTINUE TO MONITOR.
[2017-06-22 07:14] LABS: HEMATOCRIT 34.9 % (36-48); HEMOGLOBIN 11.1 g/dL (12.0-16.0); MEAN CORPUSCULAR HEMOGLOBIN 26 pg (27-31); MEAN CORPUSCULAR HGB CONC 32 g/dL (33-37); MEAN CORPUSCULAR VOLUME 80 fL (80-94); PLATELET COUNT (AUTO) 314 K/uL (140-450); RED BLOOD CELL COUNT(AUTO) 4.36 MIL/uL (4.20-5.40); RED CELL DISTRIBUTION WIDTH 14.7 % (11.6-13.7); WHITE BLOOD COUNT (AUTO) 3.1 K/uL (4.8-10.8)
--- NOTE | 2017-06-22 07:15 | NUR ---
ENDORSED PLAN OF CARE TO DAY SHIFT RN, PATIENT IS IN STABLE CONDITION.
--- NOTE | 2017-06-22 07:16 | NUR ---
RECEIVED REPORT FROM LADLE PULLER NURSE FAYE AT BEDSIDE FOR CONTINUITY OF CARE. PT IS AWAKE AND ORIENTED X4. INTRODUCED SELF AND UPDATED BOARD. PT ON O2 NC 2L/MIN, O2 SAT 98%. DRY NON-PRODUCTIVE COUGH PRESENT. INFORMED PT NEED FOR SPUTUM CULTURE. PT STATES SHE HAS NO SPUTUM. LUNG SOUNDS DIMINISHED. NO SIGNS OF RESPIRATORY DISTRESS. SKIN INTACT. BED IN LOW POSITION, WHEELS LOCKED, CALL LIGHT WITHIN REACH. WILL CONTINUE TO MONITOR.
[2017-06-22 07:20] LABS: ANION GAP 5.2 (8-16); CARBON DIOXIDE 37.4 mmol/L (21-32); CREATININE 0.9 mg/dL (0.6-1.3); POTASSIUM 4.6 mmol/L (3.5-5.1)
[2017-06-22 07:21] LABS: PHOSPHORUS 3.1 mg/dL (2.5-4.9)
[2017-06-22] MEDS: BUDESONIDE 0.5 MG/2 ML NEBU INH SCH (07:26)
[2017-06-22] MEDS: ALBUTEROL SULFATE/IPRATROPIU 3 ML SOL IH SCH ×2 (07:26→13:00)
[2017-06-22 08:00] VITALS: BP 113/64
[2017-06-22 08:16] LABS: EOSINOPHILS % (MANUAL) 5 % (0-4); LYMPHOCYTES % (MANUAL) 13 % (20-46); MONOCYTES % (MANUAL) 14 % (5-12)
[2017-06-22] MEDS: GABAPENTIN 100 MG CAP PO SCH (08:38)
[2017-06-22] MEDS: PREZCOBIX PO SCH (08:38)
[2017-06-22] MEDS: DESCOVY 200-25MG TABLET PO SCH (08:38)
[2017-06-22] MEDS: DOCUSATE 100 MG/10 ML UDC PO SCH (08:38)
[2017-06-22] MEDS: LACTOBACILLUS RHAMNOSUS GG 1 EACH CAP PO SCH (08:38)
[2017-06-22] MEDS ORDERED: FLUCONAZOLE 100 MG TAB PO SCH (09:00)
--- NOTE | 2017-06-22 09:31 | NUR ---
CM ORDER FAXED SNF ORDER TO [facility] [phone] AND SPOKE WITH BETHANY WHO SAID THAT THEY ARE ACCEPTING THE PATIENT AND WILL GO TO [address] ANGELA, NUMBER TO CALL FOR REPORT [phone]. PER BETHANY, [facility] WILL ARRANGE PATIENT'S TRANSPORT GOING TO SNF WITH MAURIZIO, MONOTYPIST AT NOON TODAY. JUNE MORALES AWARE.
[2017-06-22] MEDS ORDERED: LEVO750T2 IV (09:35)
[2017-06-22] MEDS ORDERED: SULF-59 PO ×3 (10:17→10:23)
--- NOTE | 2017-06-22 11:23 | NUR ---
CALLED [facility] AND GAVE REPORT TO TISH CARMEN. GAVE CALL BACK NUMBER AND MACHINE PRESERVATIVE FILLER TIME 12PM BY MAURIZIO.
--- NOTE | 2017-06-22 11:24 | NUR ---
GAVE PT D/C FORMS AND TRANSFER INFORMATION TO [facility]. GAVE INSTRUCTIONS, RX, LABS, AND EDUCATION MATERIAL PRINTED IN BENINESE. PT VERBALIZED UNDERSTANDING AND SIGNED FORMS. MADE AWARE OF PODIATRY DOCTOR TIME. KEPT IV TO L AC 20# SL. SITE INTACT.
--- NOTE | 2017-06-22 11:50 | NUR ---
PICKED UP HOME MEDS FROM PHARMACY AND DELIVERED BACK TO PT.
[2017-06-22 12:00] VITALS: BP 115/75
--- NOTE | 2017-06-22 13:00 | NUR ---
PT D/C FROM UNIT AND PICKED UP BY TRANSPORTERS. REPORT GIVEN. PT CHANGED IN OWN CLOTHES AND LEFT WITH ALL PERSONAL BELONGINGS, HOME MEDS, AND INSTRUCTIONS. LEFT IV TO L AC 22G SL PER [facility] REQUEST. REMOVED ID BANDS AND TELE MONITOR. PT LEFT VIA GURNEY IN STABLE CONDITION.
--- NOTE | 2017-06-22 13:35 | NUR ---
MEDS RETURNED PT DISCHARGED
[2017-06-25] MEDS ORDERED: AZITHROMYCIN 600 MG PO SCH (09:00)
[2017-06-28] MEDS ORDERED: AZITHROMYCIN SUSP 200 MG/5 ML PO SCH (09:00)
== END 2017-06-22 13:00 | DRG 974 ==
LOC: MED 14:41 → MTU 17:04
PROVIDERS: ADMIT Family Medicine Sports Medicine; ATTEND Family Medicine Sports Medicine
DX: B20 Human immunodeficiency virus [HIV] disease (principal); A41.9 Sepsis, unspecified organism; J96.01 Acute respiratory failure with hypoxia; E43 Unspecified severe protein-calorie malnutrition; J18.9 Pneumonia, unspecified organism; E87.1 Hypo-osmolality and hyponatremia; E87.8 Other disorders of electrolyte and fluid balance, not elsewhere classified; B37.9 Candidiasis, unspecified; Z68.1 Body mass index [BMI] 19.9 or less, adult; Z85.118 Personal history of other malignant neoplasm of bronchus and lung; Z88.5 Allergy status to narcotic agent; Z88.8 Allergy status to other drugs, medicaments and biological substances; E78.5 Hyperlipidemia, unspecified; D50.9 Iron deficiency anemia, unspecified; M62.50 Muscle wasting and atrophy, not elsewhere classified, unspecified site; R31.9 Hematuria, unspecified; G62.9 Polyneuropathy, unspecified
CPT/HCPCS: 36415; 36600; 70450; 71045; 76700; 76856; 80048; 80053; 80305; 81001; 82140; 82150; 82550; 82553; 82803; 83540; 83605; 83615; 83690; 83735; 83874; 83880; 84100; 84484; 85025; 85610; 85730; 86360; 87040; 87081; 87086; 87536; 87804; 93005; 94640; 97110; 97116; 97140; 97530; 99291; J0780; J1885; J1956; J2270; J2543; J3490; J7030; J7060; J7613; J7620; J7626; J7644; Q0092

== ENCOUNTER 2017-10-26 12:32 | Inpatient (IN) | payer OTHER, MEDICAID ==
[~2017-10-26] VITALS: Ht 157.5 cm; Wt 44.9 kg
[~2017-10-26 12:32] MED LIST changes: -ACET-2863 PO; -LACT10CA PO; -LEVO500T2 PO; +LEVO750T2 IV; -METH4TAB3 PO; -ONDA4TAB PO; -ROB PO; +SULF-59 PO; -SULF1TAB12 PO
[2017-10-26 12:37] VITALS: BP 129/94
--- NOTE | 2017-10-26 12:40 | NUR ---
PATIENT SAÚLA FROM DR CLINIC FOR SHORTNESS OF BREATH. PATIENT HAS HX OF LUNG CANCER, AIDS, AND PNEUMONIA. PATIENT COMPLAINS OF SHORTNESS OF BREATH, CHEST PAIN, AND HEADACHE. PATIENT VSS STABLE, PAIN 10/10. BED IN LOWEST POSITION, HOB ELEVATED. 2L O2 APPLIED VIA NASAL CANULA. ED MD MADE AWARE OF PATIENT STATUS.
[2017-10-26 13:56] LABS: BASOPHILS # (AUTO) 0.1 K/uL (0.00-0.22); BASOPHILS % (AUTO) 0.9 % (0.0-2.0); EOSINOPHILS # (AUTO) 0.2 K/uL (0-0.4); EOSINOPHILS % (AUTO) 3.4 % (0.0-4.0); HEMATOCRIT 36.8 % (36-48); HEMOGLOBIN 11.8 g/dL (12.0-16.0); LYMPHOCYTES # (AUTO) 0.6 K/uL (2.5-16.5); LYMPHOCYTES % (AUTO) 10.3 % (20.5-51.1); MEAN CORPUSCULAR HEMOGLOBIN 29 pg (27-31); MEAN CORPUSCULAR HGB CONC 32 g/dL (33-37); MEAN CORPUSCULAR VOLUME 89.5 fL (80-94); MONOCYTES # (AUTO) 0.9 K/uL (0.8-1.0); MONOCYTES % (AUTO) 15.4 % (1.7-9.3); NEUTROPHILS # (AUTO) 4.3 K/uL (1.8-7.7); PLATELET COUNT (AUTO) 424 K/uL (140-450); RED BLOOD CELL COUNT(AUTO) 4.11 MIL/uL (4.20-5.40); RED CELL DISTRIBUTION WIDTH 14.6 % (11.6-13.7); WHITE BLOOD COUNT (AUTO) 6.1 K/uL (4.8-10.8)
--- NOTE | 2017-10-26 14:00 | NUR ---
Patient appears to be resting comfortably in bed. Vital Signs within normal limits. Respirations even and unlabored.
[2017-10-26 14:23] LABS: PROTHROMBIN TIME 10.3 secs (10.8-13.4)
[2017-10-26 14:51] LABS: ANION GAP 4.2 (8-16); CARBON DIOXIDE 38.1 mmol/L (21-32); CREATININE 0.7 mg/dL (0.6-1.3); POTASSIUM 4.3 mmol/L (3.5-5.1)
[2017-10-26 14:57] LABS: TOTAL BILIRUBIN 0.1 mg/dL (0.0-1.0)
--- NOTE | 2017-10-26 16:00 | NUR ---
Patient appears to be resting comfortably in bed. Vital Signs within normal limits. Respirations even and unlabored.
[2017-10-26] MEDS ORDERED: SULFAMETH/TRIMETH DS 800/160MG 1 TAB PO ONE (16:05)
[2017-10-26] MEDS ORDERED: LEVOFLOXACIN 750 MG/D5W PREMIX 150 ML IV ONE (16:05)
[2017-10-26] MEDS ORDERED: DEXT 5% / NACL 0.45% 1,000 ML IV SCH (17:02)
[2017-10-26] MEDS ORDERED: ZOLPIDEM 5 MG TAB PO PRN (17:05)
[2017-10-26] MEDS ORDERED: DOCUSATE SODIUM 100 MG GELCAP PO PRN (17:05)
[2017-10-26] MEDS ORDERED: LORazepam 2 MG/ML VIAL IM/IVP PRN (17:05)
[2017-10-26] MEDS ORDERED: ALBUTEROL 0.083% 2.5 MG/3 ML NEBU INH PRN (17:15)
[2017-10-26] MEDS ORDERED: DEXTROMETHORP PO SCH (17:25)
[2017-10-26] MEDS ORDERED: CHLORPHENIRAMINE PO SCH (17:25)
[2017-10-26] MEDS ORDERED: BACTRIM IV PER PHARMACY MC PRN (17:45)
[2017-10-26] MEDS ORDERED: guaiFENesin DM 200/20 MG-10 ML 10 ML UDC PO PRN (17:50)
--- NOTE | 2017-10-26 17:53 | NUR ---
Patient will be admitted to care of DR NELSON. Admited to TELE. Will go to room 117. Belongings list completed. Report to
--- NOTE | 2017-10-26 17:53 | NUR ---
RECEIVED PATIENT FROM [place] NURSE. RECEIVED REPORT ON PATIENT. PATIENT IS ALERT AND ORIENTED X3 AT THIS TIME. PATIENT HAS AN IV NOTED ON HER LEFT AC 22G FINISHING UP LEVAQUIN ANTIBIOTIC. PATIENT ON 2L O2 VIA NC. NO DISTRESS NOTED AT THIS TIME. PATIENT PRESENTS WITH A COUGH. PATIENT COMPLAINS OF PAIN. WILL MEDICATE PATIENT. LOWERED BED OF PATIENT. CALL LIGHT WITHIN REACH OF PATIENT. VITAL SIGNS ARE STABLE AT 98.3, 119/87, 95 HR, 100% O2 SATURATION. WILL CONTINUE TO MONITOR PATIENT.
[2017-10-26 17:58] LABS: MAGNESIUM 1.9 mg/dL (1.8-2.4); PHOSPHORUS 3.6 mg/dL (2.5-4.9); THYROID STIMULATING HORMONE 1.85 uIU/mL (0.34-3.74)
[2017-10-26] MEDS: MORPHINE SULFATE 2 MG/ML SYR IVP PRN ×2 (18:21→23:50)
[2017-10-26] MEDS ORDERED: ALBUTEROL SULFATE/IPRATROPIU 3 ML SOL IH PRN (18:40)
--- NOTE | 2017-10-26 19:08 | NUR ---
GAVE REPORT TO NIGHTSHIFT NURSE. PATIENT IN STABLE CONDITION.
--- NOTE | 2017-10-26 19:09 | NUR ---
PATIENT REPORT RECEIVED FROM MORNING NURSE AT BEDSIDE. PATIENT AWAKE, ALERT AND ORIENTED. LUXEMBOURGER SPEAKING BUT CAN UNDERSTAND SOME ARGENTINE. NO SIGNS AND SYMPTOMS OF DISTRESS NOTED. NO C/O PAIN AT THIS TIME. PATIENT ON O2 2L NC. IV SITE NOTED ON LEFT AC, IV FLUID INFUSING WELL. BED IN LOWEST POSITION SIDE RAILS UP AND CALL LIGHT WITHIN REACH. WILL CONTINUE TO MONITOR
[2017-10-26] MEDS: BUDESONIDE 0.5 MG/2 ML NEBU INH SCH (19:17)
[2017-10-26] MEDS: ALBUTEROL SULFATE/IPRATROPIU 3 ML SOL IH SCH (19:17)
[2017-10-26 19:30] VITALS: BP 119/80
--- NOTE | 2017-10-26 20:00 | NUR ---
USED [employer] PHONE TO ASK PATIENT ASSESSMENT QUESTIONS. TRAY SERVER #: [id number]
[2017-10-26] MEDS: NACL 0.9% 1,000 ML IV SCH (20:30)
[2017-10-26] MEDS ORDERED: SULFAMETH/TRIMETH 400/80MG 1 TAB PO SCH (21:00)
--- NOTE | 2017-10-26 21:30 | NUR ---
ASSISTED PATIENT WITH BEDPAN. PATIENT VOIDED. PERICARE DONE. PATIENT TOLERATED WELL. WILL CONTINUE TO MONITOR
[2017-10-26] MEDS: SULFAMETH IV SCH (23:29)
[2017-10-26] MEDS: TRIMETH IV SCH (23:29)
[2017-10-26] MEDS: DEXTROSE 5% IV SCH (23:29)
--- NOTE | 2017-10-26 23:40 | NUR ---
CHECKED ON PATIENT. PATIENT IS ASLEEP. NO SIGNS AND SYMPTOMS OF DISTRESS NOTED. BREATHING EVEN AND UNLABORED. WILL CONTINUE TO MONITOR
--- NOTE | 2017-10-26 23:53 | NUR ---
PATIENT WOKE UP. MOANING IN PAIN. WILL MEDICATE FOR PAIN ORDERED.
[2017-10-27] VITALS: BP 124/72
[2017-10-27] MEDS ORDERED: PIPERACILLIN/TAZOBACTAM 4.5 GM in DEXTROSE 5% 100 ML IV SCH ×2
[2017-10-27] MEDS ORDERED: cefTRIAXone 1,000 MG VIAL ONE (03:56)
[2017-10-27 04:00] VITALS: BP 135/87
[2017-10-27] MEDS ORDERED: LEVOFLOXACIN 750 MG/D5W PREMIX 150 ML IV ONE (04:00)
--- NOTE | 2017-10-27 04:00 | NUR ---
CHECKED ON PATIENT. PATIENT IS ASLEEP. NO SIGNS AND SYMPTOMS OF DISTRESS NOTED. BREATHING EVEN AND UNLABORED. WILL CONTINUE TO MONITOR
[2017-10-27] MEDS: MORPHINE SULFATE 2 MG/ML SYR IVP PRN ×2 (04:48→19:46)
[2017-10-27] MEDS: TRIMETH IV SCH ×3 (05:01→20:00)
[2017-10-27] MEDS: DEXTROSE 5% IV SCH ×3 (05:01→20:00)
[2017-10-27] MEDS: SULFAMETH IV SCH ×3 (05:01→20:00)
--- NOTE | 2017-10-27 06:30 | NUR ---
NOTIFIED DR. EARL OF PATIENT'S HEADACHES
--- NOTE | 2017-10-27 06:40 | NUR ---
PATIENT HAS BEEN SCREENED AND CATEGORIZED HIGH NUTRITION RISK. PATIENT WILL BE SEEN WITHIN 1-2 DAYS OF ADMISSION. 10/27/17-10/28/17 JADA TERRY MS, RDN
[2017-10-27] MEDS: ALBUTEROL SULFATE/IPRATROPIU 3 ML SOL IH SCH ×3 (07:01→18:52)
[2017-10-27] MEDS: BUDESONIDE 0.5 MG/2 ML NEBU INH SCH ×2 (07:09→19:30)
--- NOTE | 2017-10-27 07:23 | NUR ---
PATIENT REPORT GIVEN TO MORNING NURSE AT BEDSIDE. PATIENT IS IN STABLE CONDITION
--- NOTE | 2017-10-27 07:24 | NUR ---
REPORT RECEIVED FROM [employer] NURSE. PATIENT AWAKE, ALERT, ORIENTED X4. SITTING IN BED COMFORTABLY IN NO ACUTE DISTRESS. RESPIRATORY UNLABORED. SKIN WARM AND DRY, COLOR WITHIN NORMAL LIMITS. PLAN OF CARE REVIEWED. DR. ROSENBERG AT BEDSIDE TALKING TO PATIENT. PATIENT COMPLAINING OF HEADACHE 01/16, MD AWARE. CALL LIGHT WITHIN REACH, BED IN LOWEST POSITION, 2 SIDE RAILS UP. WILL CONTINUE TO MONITOR.
[2017-10-27 08:00] VITALS: BP 131/84
[2017-10-27] MEDS ORDERED: KETOROLAC 30 MG/ML VIAL IVP SCH (08:00)
[2017-10-27 08:14] LABS: CHOL/HDL RATIO 3.7 (1-4.5)
[2017-10-27] MEDS: LACTOBACILLUS RHAMNOSUS GG 1 EACH CAP PO SCH (08:33)
--- NOTE | 2017-10-27 08:33 | NUR ---
AM MEDS GIVEN. PATIENT TOLERATED WELL. PRN TORDOL GIVEN FOR 10/10 HEADACHE. WILL REEVALUATE IN 30 MIN. WILL CONTINUE TO MONITOR.
[2017-10-27] MEDS: ATORVASTATIN 20 MG TAB PO SCH (08:34)
[2017-10-27] MEDS: NYSTATIN 500 MU/5 ML UDC PO SCH ×4 (08:34→20:00)
[2017-10-27] MEDS ORDERED: NON-FORMULARY ITEM (Lactobacillus Rhamnosus GG (Culturelle) 10 Billion) PO SCH (09:00)
[2017-10-27] MEDS ORDERED: AZITHROMYCIN 250 MG TAB PO SCH (09:00)
[2017-10-27 09:59] LABS: BILIRUBIN,URINE NEGATIVE (NEGATIVE); BLOOD, URINE TRACE-I (NEGATIVE); COLOR,URINE YELLOW (YELLOW); LEUKOCYTE ESTERASE ,URINE NEGATIVE (NEGATIVE); NITRITE, URINE NEGATIVE (NEGATIVE); PH,URINE 6.5 (5.0-9.0); UGLUCOSE NEGATIVE (NEGATIVE)
[2017-10-27 10:09] LABS: BARBITURATE, URINE NEG. ng/ml (NEG <=200); BENZODIAZEPINE, URINE NEG. ng/mL (NEG <=200); CANNABINOID, URINE NEG. ng/mL (NEG <=50); COCAINE, URINE NEG. ng/mL (NEG <=300); OPIATE, URINE POS. ng/mL (NEG <=2000); PHENCYCLIDINE SCREEN,URINE NEG. ng/mL (NEG <=25)
--- NOTE | 2017-10-27 10:14 | NUR ---
10/27/17 RD INITIAL ASSESSMENT COMPLETED PLEASE REFER TO NUTRITION ASSESSMENT UNDER CARE ACTIVITY FOR ESTIMATED NUTRITIONAL NEEDS. RD RECOMMENDATIONS: 1. CONTINUE ON REGULAR DIET TOLERATED. 2. CONSULT RDN PRN. 5. RD WILL F/U 2-3 DAYS; HIGH RISK. JADA TERRY MS, RDN
[2017-10-27 10:21] LABS: APPEARANCE,URINE SLIGHTLY HAZY (CLEAR)
[2017-10-27 10:23] LABS: WBC,URINE 0-5 (RARE) /HPF (0-5)
[2017-10-27 10:24] LABS: RBC,URINE 0-5 (RARE) /HPF (0-5)
--- NOTE | 2017-10-27 10:46 | NUR ---
PT RETURNED FROM CT SCAN
[2017-10-27] MEDS: NACL 0.9% 1,000 ML IV SCH (11:30)
[2017-10-27 12:00] VITALS: BP 115/70
--- NOTE | 2017-10-27 12:40 | NUR ---
CALLED DR DOUGLAS CARR [phone] REVIEWED ABG SAMPLE REPORT NO NEW ORDERS
--- NOTE | 2017-10-27 13:00 | NUR ---
AMBULATED WITH PATIENT ON ROOM AIR 20 FEET WITH ASSIST. SLOW STEADY GAIT. O2 DROPPED TO 82% ON ROOM AIR. PATIENT BACK IN BED RESTING. NEW 20G IV STARTED TO RIGHT AC FOR CAT SCAN WITH CONTRAST. CLINICAL PHARMACOLOGIST AWARE. PATIENT READY FOR CT. WILL CONTINUE TO MONITOR.
[2017-10-27] MEDS ORDERED: BACTRIM IV PER PHARMACY MC PRN (14:00)
--- NOTE | 2017-10-27 15:00 | NUR ---
HUMAN SERVICES PROGRAM SPECIALIST ASSISTED PATIENT TO MOVE TO ROOM 118. PATIENT NOW IN BED RESTING COMFORTABLY. NOT IN ANY APPARENT DISTRESS. WILL CONTINUE TO MONITOR.
[2017-10-27 16:00] VITALS: BP 127/78
[2017-10-27] MEDS ORDERED: LEVOFLOXACIN 750 MG/D5W PREMIX 150 ML IV SCH (17:00)
--- NOTE | 2017-10-27 18:00 | NUR ---
PATIENT COMPLAINT OF HEADACHE, PAIN 01/16. NOTIFIED. AWAITING TORDOL ORDER
--- NOTE | 2017-10-27 19:22 | NUR ---
REPORT GIVEN TO NIGHT RN, PT IN STABLE CONDITION
--- NOTE | 2017-10-27 19:23 | NUR ---
PATIENT REPORT RECEIVED FROM MORNING NURSE AT BEDSIDE. PATIENT AWAKE, ALERT AND ORIENTED. NO SIGNS AND SYMPTOMS OF DISTRESS NOTED. NO C/O PAIN AT THIS TIME. PATIENT ON O2 2L NC. IV SITE NOTED ON LEFT AC, IV FLUID INFUSING WELL. RIGHT AC IV SITE ALSO NOTED. BED IN LOWEST POSITION SIDE RAILS UP AND CALL LIGHT WITHIN REACH. WILL CONTINUE TO MONITOR
[2017-10-27 20:00] VITALS: BP 123/77
--- NOTE | 2017-10-27 20:30 | NUR ---
RADIOLOGY CAME TO FARM APPRAISER PATIENT FOR CT ANGIOGRAM. ENGINEER STEAM SAID. IV SITE ON RIGHT AC DOES NOT FLUSH WELL ENOUGH. WILL TRY TO INSERT NEW LINE.
--- NOTE | 2017-10-27 22:30 | NUR ---
IV SITE IN RIGHT AC ATTEMPTED SEVERAL TIMES BUT UNSUCCESSFUL. WILL TRY AGAIN LATER
[2017-10-28] VITALS: BP 128/77
[2017-10-28] MEDS: MORPHINE SULFATE 2 MG/ML SYR IVP PRN (02:00)
--- NOTE | 2017-10-28 02:40 | NUR ---
IV SITE INSERTED IN LEFT FOREARM BY WATER POLLUTION CONTROL INSPECTOR ACOSTA. PATIENT TOLERATED WELL.
--- NOTE | 2017-10-28 03:40 | NUR ---
NOTIFIED RADIOLOGY THAT PATIENT NOW HAS 2 IV SITES. LEFT AC 20 GAUGE AND RIGHT FOREARM 20GAUGE. MARJORIE SAID HE IS STILL DOING PROCEDURES IN ER AND THAT HE WILL GET TO THE PATIENT SOON HE CAN
[2017-10-28 04:00] VITALS: BP 130/78
[2017-10-28] MEDS: NACL 0.9% 1,000 ML IV SCH ×2 (04:10→20:30)
--- NOTE | 2017-10-28 05:21 | NUR ---
TALKED TO TO MARJORIE IN CT REGARDING ORDER FOR CT, PER MARJORIE HE IS STILL DOING ER PT AT THIS TIME,
[2017-10-28] MEDS: HYDROcodone/APAP 5/325 MG 1 TAB TAB PO PRN ×2 (05:25→16:46)
[2017-10-28] MEDS: TRIMETH IV SCH ×3 (06:15→20:06)
[2017-10-28] MEDS: DEXTROSE 5% IV SCH ×3 (06:15→20:06)
[2017-10-28] MEDS: SULFAMETH IV SCH ×3 (06:15→20:06)
[2017-10-28] MEDS: ALBUTEROL SULFATE/IPRATROPIU 3 ML SOL IH SCH ×3 (06:55→18:52)
[2017-10-28 06:57] LABS: ANION GAP 8.3 (8-16); CARBON DIOXIDE 31.9 mmol/L (21-32); CREATININE 0.8 mg/dL (0.6-1.3); POTASSIUM 4.2 mmol/L (3.5-5.1)
[2017-10-28] MEDS: BUDESONIDE 0.5 MG/2 ML NEBU INH SCH ×2 (07:04→18:52)
[2017-10-28 07:05] LABS: MAGNESIUM 1.8 mg/dL (1.8-2.4); PHOSPHORUS 3.6 mg/dL (2.5-4.9)
--- NOTE | 2017-10-28 07:17 | NUR ---
PATIENT REPORT GIVEN TO MORNING NURSE AT BEDSIDE FOR CONTINUITY OF CARE. PATIENT IS IN STABLE CONDITION
--- NOTE | 2017-10-28 07:20 | NUR ---
REPORT RECEIVED FROM ASSOCIATE MARKETING MANAGER NURSE, PT RESTING QUIETLY IN NAD, RESP EVEN UNLABORED, SKIN WARM DRY COLOR WNL, PLAN OF CARE REVIEWED, ALL SAFETY MEASURES IN PLACE, WILL CONTINUE TO MONITOR,
[2017-10-28 07:34] LABS: HEMOGLOBIN 11.1 g/dL (12.0-16.0); LYMPHOCYTES % (AUTO) 10.3 % (20.5-51.1); MEAN CORPUSCULAR HEMOGLOBIN 29 pg (27-31); MEAN CORPUSCULAR HGB CONC 33 g/dL (33-37); MEAN CORPUSCULAR VOLUME 90.3 fL (80-94); NEUTROPHILS % (AUTO) 72.5 % (42.2-75.2); PLATELET COUNT (AUTO) 352 K/uL (140-450); RED BLOOD CELL COUNT(AUTO) 3.77 MIL/uL (4.20-5.40); RED CELL DISTRIBUTION WIDTH 13.4 % (11.6-13.7); WHITE BLOOD COUNT (AUTO) 4.8 K/uL (4.8-10.8)
[2017-10-28 07:35] LABS: BASOPHILS % (AUTO) 0.7 % (0.0-2.0); EOSINOPHILS # (AUTO) 0.2 K/uL (0-0.4); EOSINOPHILS % (AUTO) 4.2 % (0.0-4.0); LYMPHOCYTES # (AUTO) 0.5 K/uL (2.5-16.5); MONOCYTES # (AUTO) 0.6 K/uL (0.8-1.0); MONOCYTES % (AUTO) 12.3 % (1.7-9.3); NEUTROPHILS # (AUTO) 3.5 K/uL (1.8-7.7)
[2017-10-28 08:00] VITALS: BP 121/77
--- NOTE | 2017-10-28 08:20 | NUR ---
PT TO CT
[2017-10-28] MEDS: NYSTATIN 500 MU/5 ML UDC PO SCH ×4 (10:06→20:05)
[2017-10-28] MEDS: LACTOBACILLUS RHAMNOSUS GG 1 EACH CAP PO SCH (10:07)
--- NOTE | 2017-10-28 11:25 | NUR ---
DR KIM AT BEDSIDE
[2017-10-28] MEDS: ATORVASTATIN 20 MG TAB PO SCH ×2 (11:37→11:43)
[2017-10-28] MEDS: ACETAMINOPHEN 325 MG TAB PO PRN ×2 (11:43→20:18)
--- NOTE | 2017-10-28 11:43 | NUR ---
PT C/O FRITZ, TYLENOL GIVEN PER PRN ORDER.
--- NOTE | 2017-10-28 11:47 | NUR ---
DARA REPORTED TO DR KIM
[2017-10-28] MEDS: ONDANSETRON 4 MG/2 ML VIAL IM/IVP PRN (11:50)
[2017-10-28 12:00] VITALS: BP 134/86
--- NOTE | 2017-10-28 13:50 | NUR ---
PT'S MOTHER BROUGHT IN HER HIV MEDS, MEDS TAKEN TO PHARMACY BY DR UNDERWOOD
[2017-10-28 16:00] VITALS: BP 121/70
--- NOTE | 2017-10-28 16:46 | NUR ---
PT C/O FRITZ 01/16, NORCO GIVEN PER PRN ORDER, IVF INFUSING WELL, IV SITE CLEAR, PT DENIES N/V, WILL CONTINUE TO MONITOR
--- NOTE | 2017-10-28 19:20 | NUR ---
REPORT GIVEN TO BAND PRESSER NURSE, PT RESTING QUIETLY IN NAD
--- NOTE | 2017-10-28 19:21 | NUR ---
PATIENT REPORT RECEIVED FROM MORNING NURSE AT BEDSIDE. PATIENT IS AWAKE, ALERT AND ORIENTED. NO SIGNS AND SYMPTOMS OF DISTRESS NOTED. IV SITE NOTED ON LEFT AC, SALINE LOCKED. IV SITE ALSO NOTED ON RIGHT FOREARM, IV FLUID INFUSING WELL. PLAN OF CARE DISCUSSED WITH PATIENT. PATIENT VERBALIZED UNDERSTANDING. SAFETY PRECAUTIONS IN PLACE. BED IN LOWEST POSITION, SIDE RAILS UP AND CALL LIGHT WITHIN REACH. WILL CONTINUE TO MONITOR Addendum: 10/28/17 at 2226 by Leroy Spivey RN ON O2 2L NC
[2017-10-28 20:00] VITALS: BP 118/73
--- NOTE | 2017-10-28 20:30 | NUR ---
MEDICATION EDUCATION GIVEN. PATIENT VERBALIZED UNDERSTANDING. MEDICATION ADMINISTERED ORDERED. PATIENT TOLERATED WELL. WILL CONTINUE TO MONITOR
--- NOTE | 2017-10-28 22:15 | NUR ---
ASSISTED PATIENT WITH BEDPAN, PATIENT VOIDED. PERICARE DONE. PATIENT TOLERATED WELL. WILL CONTINUE TO MONITOR
[2017-10-29] VITALS: BP 123/71
[2017-10-29] MEDS: MORPHINE SULFATE 2 MG/ML SYR IVP PRN ×2 (01:22→06:38)
--- NOTE | 2017-10-29 01:31 | NUR ---
ASSISTED PATIENT WITH BEDPAN, PATIENT VOIDED. PERICARE DONE. PATIENT TOLERATED WELL. WILL CONTINUE TO MONITOR
--- NOTE | 2017-10-29 04:00 | NUR ---
CHECKED ON PATIENT. PATIENT IS ASLEEP. NO SIGNS AND SYMPTOMS OF DISTRESS NOTED. WILL CONTINUE TO MONITOR
[2017-10-29 04:02] VITALS: BP 129/70
[2017-10-29] MEDS: DEXTROSE 5% IV SCH ×3 (05:44→21:00)
[2017-10-29] MEDS: TRIMETH IV SCH ×3 (05:44→21:00)
[2017-10-29] MEDS: SULFAMETH IV SCH ×3 (05:44→21:00)
[2017-10-29] MEDS: ONDANSETRON 4 MG/2 ML VIAL IM/IVP PRN ×2 (06:34→12:31)
[2017-10-29] MEDS: ALBUTEROL SULFATE/IPRATROPIU 3 ML SOL IH SCH ×3 (06:50→18:57)
[2017-10-29] MEDS: BUDESONIDE 0.5 MG/2 ML NEBU INH SCH ×2 (06:59→18:57)
--- NOTE | 2017-10-29 07:20 | NUR ---
PATIENT REPORT GIVEN TO MORNING NURSE AT BEDSIDE. PATIENT IS IN STABLE CONDITION
--- NOTE | 2017-10-29 07:30 | NUR ---
RECEIVED ON BED AAOX4. NO SOB NOTED. NO C/O PAIN AT THIS TIME. IV TO LT AC AND RT FOREARM PATENT AND INTACT. CHEST, DIMINISHED AIR ENTRY TO THE BASES. ABDOMEN SOFT, BOWEL SOUNDS PRESENT. NO EDEMA NOTED. INSTRUCTED PT TO CALL FOR ASSISTANCE. CALL LIGHT WITHIN REACH, PT VERBALIZED UNDERSTANDING.
--- NOTE | 2017-10-29 07:31 | NUR ---
WITH OXYGEN AT 2LPM VIA NASAL CANNULA WITH SATS AT 96%.
[2017-10-29 08:54] VITALS: BP 133/73
[2017-10-29 08:57] LABS: ANION GAP 5.9 (8-16); CREATININE 0.5 mg/dL (0.6-1.3); POTASSIUM 3.9 mmol/L (3.5-5.1)
[2017-10-29 08:58] LABS: HEMATOCRIT 33.8 % (36-48); HEMOGLOBIN 11.1 g/dL (12.0-16.0); MEAN CORPUSCULAR HEMOGLOBIN 30 pg (27-31); MEAN CORPUSCULAR HGB CONC 33 g/dL (33-37); MEAN CORPUSCULAR VOLUME 90.8 fL (80-94); PLATELET COUNT (AUTO) 344 K/uL (140-450); RED BLOOD CELL COUNT(AUTO) 3.72 MIL/uL (4.20-5.40); RED CELL DISTRIBUTION WIDTH 13.4 % (11.6-13.7); WHITE BLOOD COUNT (AUTO) 3.6 K/uL (4.8-10.8)
[2017-10-29 08:59] LABS: BASOPHILS % (AUTO) 0.6 % (0.0-2.0); EOSINOPHILS # (AUTO) 0.2 K/uL (0-0.4); EOSINOPHILS % (AUTO) 4.3 % (0.0-4.0); LYMPHOCYTES # (AUTO) 0.4 K/uL (2.5-16.5); MAGNESIUM 1.8 mg/dL (1.8-2.4); MONOCYTES # (AUTO) 0.5 K/uL (0.8-1.0); MONOCYTES % (AUTO) 12.5 % (1.7-9.3); NEUTROPHILS # (AUTO) 2.5 K/uL (1.8-7.7); NEUTROPHILS % (AUTO) 71.6 % (42.2-75.2)
[2017-10-29] MEDS: ACETAMINOPHEN 325 MG TAB PO PRN (09:01)
[2017-10-29] MEDS: NYSTATIN 500 MU/5 ML UDC PO SCH ×4 (09:02→20:30)
[2017-10-29] MEDS: LACTOBACILLUS RHAMNOSUS GG 1 EACH CAP PO SCH (09:02)
[2017-10-29] MEDS: ATORVASTATIN 20 MG TAB PO SCH (09:02)
[2017-10-29] MEDS ORDERED: KETOROLAC 30 MG/ML VIAL IVP PRN (09:20)
--- NOTE | 2017-10-29 11:00 | NUR ---
Jewel Bearing Driller Notes: These Retail Pharmacy Merchandiser and MD Jarquin met with Patient to discuss Patient's request to discharge today due to having a Court Date tomorrow 10/30/17. (I translated for MD due to Patient been chinese speaking Only). Explained to Patient that her medical conditions are not stable and it will be detrimental for her health to discharge. Patient stated that she has a court date tomorrow and has been warned by the quality assurance representative that if she misses the court date she can be send to half-way. MD Responded to Patient that a letter can be made explaining her condition and reason why patient was not able to attend the court date. Patient stated that she has done that before on previous dates and Director Of Social Work still not on agreement and warned her that if she was to do that again she will be arrested. These principal technical writer asked Patient if she can make a call to the courts and discuss matter; Patient agreed and call court and public message service supervisor office about her case and situation. I spoke to Scarlett administrative accountant for Patient's Content Analyst Evelyn Buckley. Per Scarlett Patient's Cable Mechanic its at court today and will not be available; however she transfer the call to her special education supervisor to speak to patient about situation. Per special education supervisor he has been following Patient's case with public message service supervisor and patient has missed a lot of court dates in the past, due to her illness and several hospitalizations and case has been postponed too many times and it is difficult to tell what will the Director Of Social Work want to do if patient is to miss again. He added that a letter from with Patient Dx and reasons why patient will miss can be send via fax to their office (activities coordinator office) to be presented tomorrow, at court however; it all depends on the Director Of Social Work to accepted or not. in addition he stated that patient can still faced an order for her arrest for not showing up since she has already been warned before. These principal technical writer translated to patient information and thanked him as I ended the call. Patient verbalized understanding and stated that she will not want to take the chance and miss the court date therefore; she will still would like to Discharge today. I Translated and communicated to MD Jarquin patient's request.
[2017-10-29 12:00] VITALS: BP 132/78
--- NOTE | 2017-10-29 12:35 | NUR ---
PT C/O NAUSEA, MEDICATED WITH ZOFRAN IVPB ORDERED PRN.
--- NOTE | 2017-10-29 13:07 | NUR ---
SPOKE WITH DR. UNDERWOOD REGARDING THE PICC PLACEMENT, STATED HE WILL GIVE THE PICC LINE NURSE A CALL TO WHAT TIME THEY CAN COME IN TODAY.
[2017-10-29] MEDS: NACL 0.9% 1,000 ML IV SCH (13:30)
--- NOTE | 2017-10-29 13:34 | NUR ---
Match Up Person Note: I met with patient at bedside. Patient speaks Korean. Per patient, prior to hospital admission she was not receiving home health services at home, she does not have home O2. She is agreeable with home health for ivs. I confirmed her home address, [address] [place] [address], and phone number . Per patient, she does not have a preference for home infusion company or home health company. I faxed inquiry to [facility] infusion, phone number and [facility], phone number .
--- NOTE | 2017-10-29 14:13 | NUR ---
Skid Strapper Note: Per Finesse from [facility] home infusion, phone number , they will deliver medication to patient's home today. Per Brian from [facility], phone number , they will provide nursing staff and will contact a DME company for home O2, they will request DME company to deliver portable O2 tank to hospital today and concentrator to patient's home, patient's nurse Tonja made aware.
[2017-10-29] MEDS ORDERED: SULF-59 PO (14:14)
--- NOTE | 2017-10-29 14:30 | NUR ---
ENRIQUETA, PICC LINNE NURSE CALLED ANS STATED HER ETA WILL BE PAST [address] UNDERWOOD NOTIFIED.
[2017-10-29] MEDS ORDERED: [UNRECOGNIZED DRUG - CODE] PO (14:32)
[2017-10-29] MEDS ORDERED: LACT10CA PO (14:32)
[2017-10-29] MEDS ORDERED: FIO PO (14:49)
--- NOTE | 2017-10-29 14:57 | NUR ---
President Sales And Marketing Note: I received a phone call from Sierra from [facility] home infusion, phone number , she stated they can't deliver medication after all because they do not have sulfamethoxazole (Bactrim) in stock. I faxed inquiry to a different home infusion company, [facility], phone number . Addendum: 10/29/17 at 1527 by Radha GOSS Per [facility], phone number , the iv medical supplies are covered by [facility], they do not have a contract with [facility] unable to accept referral.
[2017-10-29] MEDS ORDERED: FAMOTIDINE 20 MG TAB PO SCH (15:00)
--- NOTE | 2017-10-29 15:00 | NUR ---
PER DEISY WAREHOUSE ASSOCIATE, OXYGEN TANK WILL BE DELIVERED AT PT'S BEDSIDE TODAY. WILL DOCUMENT WHEN IT COMES.
--- NOTE | 2017-10-29 15:55 | NUR ---
CONSENT SIGNED BY PT FOR PICC LINE PLACEMENT. RISKS AND BENEFITS EXPLAINED BY KJ MEDINA AT THE BEDSIDE WITH THE USE OF PALEOLOGIST PHONE, PT VERBALIZED UNDERSTANDING.
[2017-10-29 16:00] VITALS: BP 118/67
--- NOTE | 2017-10-29 17:04 | NUR ---
Hotbed Operator Note: Per Ana from [facility] home infusion , they can deliver medication to patient's home tomorrow morning or early afternoon, however, need to speak with regarding medication dose, I informed of this, will speak with Ana from [facility] home infusion. Per patient, she is aware home health nurse will not be able to visit patient daily. Patient stated she is willing to learn how to address/complete home infusion needs and also has a sister, Rashida that can help her with this, I informed Amanda from [facility] of this.
--- NOTE | 2017-10-29 18:15 | NUR ---
Rn Complex Care Notes: Peewee Torres from [facility], phone number , DME company will deliver portable O2 tank to hospital today before discharge and concentrator to patient's home, patient's nurse Tonja made aware.
--- NOTE | 2017-10-29 18:29 | NUR ---
PICC LINE INSERTION ON GOING AT THE BEDSIDE.
--- NOTE | 2017-10-29 18:49 | NUR ---
PICC LINE PLACEMENT DONE, AWAITING FOR CXR RESULT POST PICC LINE PLACEMENT. Addendum: 10/29/17 at 1850 by Tonja Gonsalez RN PT TOLERATED PROCEDURE WELL.
--- NOTE | 2017-10-29 18:51 | NUR ---
NOTED RT UPPER ARM PICC LINE WITH DUAL LUMEN. DRESSING CLEAN, DRY AND INTACT.
--- NOTE | 2017-10-29 19:00 | NUR ---
KRISTINA FROM [facility] CALLED AND STATED WILL DELIVER THE OXYGEN TANK AT THE BEDSIDE AROUND 1930 HRS TONIGHT. PT NOTIFIED, VERBALIZED UNDERSTANDING. ENRIQUETA, PICC LINE NURSE TOOK A PRELIMINARY RESULT OF THE CXR POST PICC LINE PLACEMENT AND STATED IT LOOKS OKAY BUT STATED TO WAIT FOR THE FINAL RESULT BEFORE USING THE PICC LINE. ENRIQUETA ALSO LEFT HER CELL PHONE NUMBER JUST IN CASE IT NEEDS READJUSTMENT. ([phone]). WILL ENDORSE TO NEXT SHIFT NURSE TO CONTINUE WITH THE DISCHARGE PROCESS.
--- NOTE | 2017-10-29 19:30 | NUR ---
RECEIVED BEDSIDE REPORT FROM DAY SHIFT NURSE TREVOR RN, PT STABLE, NO DISTRESS NOTED, IV TO L AC 20G SL, PATENT, INTACT, AND R HAND 20G PATENT, INTACT, RUNNING NS @ 60ML/HR, INFUSING WELL, NEW PICC LINE INSERTED TODAY ON THE R UPPER ARM, AWAITING XRAY FOR PLACEMENT CONFIRMATION. PT ON 2LPM O2 VIA NC, NO SOB NOTED. PT RESTING ON BED, INITIAL ASSESSMENT DONE, ALL SAFETY PRECAUTION MET, WILL CONTINUE TO MONITOR.
--- NOTE | 2017-10-29 20:05 | NUR ---
TALKED TO MOTHER OF PT THAT SAID THAT OXYGEN TANK WAS DELIVERED TO HOME, AND SHE HAS IT IN HER CAR, NOTIFIED MOTHER TO BRING IT DOWN FOR PT. MOTHER STATED UNDERSTANDING AND SHE BROUGHT THE OXYGEN TANK TO UNIT.
[2017-10-29] MEDS: HYDROcodone/APAP 5/325 MG 1 TAB TAB PO PRN (20:31)
--- NOTE | 2017-10-29 20:31 | NUR ---
DUE MEDICATION ADMINISTERED, PT TOLERATED WELL, PT REFUSED IV ANTIBIOTIC STATED THAT SHE DOES NOT WANT TO WAIT UNTIL THE MEDICATION FINISHED, AND WANTS TO LEAVE FOR HOME SOON POSSIBLE. PT STATED ALSO HAVING PAIN 6/10 ON THE NEW PICC LINE PLACEMENT. PAIN MEDICATION GIVEN, PT TOLERATED WELL, NO DISTRESS NOTED, CALL LIGHT WITHIN REACH, WILL CONTINUE TO MONITOR.
[2017-10-29] MEDS ORDERED: SODIUM PHOS / POTASSIUM PHOS 1 PKT PDR PO SCH (21:00)
--- NOTE | 2017-10-29 21:30 | NUR ---
NOTIFIED DR. FLETCHER REGARDING PT CXRAY HAS NOT RESULTED YET AND PT WANTS TO GO HOME, STATED UNDERSTANDING AND SAID WILL CALL RADIOLOGY TO EXPEDITE THE PROCESS.
--- NOTE | 2017-10-29 21:40 | NUR ---
NOTIFIED REGARDING PT CXRAY CATH TIP IS IN THE R [facility]. DR. FLETCHER STATED UNDERSTANDING, WILL PULL CATH OUT A LITTLE AND ORDER ANOTHER CXRAY.
--- NOTE | 2017-10-29 22:15 | NUR ---
DR. FLETCHER AT BEDSIDE WITH PT.
--- NOTE | 2017-10-29 23:00 | NUR ---
PT READY TO GO HOME, NOTICED THAT O2 TANK IS EMPTY, CALLED TO [facility] , TALKED TO TOBY REGARDING PT O2 TANK IS EMPTY. SHE SAID THAT THEY WON'T BE ABLE TO DELIVER NEW OXYGEN TANK UNTIL TOMORROW. Addendum: 10/30/17 at 0045 by Isabel Willis RN PT SIGN ALL DISCHARGE PAPERWORK, BELONGING LIST, BOTH IV TAKEN OUT, CATH INTACT. WRIST BAND TAKEN OUT, PT STABLE, NO DISTRESS NOTED, WILL CONTINUE TO MONITOR.
--- NOTE | 2017-10-29 23:10 | NUR ---
NOTIFIED CHARGE NURSE FERNANDA AND LINE SUPPLY YARELIS REGARDING PT O2 SITUATION, LINE SUPPLY SAID IT IS OK FOR PT TO BRING HOME O2 TANK, LONG THE PT UNDERSTANDS THAT SHE HAS TO BRING THE O2 TANK BACK TO THE HOSPITAL TOMORROW 10/30/17 AND SIGN A PAPER STATING THAT SHE WILL BRING IT BACK.
--- NOTE | 2017-10-29 23:15 | NUR ---
TALKED TO MOM AND PT REGARDING O2 TANK SITUATION, PT AND MOM STATED UNDERSTANDING, AND SIGNED PAPER REGARDING O2 TANK.
--- NOTE | 2017-10-29 23:40 | NUR ---
RT RAJINDER BROUGHT OXYGEN, WHEELED PT OUT OF UNIT, PT ON 2LPM O2 VIA NC, PT STABLE, NO DISTRESS NOTED, ON THE WAY OUT TALKED TO BOTTOM PRECIPITATOR OPERATOR YARELIS AGAIN REGARDING THE O2 TANK. GATEMAN STATED UNDERSTANDING, PT STATED UNDERSTANDING TO BRING THE OXYGEN BACK TOMORROW.
[2017-10-30] MEDS ORDERED: FAMOTIDINE 20 MG TAB PO SCH (09:00)
== END 2017-10-29 23:40 | disposition home health service (06) | DRG 974 ==
LOC: MED 12:32 → MTU 17:20
PROVIDERS: ADMIT Family Medicine; ATTEND Family Medicine
PROC: 02HV33Z Insertion of Infusion Device into Superior Vena Cava, Percutaneous Approach (ICD-10-PCS; principal; 2017-10-29)
PROC: B548ZZA Ultrasonography of Superior Vena Cava, Guidance (ICD-10-PCS; 2017-10-29)
DX: B20 Human immunodeficiency virus [HIV] disease (principal); B59 Pneumocystosis; J96.21 Acute and chronic respiratory failure with hypoxia; J96.22 Acute and chronic respiratory failure with hypercapnia; E44.0 Moderate protein-calorie malnutrition; J44.1 Chronic obstructive pulmonary disease with (acute) exacerbation; E87.1 Hypo-osmolality and hyponatremia; Z68.1 Body mass index [BMI] 19.9 or less, adult; E78.5 Hyperlipidemia, unspecified; Z85.118 Personal history of other malignant neoplasm of bronchus and lung; Z99.81 Dependence on supplemental oxygen; Z86.14 Personal history of Methicillin resistant Staphylococcus aureus infection; Z22.322 Carrier or suspected carrier of Methicillin resistant Staphylococcus aureus; Z88.6 Allergy status to analgesic agent; E83.39 Other disorders of phosphorus metabolism
CPT/HCPCS: 36415; 36600; 70450; 71045; 71275; 80048; 80053; 80305; 81001; 81025; 82150; 82803; 83036; 83605; 83615; 83690; 83735; 83880; 84100; 84134; 84436; 84443; 84484; 84703; 85025; 85610; 85730; 86360; 87040; 87081; 93925; 93970; 94640; 96365; 97140; 97161-GP; 99285; C1751; J0696; J1885; J1956; J2270; J2405; J2543; J3490; J7030; J7060; J7620; J7626; Q0092; Q9967

== ENCOUNTER 2017-11-14 13:18 | Inpatient (IN) | payer OTHER, MEDICAID ==
[~2017-11-14] VITALS: Ht 152.4 cm; Wt 40.8 kg
[~2017-11-14 13:18] MED LIST changes: +FIO PO; +LACT10CA PO; -LEVO750T2 IV; +[UNRECOGNIZED DRUG - CODE] PO
[2017-11-14 13:22] VITALS: BP 120/69
--- NOTE | 2017-11-14 13:25 | NUR ---
Note lashanda in ED - 11/14/17 at 1754 [facility] will be admitted to care of DR NELSON. Admited to TELE. Will go to room 106B. Belongings list completed. Report to NICOLETTE MORALES.
--- NOTE | 2017-11-14 13:31 | NUR ---
TAKEN VIA WC TO BED 8
--- NOTE | 2017-11-14 13:32 | NUR ---
Note undone in EDM - 11/14/17 at 1412 by MEDCS1 C/O GENWEAKNESS AND BODY ACHES X 6 DAYS, WITH FEVER/CHILLS. UNABLE TO SLEEP. WITH PICC LINE IN PLACE TO RT ARM FOR CHEMO. HX: LUNG CA -- LAST CHEMO ENDED YESTERDAY. HTN.PATIENT PRESENTS TO ED WITH [] . PT STATES [] . DENIES N/V/D; SKIN IS PINK/WARM/DRY; AAOX4 WITH EVEN AND STEADY GAIT; LUNGS CLEAR BL; HR EVEN AND REGULAR; PT DENIES ANY FEVER, CP, SOB, OR COUGH AT THIS TIME; PATIENT STATES PAIN OF 0/10 AT THIS TIME; VSS; PATIENT POSITIONED FOR COMFORT; HOB ELEVATED; BEDRAILS UP X2; BED DOWN. ER MD MADE AWARE OF PT STATUS.
--- NOTE | 2017-11-14 13:32 | NUR ---
Note undone in EDM - 11/14/17 at 1414 by MED1 C/O GENWEAKNESS AND BODY ACHES X 6 DAYS, WITH FEVER/CHILLS. UNABLE TO SLEEP. WITH PICC LINE IN PLACE TO RT ARM FOR CHEMO. HX: LUNG CA -- LAST CHEMO ENDED YESTERDAY. HTN.AAOX4 . LUNGS CLEAR BL; HR EVEN AND REGULAR. PATIENT STATES PAIN OF 10/10 AT THIS TIME; PATIENT POSITIONED FOR COMFORT; HOB ELEVATED; BEDRAILS UP X2; BED DOWN. ER MADE AWARE OF PT STATUS.
--- NOTE | 2017-11-14 13:32 | NUR ---
C/O GENWEAKNESS AND BODY ACHES X 6 DAYS, WITH FEVER/CHILLS. UNABLE TO SLEEP. WITH PICC LINE IN PLACE TO RT ARM FOR CHEMO. HX: LUNG CA -- LAST CHEMO ENDED YESTERDAY. HTN.AAOX4 . LUNGS CLEAR BL; HR EVEN AND REGULAR. PATIENT STATES PAIN OF 10/10 AT THIS TIME; PATIENT POSITIONED FOR COMFORT; HOB ELEVATED; BEDRAILS UP X2; BED DOWN. ER MD MADE AWARE OF PT STATUS.
[2017-11-14] MEDS ORDERED: NACL 0.9% 1,000 ML IV SCH (14:13)
[2017-11-14] MEDS ORDERED: fentaNYL 0.05 MG/ML VIAL IVP ONE (14:15)
[2017-11-14] MEDS ORDERED: METOCLOPRAMIDE 10 MG/2 ML INJ VIAL IVP ONE (14:15)
[2017-11-14] MEDS ORDERED: IPRATROPIUM 0.02% 0.5 MG/2.5 ML NEBU INH ONE (14:50)
[2017-11-14] MEDS ORDERED: ALBUTEROL 0.083% 2.5 MG/3 ML NEBU INH ONE (14:50)
[2017-11-14 15:10] VITALS: BP 118/73
[2017-11-14 15:11] LABS: BASOPHILS % (AUTO) 0.7 % (0.0-2.0); EOSINOPHILS # (AUTO) 0.2 K/uL (0-0.4); EOSINOPHILS % (AUTO) 6.6 % (0.0-4.0); HEMATOCRIT 30.8 % (36-48); LYMPHOCYTES # (AUTO) 0.3 K/uL (2.5-16.5); LYMPHOCYTES % (AUTO) 9.9 % (20.5-51.1); MEAN CORPUSCULAR HEMOGLOBIN 30 pg (27-31); MEAN CORPUSCULAR HGB CONC 32 g/dL (33-37); MONOCYTES # (AUTO) 0.7 K/uL (0.8-1.0); MONOCYTES % (AUTO) 19.7 % (1.7-9.3); NEUTROPHILS # (AUTO) 2.1 K/uL (1.8-7.7); NEUTROPHILS % (AUTO) 63.1 % (42.2-75.2); PLATELET COUNT (AUTO) 232 K/uL (140-450); RED BLOOD CELL COUNT(AUTO) 3.35 MIL/uL (4.20-5.40); RED CELL DISTRIBUTION WIDTH 14.9 % (11.6-13.7); WHITE BLOOD COUNT (AUTO) 3.4 K/uL (4.8-10.8)
--- NOTE | 2017-11-14 15:19 | NUR ---
ABG DONE. RESULTS GIVEN TO MD SANCHEZ. PLACED ON BIPAP PER DR SANCHEZ ORDER. HHN TX INLINE. CLEAR BREATH SOUNDS. WILL CONTINUE TO MONITOR.
[2017-11-14] MEDS ORDERED: LORazepam 2 MG/ML VIAL IVP ONE (15:20)
--- NOTE | 2017-11-14 15:27 | NUR ---
RT AT BEDSIDE FOR BREATHING TREAMENT .
[2017-11-14] MEDS ORDERED: ZOLPIDEM 5 MG TAB PO PRN (15:30)
[2017-11-14] MEDS ORDERED: ONDANSETRON 4 MG/2 ML VIAL IM/IVP PRN (15:30)
[2017-11-14] MEDS ORDERED: DOCUSATE SODIUM 100 MG GELCAP PO PRN (15:30)
[2017-11-14 15:35] LABS: ALBUMIN 2.9 g/dL (3.4-5.0); ANION GAP 3.1 (8-16); CREATININE 0.4 mg/dL (0.6-1.3); POTASSIUM 3.5 mmol/L (3.5-5.1); TOTAL BILIRUBIN 0.1 mg/dL (0.0-1.0)
[2017-11-14] MEDS ORDERED: LEVOFLOXACIN 500 MG/D5W PREMIX 100 ML IV ONE (15:35)
[2017-11-14 15:43] LABS: CARBON DIOXIDE 41.4 mmol/L (21-32)
[2017-11-14 16:40] LABS: MAGNESIUM 2.1 mg/dL (1.8-2.4); PHOSPHORUS 2.4 mg/dL (2.5-4.9)
[2017-11-14 16:46] LABS: APPEARANCE,URINE CLEAR (CLEAR); BILIRUBIN,URINE NEGATIVE (NEGATIVE); BLOOD, URINE NEGATIVE (NEGATIVE); COLOR,URINE YELLOW (YELLOW); LEUKOCYTE ESTERASE ,URINE NEGATIVE (NEGATIVE); NITRITE, URINE NEGATIVE (NEGATIVE); PH,URINE 6.5 (5.0-9.0); UGLUCOSE NEGATIVE (NEGATIVE)
[2017-11-14 16:58] LABS: BARBITURATE, URINE POS. ng/ml (NEG <=200); BENZODIAZEPINE, URINE NEG. ng/mL (NEG <=200); CANNABINOID, URINE NEG. ng/mL (NEG <=50); COCAINE, URINE NEG. ng/mL (NEG <=300); OPIATE, URINE NEG. ng/mL (NEG <=2000); PHENCYCLIDINE SCREEN,URINE NEG. ng/mL (NEG <=25)
--- NOTE | 2017-11-14 17:27 | NUR ---
Patient will be admitted to care of DR NELSON. Admited to TELE. Will go to room 106A. Belongings list completed. Report to NICOLETTE MORALES.
[2017-11-14 17:35] VITALS: BP 131/84
--- NOTE | 2017-11-14 17:35 | NUR ---
PATIENT ARRIVED ON RUST UNIT VIA BED/GURNEY FROM ER WITH BIPAP. PATIENT SAFETY TRANSFERRED TO RUST BED AND BIPAP HOOKED UP BY RT. NO DISTRESS NOTED. DENIES ANY PAIN. V/S STABLE. O2 SAT AT 98% ON BIPAP. RESPIRATIONS EVEN, SHALLOW. LUNGS CTA ON ALL LOBES. ABDOMEN SOFT, NON-DISTENDED. AAOX2, CALM, COOPERATIVE, SKIN COLOR APROPRIATE TO ETHNICITY, WARM TO TOUCH. SKIN IS INTACT. HAS RIGHT PICC LINE DOUBLE LUMEN, 1 LUMEN FLUSHES, THE OTHER LUMEN DOES NOT. WILL NOTIFY MD. ORIENTED PATIENT TO ROOM AND CALL LIGHT. SAFETY MEASURES IN PLACE, CALL LIGHT WITHIN REACH. WILL CONTINUE TO MONITOR.
--- NOTE | 2017-11-14 18:00 | NUR ---
PATIENT LYING IN BED WITH BIPAP. SLEEPING, AROUSABLE BY VOICE. NO DISTRESS NOTED. IVF STARTED PER MD ORDERS. CONDITION UNCHANGED. WILL CONTINUE TO MONITOR.
[2017-11-14] MEDS: DEXT 5% / NACL 0.45% 1,000 ML IV SCH (18:07)
--- NOTE | 2017-11-14 19:30 | NUR ---
RECEIVED PT REPORT AT BEDSIDE FROM DAY SHIFT NURSE. PT IN STABLE CONDITION. PT IS CURRENTLY SLEEPING BUT EASILY AROUSABLE. PT HAS BIPAP ON WITH 02 SAT BETWEEN 98-100%. PT SKIN IS INTACT. R DOUBLE LUMEN PICC IN PLACE WITH IVF RUNNING PER MD ORDERS. PT IS NOT C/O PAIN. BED IS LOCKED, LOWEST POSITION WITH SIDE RAILS UP X2. CALL LIGHT IS WITHIN REACH. BOARD UPDATED. WILL CONTINUE TO MONITOR.
--- NOTE | 2017-11-14 19:30 | NUR ---
GAVE REPORT TO DIRECTOR BUSINESS MANAGEMENT NURSE FOR CONTINUITY OF CARE. PATIENT IN STABLE CONDITION.
[2017-11-14 20:00] VITALS: BP 125/70
[2017-11-14] MEDS ORDERED: ALBUTEROL SULFATE/IPRATROPIU 3 ML SOL IH PRN (20:05)
[2017-11-14] MEDS ORDERED: guaiFENesin 20 MG/ML UDC PO PRN (20:25)
--- NOTE | 2017-11-14 21:10 | NUR ---
SPOKE WITH PHARMACY, PT HIV HOME MEDICATIONS ARE NOT SUPPLIED AT HOSPITAL. PHARMACY REQUESTING PT BRING THESE MEDICATIONS FROM HOME SO THEY CAN CONTINUE TO BE TAKEN DURING HOSPITAL STAY.
--- NOTE | 2017-11-14 22:16 | NUR ---
PT IS STILL SLEEPING IN BED. NO S/SX OF DISTRESS. WILL CONTINUE TO MONITOR.
[2017-11-15] VITALS: BP 137/82
--- NOTE | 2017-11-15 | NUR ---
PT VS WITHIN NORMAL LIMITS. NO S/SX OF DISTRESS. PT IS ASLEEP. WILL CONTINUE TO MONITOR.
--- NOTE | 2017-11-15 02:15 | NUR ---
ASSISTED DEBT RECOVERY OFFICER IN CLEANING AND CHANGING PT. PT TOLERATED WELL. WILL CONTINUE TO MONITOR PT.
--- NOTE | 2017-11-15 02:25 | NUR ---
PT HOME MEDICATIONS COLLECTED AND SUBMITTED TO PHARMACY.
[2017-11-15 04:00] VITALS: BP 132/80
--- NOTE | 2017-11-15 04:30 | NUR ---
PT REFUSING TO WEAR BIPAP. WILL CONTINUE TO MONITOR.
[2017-11-15] MEDS: ALBUTEROL SULFATE/IPRATROPIU 3 ML SOL IH SCH ×3 (07:00→19:07)
--- NOTE | 2017-11-15 07:16 | NUR ---
ANG DONE WITH NO INCIDENT. RESULTS GIVEN TO MD INGRAM AND IN [employer]. PT IS ASKING WHEN SHE CAN LEAVE. INFORMED PT THAT HER MD WILL DECIDE THAT AND WILL BE THERE SHORTLY TO TALK WITH HER.. RN MARIANNE AWARE. BIPAP STANDBY IN ROOM CONNECTED TO [employer]. HHN TX GIVEN WITH NO ADVERSE REACTION. DECREASED OXYMIZER FLOW TO 1 L. PT SPO2 IS STILL 100%. DIMINISHED BREATH SOUNDS ON LEFT CLEAR DIMINISHED ON RIGHT. MD INGRAM AWARE. WILL CONTINUE TO MONITOR.
--- NOTE | 2017-11-15 07:20 | NUR ---
ENDORSED PT TO DAY SHIFT NURSE FOR CONTINUITY OF CARE. PT IN STABLE CONDITION.
--- NOTE | 2017-11-15 07:30 | NUR ---
RECEIVED REPORT FROM LIFT BUILDER WHOLE RN. RIGHT UA PICC LINE DOUBLE LUMEN RUNNING IVF PER MD ORDERS. SKIN IS INTACT. PT IS ON 1L OXYIMIZER, SATURATING WELL. NO SIGNS OF DISTRESS OR SOB. AAO X2. PT IS LETHARGIC. REFUSING SCDS. STATES THAT SHE WISHES TO GO HOME. MD WILL BE IN ROOM LATER FOR ROUNDS TO DISCUSS PLAN OF CARE WITH PT. ALL SAFETY PRECAUTIONS IN PLACE, WILL CONTINUE TO MONITOR.
[2017-11-15 07:34] LABS: ANION GAP 3.9 (8-16); CARBON DIOXIDE 36.2 mmol/L (21-32); CREATININE 0.3 mg/dL (0.6-1.3); POTASSIUM 3.1 mmol/L (3.5-5.1)
[2017-11-15 07:38] LABS: BASOPHILS % (AUTO) 0.7 % (0.0-2.0); EOSINOPHILS # (AUTO) 0.3 K/uL (0-0.4); EOSINOPHILS % (AUTO) 6.9 % (0.0-4.0); HEMOGLOBIN 10.3 g/dL (12.0-16.0); LYMPHOCYTES # (AUTO) 0.4 K/uL (2.5-16.5); MEAN CORPUSCULAR HEMOGLOBIN 30 pg (27-31); MEAN CORPUSCULAR HGB CONC 32 g/dL (33-37); MEAN CORPUSCULAR VOLUME 91.9 fL (80-94); MONOCYTES # (AUTO) 0.7 K/uL (0.8-1.0); MONOCYTES % (AUTO) 18.5 % (1.7-9.3); NEUTROPHILS # (AUTO) 2.4 K/uL (1.8-7.7); NEUTROPHILS % (AUTO) 62.9 % (42.2-75.2); PLATELET COUNT (AUTO) 246 K/uL (140-450); RED BLOOD CELL COUNT(AUTO) 3.48 MIL/uL (4.20-5.40); RED CELL DISTRIBUTION WIDTH 14.8 % (11.6-13.7); WHITE BLOOD COUNT (AUTO) 3.8 K/uL (4.8-10.8)
[2017-11-15 07:48] LABS: MAGNESIUM 2.2 mg/dL (1.8-2.4); PHOSPHORUS 2.1 mg/dL (2.5-4.9)
[2017-11-15 08:00] VITALS: BP 113/73
[2017-11-15] MEDS: DEXT 5% / NACL 0.45% 1,000 ML IV SCH (08:55)
--- NOTE | 2017-11-15 09:58 | NUR ---
PHARMACY WILL BE DISPENSING THE SCHEDULED HOME MEDS TO THE UNIT FOR ADMINISTRATION TO PT.
--- NOTE | 2017-11-15 10:22 | NUR ---
PATIENT'S OWN HOME MEDS ADMINISTERED PER MD ORDERS.
--- NOTE | 2017-11-15 10:35 | NUR ---
Inspector Chief Note: and I met with patient at bedside. Patient speaks Slovenian. Per patient, she is not in agreement with short term half-way facility placement. She would like to return home upon discharge. She stated her mother Mary and mother's will assist her with ADLs at home. Prior to hospital admission she was receiving services from [facility] and would like to continue receiving services from [facility].
--- NOTE | 2017-11-15 10:45 | NUR ---
DR. PEREZ IN ROOM TO SEE PT. SPECIAL MACHINE STITCHER AT BEDSIDE. PT DENIES PAIN AND DISCOMFORT AT THIS TIME. NO SIGNS OF DISTRESS.
--- NOTE | 2017-11-15 11:02 | NUR ---
PATIENT HAS BEEN SCREENED AND CATEGORIZED HIGH NUTRITION RISK. PATIENT WILL BE SEEN WITHIN 1-2 DAYS OF ADMISSION. 11/15/17 11/16/[address]
[2017-11-15 12:00] VITALS: BP 102/61
[2017-11-15] MEDS ORDERED: SODIUM PHOS / POTASSIUM PHOS 1 PKT PDR PO SCH (12:00)
[2017-11-15] MEDS ORDERED: POTASSIUM CHLORIDE 10 MEQ TABER PO SCH (12:00)
--- NOTE | 2017-11-15 13:02 | NUR ---
K DUR TABLETS ADMINISTERED PER MD ORDERS. PT CONTINUES TO BE LETHARGIC BUT SWALLOWS PILLS WITHOUT PROBLEMS. ALL SAFETY PRECAUTIONS IN PLACE.
--- NOTE | 2017-11-15 14:29 | NUR ---
PT RESTING IN BED, AROUSABLE BY VOICE BUT LETHARGIC. RD COULD NOT WAKE UP PT ENOUGH TO GET ASSESSMENT DONE. WILL CALL RD WHEN PT IS AWAKE. Addendum: 11/15/17 at 1526 by Sheree Lozano Meng, RN PT RESTING IN BED, AROUSABLE BY VOICE BUT LETHARGIC. LOW PRESSURE FIRER COULD NOT WAKE UP PT ENOUGH TO GET ASSESSMENT DONE. WILL CALL LOW PRESSURE FIRER WHEN PT IS AWAKE.
[2017-11-15 16:00] VITALS: BP 124/77
[2017-11-15] MEDS ORDERED: ALTEPLASE 2 MG VIAL MC SCH (16:30)
--- NOTE | 2017-11-15 16:35 | NUR ---
PT IS AWAKE AND REFUSING BLOOD SUGAR CHECKS. PT IS CLENCHING ONE HAND TOGETHER IN A FIST AND HOLDING OTHER HAND BEHIND HEAD. WHEN AGAIN ASKED IN EGYPTIAN IF BLOOD SUGAR CHECK CAN BE PERFORMED, PT REFUSED. Addendum: 11/15/17 at 1637 by Sheree Lozano Meng, RN PLEASE DISREGARD, INCORRECT PATIENT.
--- NOTE | 2017-11-15 17:05 | NUR ---
ALTEPASE NOT AVAILABLE IN PT CASSETTE OR PYXIS. PHARMACY LINE [phone] IS DISCONNECTED NOW. WILL TRY CALLING AGAIN LATER.
[2017-11-15] MEDS ORDERED: FLUCONAZOLE 100 MG TAB PO SCH (17:14)
[2017-11-15] MEDS ORDERED: ACYCLOVIR 200 MG CAP PO SCH (17:15)
--- NOTE | 2017-11-15 17:45 | NUR ---
ALTEPASE ADMINISTERED TO PICC LINE.
--- NOTE | 2017-11-15 18:15 | NUR ---
10ML FLUID REMOVED FROM PICC LINE WITH ALTEPASE ADMINISTRATION. FLUSHED AND CONNECTED PT BACK TO IVF. PICC LINE IS PATENT.
--- NOTE | 2017-11-15 19:05 | NUR ---
RECEIVED REPORT FROM DAY SHIFT NURSE AT PT BEDSIDE. PT IN STABLE CONDITION. PT IS TIRED BUT EASILY AROUSABLE, A/O X3. SPEECH IS MUMBLED. PT HAS OXIMIZER 1L AND SATURATION IS GOOD. PT HAS SORES ON MOUTH. PT HAS UZMA DOUBLE LUMEN PICC WITH IVF RUNNING PER MD ORDERS. PT HAS NO C/O PAIN AT THIS TIME. BED IS LOCKED, LOWEST POSITION WITH SIDE RAILS UP X2. BOARD UPDATED. WILL CONTINUE TO MONITOR.
--- NOTE | 2017-11-15 19:05 | NUR ---
ENDORSED PLAN OF CARE TO INTERNET RESEARCHER RN. PT IN STABLE CONDITION.
--- NOTE | 2017-11-15 19:50 | NUR ---
PT IS REFUSING BIPAP THERAPY. PT IS ADAMANT TO NOT WEARING IT. PT SAYS IT HURTS HER HEAD. WILL CONTINUE TO MONITOR PT. NO RESPIRATORY DISTRESS NOTED.
--- NOTE | 2017-11-15 19:50 | NUR ---
RT AT BEDSIDE TO PLACE BIPAP ON PT. PT IS REFUSING. WILL CONTINUE TO MONITOR PT.
[2017-11-15 20:00] VITALS: BP 148/89
[2017-11-15] MEDS ORDERED: cefTRIAXone 1,000 MG VIAL ONE (20:28)
[2017-11-15] MEDS: ATORVASTATIN 20 MG TAB PO SCH (20:36)
--- NOTE | 2017-11-15 20:36 | NUR ---
PT REFUSED ORDERED MED, LIPITOR. IV ABX ADMINISTERED. WILL CONTINUE TO MONITOR PT.
--- NOTE | 2017-11-15 22:30 | NUR ---
PT ASLEEP IN BED. NO S/SX OF DISTRESS. WILL CONTINUE TO MONITOR.
[2017-11-16] VITALS: BP 131/80
--- NOTE | 2017-11-16 00:24 | NUR ---
PT VS WITHIN NORMAL LIMITS. PT IS ASLEEP IN BED. NO S/SX OF DISTRESS. WILL CONTINUE TO MONITOR.
[2017-11-16] MEDS: DEXT 5% / NACL 0.45% 1,000 ML IV SCH ×3 (00:47→22:56)
--- NOTE | 2017-11-16 02:14 | NUR ---
NO CHANGE IN CONDITION. PT IS ASLEEP IN BED. NO SIGNS OF DISTRESS. WILL CONTINUE TO MONITOR.
--- NOTE | 2017-11-16 03:57 | NUR ---
NEW BAG OF IVF STARTED. PT IS ASLEEP IN BED. NO CHANGE IN CONDITION. WILL CONTINUE TO MONITOR.
[2017-11-16 04:00] VITALS: BP 133/87
--- NOTE | 2017-11-16 06:05 | NUR ---
PT ASLEEP IN BED. NO SIGNS OF DISTRESS. WILL CONTINUE TO MONITOR.
[2017-11-16 06:06] LABS: BASOPHILS % (AUTO) 1.4 % (0.0-2.0); EOSINOPHILS # (AUTO) 0.3 K/uL (0-0.4); EOSINOPHILS % (AUTO) 8.9 % (0.0-4.0); HEMATOCRIT 33.5 % (36-48); HEMOGLOBIN 10.9 g/dL (12.0-16.0); LYMPHOCYTES # (AUTO) 0.3 K/uL (2.5-16.5); LYMPHOCYTES % (AUTO) 9.3 % (20.5-51.1); MEAN CORPUSCULAR HEMOGLOBIN 30 pg (27-31); MEAN CORPUSCULAR HGB CONC 33 g/dL (33-37); MEAN CORPUSCULAR VOLUME 91.6 fL (80-94); MONOCYTES # (AUTO) 0.5 K/uL (0.8-1.0); MONOCYTES % (AUTO) 17.7 % (1.7-9.3); NEUTROPHILS # (AUTO) 1.8 K/uL (1.8-7.7); NEUTROPHILS % (AUTO) 62.7 % (42.2-75.2); PLATELET COUNT (AUTO) 280 K/uL (140-450); RED BLOOD CELL COUNT(AUTO) 3.66 MIL/uL (4.20-5.40); WHITE BLOOD COUNT (AUTO) 2.9 K/uL (4.8-10.8)
[2017-11-16 06:30] LABS: CARBON DIOXIDE 35.2 mmol/L (21-32); CREATININE 0.4 mg/dL (0.6-1.3); POTASSIUM 4.2 mmol/L (3.5-5.1)
[2017-11-16] MEDS ORDERED: AZITHROMYCIN SUSP 200 MG/5 ML PO SCH ×2 (06:30→12:00)
[2017-11-16 06:36] LABS: MAGNESIUM 2.2 mg/dL (1.8-2.4); PHOSPHORUS 3.1 mg/dL (2.5-4.9)
[2017-11-16] MEDS: ALBUTEROL SULFATE/IPRATROPIU 3 ML SOL IH SCH ×3 (07:17→19:12)
--- NOTE | 2017-11-16 07:26 | NUR ---
ENDORSED PT TO DAY SHIFT NURSE. PT IN STABLE CONDITION.
--- NOTE | 2017-11-16 07:27 | NUR ---
REPORT RECEIVED FROM TUCK POINTER HELPER NURSE, PT AWAKE RESTING QUIETLY, RESP FAST AT 32, EVEN, SHALLOW, O2 SAT 97% 1L OXYMIZER, PLAN OF CARE REVIEWED, PT C/O PAIN IN HER LEFT SIDE, WILL MEDICATE PER ORDER, ALL SAFETY MEASURES IN PLACE, WILL CONTINUE TO MONITOR.
[2017-11-16 08:00] VITALS: BP 123/87
--- NOTE | 2017-11-16 08:20 | NUR ---
PT IN RADIOLOGY FOR CT CHEST
[2017-11-16] MEDS ORDERED: SULFAMETH/TRIMETH DS 800/160MG 1 TAB PO SCH (09:00)
[2017-11-16] MEDS: ACETAMINOPHEN 325 MG TAB PO PRN (09:53)
[2017-11-16] MEDS: FLUCONAZOLE 100 MG TAB PO SCH (09:53)
[2017-11-16] MEDS: ACYCLOVIR 200 MG CAP PO SCH (09:54)
[2017-11-16 12:00] VITALS: BP 128/78
--- NOTE | 2017-11-16 13:15 | NUR ---
ST AT BEDSIDE FOR SWALLOW EVAL.
--- NOTE | 2017-11-16 13:39 | NUR ---
LEADERSHIP DEVELOPMENT CONSULTANT note (bedside swallow evaluation) [id number]. Bedside swallow evaluation completed, please see report for details. LEADERSHIP DEVELOPMENT CONSULTANT provided pt with education regarding purpose of evaluation and rationale for recommendations. Pt did not appear to fully understand education provided. No family present at this time. Recommend: 1) STRICT NPO (oral cares only) 2) consider alternative method(s) of nutrition/hydration/medication vs hospice/comfort measures, as appropriate 3) no further LEADERSHIP DEVELOPMENT CONSULTANT intervention indicated at this time. Physician may reorder if pt's status improves markedly/warrants, as appropriate. G-codes: [id number] [id number] [id number] NOMS level 1. LEADERSHIP DEVELOPMENT CONSULTANT d/w RNs (Sonal and Caro) prior to and following bedside swallow evaluation completion. LEADERSHIP DEVELOPMENT CONSULTANT also d/w Dr. Garcia (in person) following bedside swallow evaluation completion.
--- NOTE | 2017-11-16 14:15 | NUR ---
DR PEREZ MADE AWARE OF NPO RECOMMENDATION BY
[2017-11-16] MEDS: MORPHINE SULFATE 2 MG/ML SYR IVP PRN ×3 (15:09→23:49)
[2017-11-16 16:00] VITALS: BP 123/83
--- NOTE | 2017-11-16 16:30 | NUR ---
11/16/17 RD INITIAL ASSESSMENT COMPLETED PLEASE REFER TO NUTRITION ASSESSMENT UNDER CARE ACTIVITY FOR ESTIMATED NUTRITIONAL NEEDS. 1. D/T SWALLOW EVAL RECOMMENDING NPO, CONSIDER NG TUBE PLACEMENT WITH FOLLOWING TF RECOMMENDATIONS: --TWOCAL HN @ GOAL RATE 30ML/H WITH 200 ML H2O FLUSH Q4H --THIS WILL PROVIDE 1440 KCAL (100% ESTIMATED ENERGY REQUIREMENTS), 60 GM PRO (113% ESTIMATED PROTEIN REQUIREMENTS), AND 1304 ML FLUID 2. WHEN/IF PT PASSES SWALLOW EVALUATION, CONSIDER ADVANCING DIET TOLERATED TO REGULAR DIET --CONSIDER ENSURE ENLIVE TID WITH MEALS 3. FOLLOW-UP UNDERWEIGHT AND GENERAL WELLNESS NUTRITION EDUCATION 4. RD TO FOLLOW-UP 2-3 DAYS, HIGH RISK TAO BA RD
--- NOTE | 2017-11-16 16:50 | NUR ---
DRIVER/GUIDE ROHAN AT BEDSIDE
--- NOTE | 2017-11-16 19:12 | NUR ---
Certified Histologic Technician Notes: I met with patient to discuss her tentative discharge plan and the possibility of her getting an NG tube due to her failing swallow evaluation. During discussion hospice services were also addressed. Patient verbalized that she is concerned about getting an NG tube due pain and discomfort. Patient stated she still would like to return home with [facility] upon discharge. However, she has realized that her mother's assistance with ADLs is limited due to her mother's night time babysitter employment. She reported not having any additional family support and is considering getting hospice services at home. She requested for education on hospice. I offered her a list of hospice companies. However, she stated she would like me to contact a hospice company with bilingual disciplinary team to meet with her. I informed her that I will contact [facility] to come meet with her and explain their services, ([facility] has an all Nigerian speaking disciplinary team). She agreed and thanked me for assistance. Patient stated she does not want hospice company to discuss her HIV status with any of her family members. She also stated she will provide MD and/or nursing staff with her decision regarding NG tube tomorrow morning. I contacted Kristen from [facility] and faxed patient's clinical information, fax number , I informed Kristen of patient's request regarding HIV status and concerns regarding home care assistance. Per Kristen, she and an RN Ruben will meet with patient tomorrow morning.
--- NOTE | 2017-11-16 19:25 | NUR ---
RECEIVED REPORT FROM DAY SHIFT NURSE AT PT BEDSIDE. RT CURRENTLY GIVING PT BREATHING TREATMENT. PT IS A/O X3. SKIN IS INTACT. PT HAS RU ARM DOUBLE LUMEN PICC WITH IVF RUNNING PER MD ORDERS. NO C/O PAIN AT THIS TIME. BED IS LOCKED, LOW POSITION WITH SIDE RAILS UP X2. BOARD UPDATED. CALL LIGHT IS WITHIN REACH. WILL CONTINUE TO MONITOR PT.
--- NOTE | 2017-11-16 19:25 | NUR ---
REPORT GIVEN TO MOTION PICTURE SCENE BUILDER NURSE. PT IN BED, ALERT, NO SIGNS OF DISTRESS. SAFETY MEASURES IN PLACE.
--- NOTE | 2017-11-16 19:34 | NUR ---
PATIENT REFUSES BIPAP AT THIS TIME. EXPLAINED IF SHE GETS SHORT OF BREATH SHE SHOULD WEAR IT. PT UNDERSTANDS
[2017-11-16 20:00] VITALS: BP 127/74
--- NOTE | 2017-11-16 20:25 | NUR ---
ASSISTED PT OFF OF BED [place], 200 ML EMPTIED.
[2017-11-16] MEDS: ATORVASTATIN 20 MG TAB PO SCH (20:30)
--- NOTE | 2017-11-16 20:55 | NUR ---
PT C/O PAIN IN BACK. PAIN MEDICINE GIVEN.
--- NOTE | 2017-11-16 21:55 | NUR ---
PT NOW SLEEPING IN BED. NO S/SX OF PAIN OR DISTRESS. WILL CONTINUE TO MONITOR PT.
--- NOTE | 2017-11-16 22:56 | NUR ---
NEW BAG OF IVF STARTED. PT ASLEEP IN BED. NO SIGNS OF DISTRESS. WILL CONTINUE TO MONITOR.
--- NOTE | 2017-11-16 23:29 | NUR ---
PT NOW AWAKE AND C/O PAIN. NO MEDICINE ORDERED. WILL SPEAK WITH RESIDENTS ABOUT PT PAIN.
--- NOTE | 2017-11-16 23:34 | NUR ---
SPOKE WITH RESIDENTS REGARDING PT PAIN. WILL INCREASE PAIN MEDICINE DOSAGE.
--- NOTE | 2017-11-16 23:49 | NUR ---
PT C/O PAIN IN TRUNK AREA. PAIN MEDICINE GIVEN. PT TOLERATED WELL. WILL CONTINUE TO MONITOR.
[2017-11-17] VITALS: BP 131/81
--- NOTE | 2017-11-17 00:50 | NUR ---
PT ASLEEP IN BED. NO SIGNS OF DISTRESS. WILL CONTINUE TO MONITOR.
--- NOTE | 2017-11-17 02:57 | NUR ---
PT ASLEEP IN BED. NO S/SX OF DISTRESS. O2 SATURATION IS GOOD. WILL CONTINUE TO MONITOR PT.
[2017-11-17 04:00] VITALS: BP 116/76
--- NOTE | 2017-11-17 05:00 | NUR ---
NO CHANGE IN CONDITION. WILL CONTINUE TO MONITOR PT.
[2017-11-17 06:01] LABS: BASOPHILS % (AUTO) 1.4 % (0.0-2.0); EOSINOPHILS # (AUTO) 0.3 K/uL (0-0.4); EOSINOPHILS % (AUTO) 10.3 % (0.0-4.0); HEMATOCRIT 32.8 % (36-48); HEMOGLOBIN 10.7 g/dL (12.0-16.0); LYMPHOCYTES # (AUTO) 0.3 K/uL (2.5-16.5); LYMPHOCYTES % (AUTO) 9.6 % (20.5-51.1); MEAN CORPUSCULAR HEMOGLOBIN 30 pg (27-31); MEAN CORPUSCULAR HGB CONC 33 g/dL (33-37); MEAN CORPUSCULAR VOLUME 91.2 fL (80-94); MONOCYTES # (AUTO) 0.5 K/uL (0.8-1.0); MONOCYTES % (AUTO) 19.3 % (1.7-9.3); NEUTROPHILS # (AUTO) 1.6 K/uL (1.8-7.7); NEUTROPHILS % (AUTO) 59.4 % (42.2-75.2); PLATELET COUNT (AUTO) 283 K/uL (140-450); RED CELL DISTRIBUTION WIDTH 15.1 % (11.6-13.7); WHITE BLOOD COUNT (AUTO) 2.8 K/uL (4.8-10.8)
[2017-11-17] MEDS: MORPHINE SULFATE 2 MG/ML SYR IVP PRN ×2 (06:21→13:06)
--- NOTE | 2017-11-17 06:21 | NUR ---
PT C/O PAIN. PAIN MEDICINE GIVEN.
[2017-11-17 06:28] LABS: ANION GAP 1.6 (8-16); CARBON DIOXIDE 38.2 mmol/L (21-32); CREATININE 0.4 mg/dL (0.6-1.3); POTASSIUM 3.8 mmol/L (3.5-5.1)
[2017-11-17 06:35] LABS: MAGNESIUM 2.1 mg/dL (1.8-2.4)
--- NOTE | 2017-11-17 07:10 | NUR ---
ENDORSED PT TO DAY SHIFT NURSE FOR CONTINUITY OF CARE. PT IN STABLE CONDITION.
--- NOTE | 2017-11-17 07:11 | NUR ---
RECEIVED REPORT FROM ANGIOGRAPHER RN. PATIENT IS SLEEPING BUT AWAKENS BY NAME CALLING. IS ON OXIMIZER 1L, HAS NO SIGNS AND SYMPTOMS OF ACUTE DISTRESS NOTED AT THIS TIME. HAS PICC LINE TO THE RIGHT ARM, DOUBLE LUMEN, WITH D5 1/2 NS AT 60 ML/HR. SITE IS CLEAN, DRY, PATENT AND INTACT. DISCUSSED PLAN OF CARE WITH PATIENT AND SOME REINFORCEMENT WAS NEEDED. BED IN LOWEST POSITION, SIDE RAILS UP X2, CALL LIGHT WITHIN REACH. WILL CONTINUE TO MONITOR.
[2017-11-17] MEDS: ALBUTEROL SULFATE/IPRATROPIU 3 ML SOL IH SCH ×3 (07:30→19:14)
[2017-11-17 08:00] VITALS: BP 113/74
--- NOTE | 2017-11-17 08:28 | NUR ---
ABG RESULTS GIVEN TO . NO NEW ORDERS AT THIS TIME.
[2017-11-17] MEDS: FLUCONAZOLE 100 MG TAB PO SCH (09:00)
[2017-11-17] MEDS: ACYCLOVIR 200 MG CAP PO SCH (09:00)
--- NOTE | 2017-11-17 10:50 | NUR ---
DR WHITLEY HERE TO EVALUATE PATIENT DUE TO FAILING SWALLOW EVAL. PATIENT STATED THAT SHE CAN SWALLOW FINE SO DR WHITLEY HAD HER SWALLOW A CUP OF WATER. NO CHOKING. SHE STATED THAT WHEN THE SPEECH THERAPIST WAS EVALUATING HER THAT SHE WAS GOING TO USE APPLESAUCE AND SHE DOESN'T LIKE APPLESAUCE. DR WHITLEY STATED HE WILL CHANGE HER DIET ORDER AND THAT SHE NEEDS TO SIT IN A CHAIR TO EAT.
--- NOTE | 2017-11-17 11:30 | NUR ---
HOSPICE NURSE CAME TO EVALUATE PATIENT GAVE ME A CARD AND I PLACED IT IN PATIENTS CHART WHERE THE LABELS ARE.
--- NOTE | 2017-11-17 11:52 | NUR ---
PT REFUSING TO TAKE OXYGEN OFF AT THIS TIME FOR HOME O2 EVALUATION. SPO2 98% ON 1L OXYMIZER. PT IS NOT SOB AND NOT IN RESPIRATORY DISTRESS. WILL CHECK BACK WITH PT AT A LATER TIME.
[2017-11-17 12:00] VITALS: BP 122/78
--- NOTE | 2017-11-17 12:20 | NUR ---
HOSPICE NURSE STATED THAT PATIENT IS ON BOARD WITH RECEIVING HOSPICE CARE. WILL INFORM THE DOCTOR.
[2017-11-17 16:00] VITALS: BP 125/77
--- NOTE | 2017-11-17 16:05 | NUR ---
PATIENT C/O HEAVINESS ON CHEST AND FEELS LIKE SHE ISN'T GETTING ENOUGH OXYGEN. ASSURED HER THAT SHE IS SATURATING AT 95%. STILL C/O OF NOT ENOUGH OXYGEN. INCREASED OXIMIZER TO 2L. O2 AT 100%. WILL CONTINUE TO MONITOR.
--- NOTE | 2017-11-17 16:23 | NUR ---
PHYSICAL THERAPY CO-SIGN The Physical Therapy Progress Notes documented by Exercise Instruct have been reviewed. Reviewed/Co-Signed by: Fallon Stroud PT Documentation Done by:ADY BLEDSOE PTA POC REVIEWED W/ AVIATION ENGINEER Addendum: 11/17/17 at 1623 by Fallon Stroud PT Amended: Links added.
[2017-11-17] MEDS: NACL 0.9% 1,000 ML IV SCH (16:41)
[2017-11-17] MEDS ORDERED: VANCOMYCIN PER PHARMACY MC PRN (18:25)
--- NOTE | 2017-11-17 19:14 | NUR ---
ENDORSED PATIENT TO DINING ROOM COORDINATOR RN FOR CONTINUITY OF CARE. PATIENT IN STABLE CONDITION.
--- NOTE | 2017-11-17 19:15 | NUR ---
RECEIVED PATIENT AWAKE ON BED ON COMFORTABLE POSITION. PATIENT IS MOZAMBICAN SPEAKING ONLY. DISCUSS PLAN OF CARE THROUGH MOZAMBICAN SPEAKING STAFF. FALL PRECAUTION APPLIED. WILL CONTINUE TO MONITOR.
[2017-11-17 20:00] VITALS: BP 116/64
[2017-11-17] MEDS: ATORVASTATIN 20 MG TAB PO SCH (20:12)
[2017-11-17] MEDS ORDERED: VANCOMYCIN 1,000 MG VIAL ONE (20:13)
[2017-11-17] MEDS ORDERED: NACL 0.9% IV SCH (20:30)
[2017-11-17] MEDS ORDERED: VANCOMYCIN HCL IV SCH (20:30)
[2017-11-17] MEDS ORDERED: VANCOMYCIN 1GM/DEXT 5% PREMIX 200 ML IV SCH (21:00)
--- NOTE | 2017-11-17 21:00 | NUR ---
MEDICATION GIVE. PATIENT ON 2L WITH OXYMIZER TOLERATED WELL IN SEMI FOWLERS POSITION. REPOSITIONED PATIENT AND PLACE IN COMFORTABLE POSITION. ALL NEEDS ATTENDED. NO S/S OF DISTRESS NOTED AT THIS TIME. WILL CONTINUE TO MONITOR.
[2017-11-17] MEDS: ACETAMINOPHEN 325 MG TAB PO PRN (21:24)
[2017-11-18] VITALS: BP 110/77
--- NOTE | 2017-11-18 | NUR ---
V/S TAKEN AND RECORDED WNL. 2L OXYMIZER IN PLACE . NO S/S OF DISTRESS NOTED AT THIS TIME. FALL PRECAUTION APPLIED. CALL LIGHT WITHIN REACH. ALL NEEDS ATTENDED. WILL CONTINUE TO MONITOR.
[2017-11-18] MEDS: MORPHINE SULFATE 2 MG/ML SYR IVP PRN (02:19)
--- NOTE | 2017-11-18 02:48 | NUR ---
CHECKED PATIENT ASLEEP IN SEMI -FOWLERS POSITION WITH 2L OXYMIZER IN PLACE . NO S/S OF DISTRESS NOTED. FALL PRECAUTION APPLIED. CALL LIGHT WITHIN REACH. WILL CONTINUE TO MONITOR.
[2017-11-18 04:00] VITALS: BP 124/72
--- NOTE | 2017-11-18 04:00 | NUR ---
SEEN PATIENT ASLEEP ON BED. V/S TAKEN AND RECORDED. NO S/S OF DISTRESS NOTED. ALL NEEDS ATTENDED. FALL PRECAUTION APPLIED. CALL LIGHT WITHIN REACH.
[2017-11-18] MEDS: NACL 0.9% 1,000 ML IV SCH (04:50)
[2017-11-18 06:05] LABS: BASOPHILS % (AUTO) 1.6 % (0.0-2.0); EOSINOPHILS # (AUTO) 0.2 K/uL (0-0.4); HEMATOCRIT 31.8 % (36-48); HEMOGLOBIN 10.4 g/dL (12.0-16.0); LYMPHOCYTES # (AUTO) 0.3 K/uL (2.5-16.5); LYMPHOCYTES % (AUTO) 9.3 % (20.5-51.1); MEAN CORPUSCULAR HEMOGLOBIN 30 pg (27-31); MEAN CORPUSCULAR HGB CONC 33 g/dL (33-37); MEAN CORPUSCULAR VOLUME 91.1 fL (80-94); MONOCYTES # (AUTO) 0.5 K/uL (0.8-1.0); MONOCYTES % (AUTO) 18.6 % (1.7-9.3); NEUTROPHILS # (AUTO) 1.7 K/uL (1.8-7.7); NEUTROPHILS % (AUTO) 61.5 % (42.2-75.2); PLATELET COUNT (AUTO) 295 K/uL (140-450); RED BLOOD CELL COUNT(AUTO) 3.49 MIL/uL (4.20-5.40); RED CELL DISTRIBUTION WIDTH 14.8 % (11.6-13.7); WHITE BLOOD COUNT (AUTO) 2.7 K/uL (4.8-10.8)
[2017-11-18 07:03] LABS: CARBON DIOXIDE 36.8 mmol/L (21-32); CREATININE 0.4 mg/dL (0.6-1.3)
[2017-11-18 07:04] LABS: MAGNESIUM 2.2 mg/dL (1.8-2.4); PHOSPHORUS 3.4 mg/dL (2.5-4.9)
[2017-11-18] MEDS: ALBUTEROL SULFATE/IPRATROPIU 3 ML SOL IH SCH (07:13)
[2017-11-18 07:16] LABS: ANION GAP 2.1 (8-16); POTASSIUM 3.9 mmol/L (3.5-5.1)
--- NOTE | 2017-11-18 07:20 | NUR ---
ENDORSEMENT GIVEN AT BEDSIDE TO AM SHIFT NURSE FOR CONTINUITY OF CARE. PATIENT IN STABLE CONDITION.
--- NOTE | 2017-11-18 07:20 | NUR ---
PT REFUSED BREATHING TX MASK TO BE PLACED ON PT. PT NOT SOB NOT IN RESPIRATORY DISTRESS AT THIS TIME.
--- NOTE | 2017-11-18 07:25 | NUR ---
RECEIVED REPORT FROM SCREW MACHINE ADJUSTER AUTOMATIC NURSE, PT IS RESTING IN BED, AAOX4, ON BEDREST, PT IS ON O2 2L OXYMIZER, DRYNESS AND REDNESS NOTED ON PT LIPS, PT HAS A PICC LINE ON HER RIGHT UPPER ARM, X 2 LUMEN, NO S/S OF RESPIRATORY DISTRESS OR DISCOMFORT NOTED, PT USES BEDPAN, DISCUSSED PLAN OF CARE WITH PT, PT VERBALIZED UNDERSTANDING, SAFETY/FALL PRECAUTIONS ARE IN PLACE, CALL LIGHT IS WITHIN REACH, WILL CONTINUE TO MONITOR.
[2017-11-18 08:00] VITALS: BP 121/70
--- NOTE | 2017-11-18 08:36 | NUR ---
BEDSIDE SWALLOW EVALUATION DONE. PT WAS ABLE TO SWALLOW AND TOLERATE A FULL LIQUID, THICKEN LIQUID, PUREE AND MECHANICAL SOFT DIET WITHOUT ANY COUGHING, PAIN OR SHORTNESS OF BREATH.
[2017-11-18] MEDS: FLUCONAZOLE 100 MG TAB PO SCH (09:41)
[2017-11-18] MEDS: ACYCLOVIR 200 MG CAP PO SCH (09:41)
--- NOTE | 2017-11-18 10:00 | NUR ---
RECEIVED PHONE CALL FROM MALDONADO WITH HOSPICE. HE WAS CALLING TO LET ME KNOW THE PATIENT WAS SET UP FOR TRANSPORTATION PRE BILLING SPECIALIST AT 1200. MALDONADO ASKED ME TO FAX DC PAPERWORK TO [phone]. MALDONADO PHONE NUMBER [phone].
[2017-11-18] MEDS ORDERED: ACYC200C4 PO (10:07)
[2017-11-18] MEDS ORDERED: FLUC100T1 PO (10:09)
--- NOTE | 2017-11-18 11:30 | NUR ---
DISCHARGE INSTRUCTIONS GIVEN, PICC LINE IN RIGHT UPPER ARM LEFT IN PLACE. PT HAS NO BARON CATHETER.
--- NOTE | 2017-11-18 12:00 | NUR ---
PT STABLE UPON DISCHARGE WITH O2 2L NC. PT PICKED UP BY [facility].
[2017-11-18] MEDS ORDERED: VANCOMYCIN 500 MG in DEXTROSE 5% 100 ML IV SCH (15:00)
== END 2017-11-18 12:00 | disposition hospice, home (50) | DRG 974 ==
LOC: MED 13:18 → MTU 15:27
PROVIDERS: ADMIT General Practice; ATTEND General Practice
PROC: 5A09357 Assistance with Respiratory Ventilation, Less than 24 Consecutive Hours, Continuous Positive Airway Pressure (ICD-10-PCS; principal; 2017-11-14)
DX: B20 Human immunodeficiency virus [HIV] disease (principal); B59 Pneumocystosis; E43 Unspecified severe protein-calorie malnutrition; J96.21 Acute and chronic respiratory failure with hypoxia; J96.22 Acute and chronic respiratory failure with hypercapnia; E87.1 Hypo-osmolality and hyponatremia; J44.1 Chronic obstructive pulmonary disease with (acute) exacerbation; B37.0 Candidal stomatitis; E87.3 Alkalosis; Z68.1 Body mass index [BMI] 19.9 or less, adult; E78.5 Hyperlipidemia, unspecified; B00.1 Herpesviral vesicular dermatitis; R13.10 Dysphagia, unspecified; R62.7 Adult failure to thrive; E83.39 Other disorders of phosphorus metabolism; E87.6 Hypokalemia; E87.8 Other disorders of electrolyte and fluid balance, not elsewhere classified; J84.17 Other interstitial pulmonary diseases with fibrosis in diseases classified elsewhere; D63.8 Anemia in other chronic diseases classified elsewhere; Z85.118 Personal history of other malignant neoplasm of bronchus and lung; Z86.14 Personal history of Methicillin resistant Staphylococcus aureus infection; Z88.6 Allergy status to analgesic agent; Z79.899 Other long term (current) drug therapy
CPT/HCPCS: 36415; 36600; 71045; 71250; 80048; 80053; 80305; 81003; 81025; 82550; 82803; 83605; 83690; 83735; 83880; 84100; 84134; 84484; 85025; 85610; 85730; 87040; 87081; 87086; 87205; 92526; 93005; 94640; 94660; 96361; 96365; 96375; 97110; 97116; 97161-GP; 97530; 99291; J0696; J1956; J2060; J2270; J2765; J2997; J3010; J3370; J7030; J7060; J7613; J7620; J7644; Q0092